=== PATIENT | male | born 1965 | race Caucasian/White ===

== ENCOUNTER → 2017-05-18 | Outpatient (CLI) | payer OTHER ==
--- NOTE | 2017-05-18 14:45 | US ---
EXAMINATION TYPE: US kidneys/renal and bladder DATE OF EXAM: 05/18/2017 COMPARISON: NONE CLINICAL HISTORY: N18.9 Renal failure. Diabetic, ARF EXAM MEASUREMENTS: Right Kidney: 12.2 x 6.0 x 6.8cm Left Kidney: 11.9 x 5.1 x 7.3cm Right Kidney: No hydronephrosis or masses seen Left Kidney: No hydronephrosis or masses seen Bladder: wnl Bilateral Jets seen: yes There is no evidence for hydronephrosis at this point in time. No nephrolithiasis is seen. No laquita s are identified. The urinary bladder is anechoic. Bilateral ureteral jets are seen. Cortical medul hans differentiation is maintained. No cortical renal thinning. IMPRESSION: No sonographic evidence of hydronephrosis, nephrolithiasis or medical renal disease.
== END | disposition home or self-care (01) ==
LOC: RADUSWWP 14:11
PROVIDERS: ATTEND Family Medicine
DX: N17.9 Acute kidney failure, unspecified (principal)
CPT/HCPCS: 76770

== ENCOUNTER → 2017-05-19 | Outpatient (CLI) | payer OTHER | END | disposition home or self-care (01) | LOC: LABWHC1 10:51 | PROVIDERS: ATTEND Physician Assistant | DX: R80.9 Proteinuria, unspecified (principal) | CPT/HCPCS: 36415; 82575 ==

== ENCOUNTER 2018-04-25 07:58 | Emergency (ER) | payer OTHER ==
[2018-04-25] MEDS ORDERED: FUROSEMIDE 10 MG/ML 4 ML VIAL IV STA (08:09)
[2018-04-25] MEDS ORDERED: IPRATROPIUM-ALBUTEROL 3 ML NEB INHALATION STA ×2 (08:09→09:34)
--- NOTE | 2018-04-25 08:28 | ED ---
General Adult HPI - General Chief complaint: Shortness of Breath Stated complaint: SOB Time Seen by Provider: 04/25/18 08:09 Source: patient, RN notes reviewed, old records reviewed Mode of arrival: wheelchair Limitations: no limitations - History of Present Illness Initial comments: This is a 52-year-old male to the ER for evaluation. Patient presents today for evaluation significant shortness of breath, history of heart disease. Patient has history of heart failure. Unable to sleep laying down unable to sleep laying backwards. Severe exertional dyspnea. No fevers. No chest pain currently. Patient has no modifying factors for symptoms at home to improve, they're significantly worse with any activity patient does admit to recently taking backup cigarette smoking. Little small cigar smoking. And states that that is been going on for some time secondary to increased stress. Patient admits not feeling good up unable to sleep tonight secondary to severe shortness of breath. Again denies any chest pain, mild edema and lower extremities - Related Data Home Medications Medication Instructions Recorded Confirmed Atorvastatin [Lipitor] 20 mg PO HS 12/02/15 12/03/15 Quinapril HCl 40 mg PO BID 12/02/15 12/03/15 amLODIPine [Norvasc] 5 mg PO DAILY 12/02/15 12/03/15 metFORMIN HCL 1,000 mg PO BID 12/02/15 12/03/15 Aspirin 325 mg PO DAILY 12/03/15 12/03/15 Previous Rx's Medication Instructions Recorded Levofloxacin [Levaquin] 500 mg PO DAILY #4 tab 12/10/15 Allergies Allergy/AdvReac Type Severity Reaction Status Date / Time No Known Allergies Allergy Verified 12/02/15 20:44 Review of Systems ROS Statement: Those systems with pertinent positive or pertinent negative responses have been documented in the HPI. ROS Other: All systems not noted in ROS Statement are negative. Past Medical History Past Medical History: Heart Failure, Diabetes Mellitus, Hyperlipidemia, Hypertension History of Any Multi-Drug Resistant Organisms: None Reported Past Surgical History: No Surgical Hx Reported Past Anesthesia/Blood Transfusion Reactions: No Reported Reaction Past Psychological History: No Psychological Hx Reported Smoking Status: Current every day smoker Past Alcohol Use History: None Reported Past Drug Use History: None Reported - Past Family History Father History Unknown: Yes Family Medical History: No Reported History Mother History Unknown: Yes Family Medical History: Coronary Artery Disease (CAD), Diabetes Mellitus Additional Family Medical History / Comment(s): cabg Brother(s) History Unknown: Yes Family Medical History: No Reported History Sister(s) History Unknown: Yes Family Medical History: No Reported History Son(s) History Unknown: Yes Family Medical History: No Reported History General Exam Limitations: no limitations General appearance: alert, anxious, in distress, obese Head exam: Present: atraumatic, normocephalic, normal inspection Eye exam: Present: normal appearance, PERRL, EOMI. Absent: scleral icterus, conjunctival injection, periorbital swelling ENT exam: Present: normal exam, mucous membranes moist Neck exam: Present: normal inspection. Absent: tenderness, meningismus, lymphadenopathy Respiratory exam: Present: respiratory distress, wheezes, rales, accessory muscle use, decreased breath sounds, prolonged expiratory. Absent: normal lung sounds bilaterally, rhonchi, stridor Cardiovascular Exam: Present: normal rhythm, tachycardia, normal heart sounds. Absent: systolic murmur, diastolic murmur, rubs, gallop, clicks GI/Abdominal exam: Present: soft, normal bowel sounds. Absent: distended, tenderness, guarding, rebound, rigid Extremities exam: Present: normal inspection, full ROM, normal capillary refill. Absent: tenderness, pedal edema, joint swelling, calf tenderness Back exam: Present: normal inspection Neurological exam: Present: alert, oriented X3, CN II-XII intact Psychiatric exam: Present: normal affect, normal mood Skin exam: Present: warm, dry, intact, normal color. Absent: rash Course Vital Signs 04/25/18 04/25/18 04/25/18 08:04 08:28 08:36 Temperature 98.4 F Pulse Rate 124 H 117 H 119 H Respiratory 26 H Rate Blood Pressure 192/111 O2 Sat by Pulse 91 L Oximetry 04/25/18 09:15 Temperature Pulse Rate 102 H Respiratory 20 Rate Blood Pressure 166/99 O2 Sat by Pulse 92 L Oximetry - Reevaluation(s) Reevaluation #1: 04/25/18 09:40 Patient has significant improvement after breathing treatment Reevaluation #2: 04/25/18 09:40 Medical record is reviewed include prior hospitalizations, prior troponin Reevaluation #3: 04/25/18 09:40 Patient's blood pressure much improved EKG Findings - EKG Comments: EKG Findings:: EKG shows sinus tachycardia rate 121, CA 150, QRS 112, QTc 457 Medical Decision Making - Medical Decision Making 52 male the ER for evaluation of respiratory failure secondary to COPD and CHF, hypoxia, patient is improved with treatment here in the emergency room, will admit for continued observation of cardiopulmonary resuscitation and status - Lab Data Result diagrams: 04/25/18 08:39 04/25/18 08:39 Lab Results 04/25/18 04/25/18 04/25/18 Range/Units 08:39 08:39 08:39 WBC 18.0 H (3.8-10.6) k/uL RBC 6.41 H (4.30-5.90) m/uL Hgb 18.2 H (13.0-17.5) gm/dL Hct 54.3 H (39.0-53.0) % MCV 84.8 (80.0-100.0) fL MCH 28.4 (25.0-35.0) pg MCHC 33.5 (31.0-37.0) g/dL RDW 13.6 (11.5-15.5) % Plt Count 279 (150-450) k/uL Neutrophils % 82 % Lymphocytes % 7 % Monocytes % 8 % Eosinophils % 1 % Basophils % 1 % Neutrophils # 14.8 H (1.3-7.7) k/uL Lymphocytes # 1.3 (1.0-4.8) k/uL Monocytes # 1.4 H (0-1.0) k/uL Eosinophils # 0.2 (0-0.7) k/uL Basophils # 0.1 (0-0.2) k/uL PT (9.0-12.0) sec INR (<1.2) APTT (22.0-30.0) sec Sodium 137 (137-145) mmol/L Potassium 5.3 H (3.5-5.1) mmol/L Chloride 105 (98-107) mmol/L Carbon Dioxide 19 L (22-30) mmol/L Anion Gap 13 mmol/L BUN 31 H (9-20) mg/dL Creatinine 1.20 (0.66-1.25) mg/dL Est GFR (CKD-EPI)AfAm 79 (>60 ml/min/1.73 sqM) Est GFR (CKD-EPI)NonAf 68 (>60 ml/min/1.73 sqM) Glucose 463 H* (74-99) mg/dL Calcium 9.9 (8.4-10.2) mg/dL Magnesium 1.8 (1.6-2.3) mg/dL Total Bilirubin 0.6 (0.2-1.3) mg/dL AST 33 (17-59) U/L ALT 34 (21-72) U/L Alkaline Phosphatase 61 (38-126) U/L Total Creatine Kinase 96 (55-170) U/L CK-MB (CK-2) 2.0 (0.0-2.4) ng/mL CK-MB (CK-2) Rel Index 2.1 Troponin I 0.031 (0.000-0.034) ng/mL NT-Pro-B Natriuret Pep pg/mL Total Protein 6.9 (6.3-8.2) g/dL Albumin 4.3 (3.5-5.0) g/dL 04/25/18 04/25/18 Range/Units 08:39 08:39 WBC (3.8-10.6) k/uL RBC (4.30-5.90) m/uL Hgb (13.0-17.5) gm/dL Hct (39.0-53.0) % MCV (80.0-100.0) fL MCH (25.0-35.0) pg MCHC (31.0-37.0) g/dL RDW (11.5-15.5) % Plt Count (150-450) k/uL Neutrophils % % Lymphocytes % % Monocytes % % Eosinophils % % Basophils % % Neutrophils # (1.3-7.7) k/uL Lymphocytes # (1.0-4.8) k/uL Monocytes # (0-1.0) k/uL Eosinophils # (0-0.7) k/uL Basophils # (0-0.2) k/uL PT 9.4 (9.0-12.0) sec INR 0.9 (<1.2) APTT 23.2 (22.0-30.0) sec Sodium (137-145) mmol/L Potassium (3.5-5.1) mmol/L Chloride (98-107) mmol/L Carbon Dioxide (22-30) mmol/L Anion Gap mmol/L BUN (9-20) mg/dL Creatinine (0.66-1.25) mg/dL Est GFR (CKD-EPI)AfAm (>60 ml/min/1.73 sqM) Est GFR (CKD-EPI)NonAf (>60 ml/min/1.73 sqM) Glucose (74-99) mg/dL Calcium (8.4-10.2) mg/dL Magnesium (1.6-2.3) mg/dL Total Bilirubin (0.2-1.3) mg/dL AST (17-59) U/L ALT (21-72) U/L Alkaline Phosphatase (38-126) U/L Total Creatine Kinase (55-170) U/L CK-MB (CK-2) (0.0-2.4) ng/mL CK-MB (CK-2) Rel Index Troponin I (0.000-0.034) ng/mL NT-Pro-B Natriuret Pep 3170 pg/mL Total Protein (6.3-8.2) g/dL Albumin (3.5-5.0) g/dL - Radiology Data Radiology results: report reviewed (Chest x-ray shows likely see OPD), image reviewed Disposition Clinical Impression: Elevated troponin I measurement, Congestive heart failure, Systolic CHF, acute on chronic, Acute exacerbation of chronic obstructive airways disease, HTN ( hypertension) Disposition: ADMITTED IP TO THIS HOSP Condition: Good Is patient prescribed a controlled substance at d/c from ED?: No Referrals: Judd Stanley MD [Primary Care Provider] - 1-2 days
[2018-04-25 08:57] LABS: Basophils # (A) 0.1 k/uL (0-0.2); Basophils % (A) 1 %; Eosinophils # (A) 0.2 k/uL (0-0.7); Eosinophils % (A) 1 %; HCT 54.3 % (39.0-53.0); HGB 18.2 gm/dL (13.0-17.5); Lymphocytes # (A) 1.3 k/uL (1.0-4.8); Lymphocytes % (A) 7 %; MCH 28.4 pg (25.0-35.0); MCHC 33.5 g/dL (31.0-37.0); MCV 84.8 fL (80.0-100.0); Mean Platelet Volume 7.8; Monocytes # (A) 1.4 k/uL (0-1.0); Monocytes % (A) 8 %; Neutrophils # (A) 14.8 k/uL (1.3-7.7); Neutrophils % (A) 82 %; Platelet Count 279 k/uL (150-450); RBC 6.41 m/uL (4.30-5.90); RDW 13.6 % (11.5-15.5)
--- NOTE | 2018-04-25 08:59 | XR ---
EXAMINATION TYPE: XR chest 2V DATE OF EXAM: 04/25/2018 HISTORY: difficulty breathing. REFERENCE: Previous study dated 12/10/2015. FINDINGS: Lines are prominent. Heart size upper limits of normal. The lungs are clear. Pleural spaces are clear. IMPRESSION: 1. CORRELATE FOR COPD. 2. BORDERLINE CARDIOMEGALY
[2018-04-25 09:03] LABS: INR 0.9 (<1.2); Partial Thromboplastin Time 23.2 sec (22.0-30.0); Prothrombin Time 9.4 sec (9.0-12.0)
[2018-04-25 09:08] LABS: Albumin 4.3 g/dL (3.5-5.0); Calcium 9.9 mg/dL (8.4-10.2); Magnesium 1.8 mg/dL (1.6-2.3); Total Bilirubin 0.6 mg/dL (0.2-1.3); Total Protein 6.9 g/dL (6.3-8.2)
[2018-04-25 09:15] LABS: Potassium 5.3 mmol/L (3.5-5.1)
[2018-04-25] MEDS ORDERED: LABETALOL 5 MG/ML VIAL MDV IVP STA (09:15)
[2018-04-25] MEDS ORDERED: ENALAPRILAT 1.25 MG/ML 1 ML VIAL IVP STA (09:15)
[2018-04-25] MEDS ORDERED: INSULIN REGULAR 100 UNIT/ML VIAL IV ONE (09:16)
[2018-04-25] MEDS ORDERED: SODIUM CHLORIDE 0.9% 1,000 ML IV STA ×2 (09:16)
[2018-04-25 09:26] LABS: Troponin I 0.031 ng/mL (0.000-0.034)
[2018-04-25] MEDS ORDERED: methylPREDNISolone SOD SUCCI 125 MG/2 ML VIAL IV STA (09:34)
[2018-04-25] MEDS ORDERED: SODIUM CHLORIDE 0.9% 1,000 ML IV SCH (09:45)
[2018-04-25 10:50] LABS: Glucose,Whole Blood 333 mg/dL (75-99)
[2018-04-25] MEDS ORDERED: NICOTINE 14MG/24HR PATCH TRANSDERM SCH (11:00)
[2018-04-25] MEDS ORDERED: ALBUTEROL NEBULIZED 2.5 MG/3 ML INHALATION STA (11:08)
[2018-04-25] MEDS ORDERED: IPRATROPIUM-ALBUTEROL 3 ML NEB INHALATION SCH (12:00)
[2018-04-25 12:30] VITALS: BP 120/57; RESP 16; TEMP 97.9
[2018-04-25 12:39] VITALS: PULSE 96
[2018-04-25] MEDS ORDERED: methylPREDNISolone SOD SUCCI 125 MG/2 ML VIAL IV SCH (18:00)
[2018-04-26] MEDS ORDERED: ENOXAPARIN 40 MG/0.4 ML SYRINGE SQ SCH (09:00)
== END 2018-04-25 13:15 | disposition other institution (70) ==
LOC: EC 07:58 → UNDOADMIN 09:38 → 6SEL 09:38 → EC 13:15
DX: J44.1 Chronic obstructive pulmonary disease with (acute) exacerbation (principal); I11.0 Hypertensive heart disease with heart failure; I50.9 Heart failure, unspecified; R79.89 Other specified abnormal findings of blood chemistry; E11.9 Type 2 diabetes mellitus without complications; E78.5 Hyperlipidemia, unspecified; F17.210 Nicotine dependence, cigarettes, uncomplicated; Z79.82 Long term (current) use of aspirin; Z79.84 Long term (current) use of oral hypoglycemic drugs; Z79.899 Other long term (current) drug therapy; Z53.8 Procedure and treatment not carried out for other reasons
CPT/HCPCS: 99285; 96374; 96375 ×2; 96361 ×3; 36415; 94640; 93005; 83880; 80053; 82550; 82553; 83735; 84484; 85025; 85610; 85730; 71046; S4990; J1940; J2930

== ENCOUNTER 2018-07-28 20:43 | Inpatient (IN) | payer OTHER ==
[2018-07-28] MEDS ORDERED: ETOMIDATE 2 MG/ML 10 ML VIAL IVP STA (20:47)
[2018-07-28] MEDS ORDERED: ROCURONIUM BROMIDE 10 MG/ML 10 ML VIAL IV STA (20:48)
[2018-07-28] MEDS ORDERED: PROPOFOL 1,000 MG in EMPTY BAG 1 BAG IV STA (20:50)
[2018-07-28] MEDS ORDERED: methylPREDNISolone SOD SUCCI 125 MG/2 ML VIAL IV STA (20:52)
[2018-07-28] MEDS ORDERED: ALBUTEROL NEBULIZED 2.5 MG/3 ML INHALATION STA (20:52)
[2018-07-28] MEDS ORDERED: IPRATROPIUM 0.5 MG/2.5 ML NEBU INHALATION STA (20:52)
[2018-07-28] MEDS ORDERED: FUROSEMIDE 10 MG/ML 4 ML VIAL IV STA (20:52)
[2018-07-28] MEDS ORDERED: NITROGLYCERIN-D5W PMX 50 MG in DEXTROSE/WATER 1 250ML.BAG IV STA (21:05)
[2018-07-28] MEDS: METOPROLOL TARTRATE 5 MG/5 ML VIAL IVP STA ×3 (21:05→21:20)
[2018-07-28 21:13] LABS: Basophils # (A) 0.1 k/uL (0-0.2); Basophils % (A) 1 %; Eosinophils # (A) 0.2 k/uL (0-0.7); Eosinophils % (A) 1 %; HCT 51.7 % (39.0-53.0); HGB 16.2 gm/dL (13.0-17.5); Hypochromasia Slight; Lymphocytes # (A) 4.4 k/uL (1.0-4.8); Lymphocytes % (A) 24 %; MCH 28.7 pg (25.0-35.0); MCHC 31.2 g/dL (31.0-37.0); MCV 91.8 fL (80.0-100.0); Mean Platelet Volume 7.4; Monocytes # (A) 1.5 k/uL (0-1.0); Monocytes % (A) 8 %; Neutrophils # (A) 11.6 k/uL (1.3-7.7); Neutrophils % (A) 63 %; Platelet Count 300 k/uL (150-450); RBC 5.63 m/uL (4.30-5.90); RDW 13.4 % (11.5-15.5); WBC 18.3 k/uL (3.8-10.6)
--- NOTE | 2018-07-28 21:16 | ED ---
General Adult HPI - General Chief complaint: Shortness of Breath Stated complaint: SOB Time Seen by Provider: 07/28/18 20:52 Source: patient, EMS, RN notes reviewed, old records reviewed Mode of arrival: EMS - History of Present Illness Initial comments: 52-year-old male presenting as priority 1 respiratory distress. History obtained from EMS. No history obtained from the patient. EMS reported 24 hours worsening dyspnea. History of COPD and heart failure. Upon EMS arrival patient was hypoxic in the 80s, severe respiratory distress. He was unable to tolerate CPAP. He was brought in on a nonrebreather. Patient had agonal respirations, cyanosis, tachycardia in the 150s and elevated blood pressure upon arrival. He is intubated at the time of presentation. - Related Data Home Medications Medication Instructions Recorded Confirmed Metoprolol Succinate (ER) [Toprol 50 mg PO DAILY 04/25/18 07/28/18 Xl] Albuterol Nebulized [Ventolin 1 vial INHALATION RT-TID 07/28/18 07/28/18 Nebulized] Insulin Glargine,Hum.rec.anlog 1 dose SQ DAILY 07/28/18 07/28/18 [Basaglar Kwikpen U-100] Quinapril HCl 40 mg PO DAILY 07/28/18 07/28/18 Previous Rx's Medication Instructions Recorded Albuterol Inhaler [Ventolin Hfa 1 - 2 puff INHALATION RT-Q6H #1 04/25/18 Inhaler] inhaler Furosemide [Lasix] 40 mg PO DAILY #5 tablet 04/25/18 Allergies Allergy/AdvReac Type Severity Reaction Status Date / Time No Known Allergies Allergy Verified 07/28/18 20:55 Review of Systems ROS Statement: Those systems with pertinent positive or pertinent negative responses have been documented in the HPI. ROS Other: All systems not noted in ROS Statement are negative. Limitations: ROS unobtainable due to patients medical condition Past Medical History Past Medical History: Heart Failure, Diabetes Mellitus, Hyperlipidemia, Hypertension History of Any Multi-Drug Resistant Organisms: None Reported Past Surgical History: No Surgical Hx Reported Past Anesthesia/Blood Transfusion Reactions: No Reported Reaction Past Psychological History: No Psychological Hx Reported Smoking Status: Current every day smoker Past Alcohol Use History: None Reported Past Drug Use History: None Reported - Past Family History Father History Unknown: Yes Family Medical History: No Reported History Mother History Unknown: Yes Family Medical History: Coronary Artery Disease (CAD), Diabetes Mellitus Additional Family Medical History / Comment(s): cabg Brother(s) History Unknown: Yes Family Medical History: No Reported History Sister(s) History Unknown: Yes Family Medical History: No Reported History Son(s) History Unknown: Yes Family Medical History: No Reported History General Exam Limitations: altered mental status General appearance: obtunded Head exam: Present: atraumatic, normocephalic Eye exam: Present: normal appearance, PERRL ENT exam: Present: normal exam Neck exam: Present: normal inspection Respiratory exam: Present: respiratory distress, wheezes, rales, accessory muscle use, decreased breath sounds Cardiovascular Exam: Present: normal rhythm, tachycardia GI/Abdominal exam: Present: soft, distended. Absent: tenderness Extremities exam: Present: pedal edema Skin exam: Present: cyanosis, diaphoretic Course Vital Signs 07/28/18 07/28/18 07/28/18 20:43 20:49 21:02 Temperature 97.5 F L Pulse Rate 144 H 150 H Respiratory 32 H 32 H 16 Rate Blood Pressure 227/163 O2 Sat by Pulse 80 L Oximetry 07/28/18 21:20 Temperature Pulse Rate 126 H Respiratory 14 Rate Blood Pressure 197/141 O2 Sat by Pulse 96 Oximetry - Reevaluation(s) Reevaluation #1: 07/28/18 21:05 Severity respiratory distress, hypertensive, tachycardic, hypoxic. 07/28/18 22:30 Further history obtained from the patient's , he has had episodes of heart failure requiring intubation in the past. Reevaluation #2: 07/28/18 22:04 Patient is evaluated by admitting physician Dr. Fleming in the emergency department. Case discussed with both cardiology and pulmonology prior to admission. EKG Findings - EKG Comments: EKG Findings:: EKG obtained at 2059, SVT, rate of 145 QRS duration 114, QTC 590. EKG obtained at 2135, interpreted as atrial flutter with 2-1 AV conduction , I feel this may be sinus tachycardia at rate of 125, rightward access, normal WA interval. QRS duration 114, QTC 453. EKG obtained 4, sinus tachycardia, left atrial enlargement, rightward axis, rate of 112, WA interval 158, QRS duration 112, QTC 437 elevation or T-wave inversion in the lateral precordial leads. Procedures - Intubation Time Out Performed: Yes Sedative: Etomidate Mg Given: 20 Paralytic: Rocuronium Mg Given: 80 Laryngoscope: Willis Size: 3 ET Tube Size: 8 ET Tube Uncuffed: No Tube Secured Depth (cm): 24 Tube Secured Location: lips Tube Placement Confirmation: visualized tube passing through cords, equal breath sounds bilaterally, no breath sounds over epigastrium, confirmation by capnometry Patient Tolerated Procedure: well Intubation Complications: other Additional Comments: Oropharynx failed with emesis Medical Decision Making - Medical Decision Making 52-year-old male presenting with severe respiratory distress, near cardiopulmonary arrest. Patient is tachypneic, cyanotic and lethargic on initial presentation. He was intubated immediately. Initial vital signs reveal tachycardia, tachypnea, hypoxia, and severely elevated blood pressure. Concern is that this is related to hypertensive emergency with flash pulmonary edema. Patient is started on nitroglycerin infusion, given metoprolol for rate control, and IV Lasix. Laboratory studies reveal significant abnormalities including white blood cell count elevated 18.3, hemoglobin is normal 16.4, lactic acid 10.3, this is likely related to hypoxia and is treated with mechanical ventilation and respiratory support. Troponin elevated 0.047, elevated BNP 2060, chest x-ray shows cardiomegaly with pulmonary edema. Initial ABG is abnormal with a pH is 7.05 and a CO2 of 77. Case is discussed with cardiology and pulmonology. Patient will be admitted to the ICU. Maintained on nitroglycerin, propofol infusion, heparin. - Lab Data Result diagrams: 07/28/18 20:54 07/28/18 20:54 Lab Results 07/28/18 07/28/18 07/28/18 Range/Units 20:54 20:54 20:54 WBC 18.3 H (3.8-10.6) k/uL RBC 5.63 (4.30-5.90) m/uL Hgb 16.2 (13.0-17.5) gm/dL Hct 51.7 (39.0-53.0) % MCV 91.8 (80.0-100.0) fL MCH 28.7 (25.0-35.0) pg MCHC 31.2 (31.0-37.0) g/dL RDW 13.4 (11.5-15.5) % Plt Count 300 (150-450) k/uL Neutrophils % 63 % Lymphocytes % 24 % Monocytes % 8 % Eosinophils % 1 % Basophils % 1 % Neutrophils # 11.6 H (1.3-7.7) k/uL Lymphocytes # 4.4 (1.0-4.8) k/uL Monocytes # 1.5 H (0-1.0) k/uL Eosinophils # 0.2 (0-0.7) k/uL Basophils # 0.1 (0-0.2) k/uL Hypochromasia Slight PT (9.0-12.0) sec INR (<1.2) APTT (22.0-30.0) sec Sample Site ABG pH (7.35-7.45) ABG pCO2 (35-45) mmHg ABG pO2 (83-108) mmHg ABG HCO3 (21-25) mmol/L ABG Total CO2 (19-24) mmol/L ABG O2 Saturation (94-97) % ABG Base Excess mmol/L Juwan Test FiO2 % Sodium 138 (137-145) mmol/L Potassium 5.6 H (3.5-5.1) mmol/L Chloride 103 (98-107) mmol/L Carbon Dioxide 18 L (22-30) mmol/L Anion Gap 17 mmol/L BUN 22 H (9-20) mg/dL Creatinine 1.57 H (0.66-1.25) mg/dL Est GFR (CKD-EPI)AfAm 57 (>60 ml/min/1.73 sqM) Est GFR (CKD-EPI)NonAf 49 (>60 ml/min/1.73 sqM) Glucose 381 H (74-99) mg/dL POC Glucose (mg/dL) (75-99) mg/dL POC Glu Steward/Stewardess Third ID Plasma Lactic Acid Nick (0.7-2.0) mmol/L Calcium 9.3 (8.4-10.2) mg/dL Magnesium 2.2 (1.6-2.3) mg/dL Total Bilirubin 1.6 H (0.2-1.3) mg/dL AST 112 H (17-59) U/L ALT 16 L (21-72) U/L Alkaline Phosphatase 49 (38-126) U/L Total Creatine Kinase 145 (55-170) U/L CK-MB (CK-2) 2.1 (0.0-2.4) ng/mL CK-MB (CK-2) Rel Index 1.4 Troponin I 0.047 H* (0.000-0.034) ng/mL NT-Pro-B Natriuret Pep pg/mL Total Protein 7.3 (6.3-8.2) g/dL Albumin 4.4 (3.5-5.0) g/dL 07/28/18 07/28/18 07/28/18 Range/Units 20:54 20:54 20:54 WBC (3.8-10.6) k/uL RBC (4.30-5.90) m/uL Hgb (13.0-17.5) gm/dL Hct (39.0-53.0) % MCV (80.0-100.0) fL MCH (25.0-35.0) pg MCHC (31.0-37.0) g/dL RDW (11.5-15.5) % Plt Count (150-450) k/uL Neutrophils % % Lymphocytes % % Monocytes % % Eosinophils % % Basophils % % Neutrophils # (1.3-7.7) k/uL Lymphocytes # (1.0-4.8) k/uL Monocytes # (0-1.0) k/uL Eosinophils # (0-0.7) k/uL Basophils # (0-0.2) k/uL Hypochromasia PT 9.8 (9.0-12.0) sec INR 1.0 (<1.2) APTT 19.5 L (22.0-30.0) sec Sample Site ABG pH (7.35-7.45) ABG pCO2 (35-45) mmHg ABG pO2 (83-108) mmHg ABG HCO3 (21-25) mmol/L ABG Total CO2 (19-24) mmol/L ABG O2 Saturation (94-97) % ABG Base Excess mmol/L Juwan Test FiO2 % Sodium (137-145) mmol/L Potassium (3.5-5.1) mmol/L Chloride (98-107) mmol/L Carbon Dioxide (22-30) mmol/L Anion Gap mmol/L BUN (9-20) mg/dL Creatinine (0.66-1.25) mg/dL Est GFR (CKD-EPI)AfAm (>60 ml/min/1.73 sqM) Est GFR (CKD-EPI)NonAf (>60 ml/min/1.73 sqM) Glucose (74-99) mg/dL POC Glucose (mg/dL) (75-99) mg/dL POC Glu Steward/Stewardess Third ID Plasma Lactic Acid Nick 10.3 H* (0.7-2.0) mmol/L Calcium (8.4-10.2) mg/dL Magnesium (1.6-2.3) mg/dL Total Bilirubin (0.2-1.3) mg/dL AST (17-59) U/L ALT (21-72) U/L Alkaline Phosphatase (38-126) U/L Total Creatine Kinase (55-170) U/L CK-MB (CK-2) (0.0-2.4) ng/mL CK-MB (CK-2) Rel Index Troponin I (0.000-0.034) ng/mL NT-Pro-B Natriuret Pep 2060 pg/mL Total Protein (6.3-8.2) g/dL Albumin (3.5-5.0) g/dL 07/28/18 07/28/18 Range/Units 21:12 21:35 WBC (3.8-10.6) k/uL RBC (4.30-5.90) m/uL Hgb (13.0-17.5) gm/dL Hct (39.0-53.0) % MCV (80.0-100.0) fL MCH (25.0-35.0) pg MCHC (31.0-37.0) g/dL RDW (11.5-15.5) % Plt Count (150-450) k/uL Neutrophils % % Lymphocytes % % Monocytes % % Eosinophils % % Basophils % % Neutrophils # (1.3-7.7) k/uL Lymphocytes # (1.0-4.8) k/uL Monocytes # (0-1.0) k/uL Eosinophils # (0-0.7) k/uL Basophils # (0-0.2) k/uL Hypochromasia PT (9.0-12.0) sec INR (<1.2) APTT (22.0-30.0) sec Sample Site r brach ABG pH 7.05 L* (7.35-7.45) ABG pCO2 77 H* (35-45) mmHg ABG pO2 256 H (83-108) mmHg ABG HCO3 21 (21-25) mmol/L ABG Total CO2 24 (19-24) mmol/L ABG O2 Saturation 98.1 H (94-97) % ABG Base Excess -9.2 mmol/L Juwan Test Yes FiO2 100 % Sodium (137-145) mmol/L Potassium (3.5-5.1) mmol/L Chloride (98-107) mmol/L Carbon Dioxide (22-30) mmol/L Anion Gap mmol/L BUN (9-20) mg/dL Creatinine (0.66-1.25) mg/dL Est GFR (CKD-EPI)AfAm (>60 ml/min/1.73 sqM) Est GFR (CKD-EPI)NonAf (>60 ml/min/1.73 sqM) Glucose (74-99) mg/dL POC Glucose (mg/dL) 391 H (75-99) mg/dL POC Glu Steward/Stewardess Third ID Jaime Hathaway Plasma Lactic Acid Nick (0.7-2.0) mmol/L Calcium (8.4-10.2) mg/dL Magnesium (1.6-2.3) mg/dL Total Bilirubin (0.2-1.3) mg/dL AST (17-59) U/L ALT (21-72) U/L Alkaline Phosphatase (38-126) U/L Total Creatine Kinase (55-170) U/L CK-MB (CK-2) (0.0-2.4) ng/mL CK-MB (CK-2) Rel Index Troponin I (0.000-0.034) ng/mL NT-Pro-B Natriuret Pep pg/mL Total Protein (6.3-8.2) g/dL Albumin (3.5-5.0) g/dL Critical Care Time Critical Care Time: Yes Total Critical Care Time: 35 Disposition Clinical Impression: Systolic congestive heart failure, Elevated troponin I measurement, Systolic CHF, acute on chronic, Hypertensive emergency, HTN (hypertension) Disposition: ADMITTED IP TO THIS HOSP Condition: Serious Is patient prescribed a controlled substance at d/c from ED?: No Referrals: Judd Stanley MD [Primary Care Provider] - 1-2 days Decision to Admit Reason: Admit from EC Decision Date: 07/28/18 Decision Time: 22:35
--- NOTE | 2018-07-28 21:17 | XR ---
EXAMINATION TYPE: XR chest 1V portable DATE OF EXAM: 07/28/2018 COMPARISON: 04/25/2018 HISTORY: Difficulty breathing TECHNIQUE: Single frontal view of the chest is obtained. FINDINGS: Endotracheal tube is 6.5 cm from the dilshad. There is pulmonary interstitial and to a less er extent alveolar edema. There are chest leads. There is nasogastric tube. This appears in good posi tion. IMPRESSION: There is pulmonary edema that is slightly worse than last exam. Cardiomegaly.
[2018-07-28 21:23] LABS: Albumin 4.4 g/dL (3.5-5.0); Calcium 9.3 mg/dL (8.4-10.2); Magnesium 2.2 mg/dL (1.6-2.3); Total Bilirubin 1.6 mg/dL (0.2-1.3); Total Protein 7.3 g/dL (6.3-8.2)
[2018-07-28 21:32] LABS: Glucose,Whole Blood 391 mg/dL (75-99)
[2018-07-28 21:39] LABS: Creatine Kinase MB 2.1 ng/mL (0.0-2.4)
[2018-07-28 21:40] LABS: ABG Base Excess -9.2 mmol/L; ABG HCO3 21 mmol/L (21-25); ABG Oxygen Saturation 98.1 % (94-97); ABG PO2 256 mmHg (83-108); ABG TCO2 24 mmol/L (19-24)
[2018-07-28 21:42] LABS: ABG PCO2 77 mmHg (35-45); ABG PH 7.05 (7.35-7.45)
[2018-07-28 21:42] LABS: Troponin I 0.047 ng/mL (0.000-0.034)
[2018-07-28] MEDS ORDERED: HEPARIN SODIUM,PORCINE 5,000 UNIT/ML 1 ML VIAL IV ONE (21:45)
[2018-07-28 21:53] LABS: Prothrombin Time 9.8 sec (9.0-12.0)
[2018-07-28] MEDS ORDERED: NALOXONE 0.4 MG/ML 1 ML VIAL IV PRN (22:02)
[2018-07-28 22:03] LABS: Partial Thromboplastin Time 19.5 sec (22.0-30.0)
[2018-07-28 22:25] LABS: Potassium 5.6 mmol/L (3.5-5.1)
[2018-07-28] MEDS: HEPARIN SOD,PORK IN 0.45% NACL 25,000 UNIT in 0.45% NACL 1 500ML.BAG IV SCH (22:37)
--- NOTE | 2018-07-28 22:56 | HP ---
HISTORY AND PHYSICAL CHIEF COMPLAINT: Shortness of breath. HISTORY OF PRESENT ILLNESS: This 52-year-old gentleman with a past medical history of CHF, diabetes mellitus , type 2, hypertension, hyperlipidemia, was noted to have shortness of breath by the family at home. EMS was called. Patient came to [facility]. The patient was basically unresponsive, in severe significant respiratory distress. The pulse ox was in the 80s, and because of severe respiratory distress the patient has been mechanically intubated and sedated at this time. The patient is on assist control 60 at 16 and 100% FiO2, PEEP of 5, saturating 100%. The patient is being closely monitored in ICU at this time. There is no history of any trauma. No history of any fever, rigor or chills. A detailed history could not be taken from the patient because he is mechanically ventilated and sedated. Most of the history is taken from my discussion with staff as well as review of the chart at this time. The patient was given metoprolol 50 mg and nitroglycerin drip was also initiated. PAST MEDICAL HISTORY: 1. CHF. 2. Diabetes mellitus. 3. Hypertension. 4. Hyperlipidemia. HOME MEDICATIONS: 1. Quinapril 40 mg p.o. daily. 2. Toprol-XL 50 mg p.o. daily. 3. Lantus daily. 4. Lasix 40 mg daily. 5. Ventolin 1-2 puffs p.r.n. ALLERGIES: NONE. Family history, social history, review of systems could not be taken because of the patient's mental status. Smoking per chart. PHYSICAL EXAMINATION: Patient is mechanically ventilated and sedated, as mentioned earlier. Pulse is 126, blood pressure 197/141, respiration 14, temperature normal, pulse ox HEENT: Conjunctivae normal. Oral mucosa moist. NECK: No jugular venous distention. No carotid bruit. No lymph node enlargement. CARDIOVASCULAR SYSTEM: S1, S2 muffled. No S3. No S4. RESPIRATORY SYSTEM: Breath sounds diminished at the bases. A few scattered rhonchi and crackles. ABDOMEN: Soft, obese, non-tender. LEGS: No edema. No swelling. NERVOUS SYSTEM: Patient is mechanically ventilated and sedated. SKIN: Decreased erythema present. LAB INVESTIGATIONS: Lab investigations at this time show WBC 18.3, hemoglobin 16.2, pH of 7.04 and lactic acid 10.3. Troponin 0.047. ASSESSMENT: 1. Possible acute pulmonary edema with congestive heart failure, acute exacerbation, with acute hypoxic respiratory failure, on mechanical ventilation. 2. Increased white count. 3. Rule out sepsis. 4. Severe metabolic acidosis. 5. Change in mental status, metabolic encephalopathy, multifactorial. 6. Increased plasma lactic acid. 7. Troponin 0.047, indeterminate. 8. History of congestive heart failure. 9. History of diabetes mellitus, type 2. 10.Hypertension. 11.Hyperlipidemia. 12.History of nicotine dependence. RECOMMENDATIONS AND DISCUSSION: In this 52-year-old gentleman who presented with multiple complex medical issues , we will monitor the patient closely, continue the current medications, continue symptomatic treatment. At this time I recommend to continue the mechanical ventilation. Continue the bronchodilators. I would recommend steroids. Monitor blood pressure closely. Nitroglycerin drip, p.r.n. hydralazine. Monitor in the ICU. Consult Cardiology and Pulmonology. I would also recommend a set of blood cultures. Empiric antibiotics, also. Prognosis is guarded because of multiple complex medical issues. Further recommendations to follow. Continue with Lasix. Two-D echo with Doppler. Further workup. See orders for details. Further recommendations to follow. MMODL / IJN: [id number] / DUANE
[2018-07-29] MEDS ORDERED: FUROSEMIDE 10 MG/ML 4 ML VIAL IV SCH
[2018-07-29 02:55] LABS: Glucose,Whole Blood 330 mg/dL (75-99)
[2018-07-29 03:26] LABS: ABG Base Excess -1.4 mmol/L; ABG HCO3 24 mmol/L (21-25); ABG Oxygen Saturation 96.3 % (94-97); ABG PCO2 45 mmHg (35-45); ABG PH 7.34 (7.35-7.45); ABG PO2 98 mmHg (83-108); ABG TCO2 26 mmol/L (19-24)
[2018-07-29] MEDS ORDERED: FUROSEMIDE 10 MG/ML 10 ML VIAL IV STA (03:43)
[2018-07-29] MEDS ORDERED: FUROSEMIDE 250 MG in SODIUM CHLORIDE 0.9% 225 ML IVP SCH (03:45)
[2018-07-29] MEDS: INSULIN ASPART 100 UNIT/ML 1 ML 10 ML VIAL SQ SCH ×2 (04:20→11:42)
[2018-07-29 04:28] LABS: Glucose,Whole Blood 327 mg/dL (75-99)
[2018-07-29] MEDS ORDERED: INSULIN REGULAR 100 UNIT in SODIUM CHLORIDE 0.9% 100 ML IV SCH (04:30)
[2018-07-29 04:33] LABS: Basophils % (A) 0 %; Eosinophils # (A) 0.1 k/uL (0-0.7); Eosinophils % (A) 1 %; HCT 46.6 % (39.0-53.0); HGB 15.5 gm/dL (13.0-17.5); Lymphocytes # (A) 0.5 k/uL (1.0-4.8); Lymphocytes % (A) 3 %; MCH 28.9 pg (25.0-35.0); MCHC 33.2 g/dL (31.0-37.0); MCV 87.1 fL (80.0-100.0); Mean Platelet Volume 7.3; Monocytes # (A) 0.9 k/uL (0-1.0); Monocytes % (A) 5 %; Neutrophils # (A) 16.1 k/uL (1.3-7.7); Neutrophils % (A) 91 %; Platelet Count 220 k/uL (150-450); RBC 5.35 m/uL (4.30-5.90); RDW 13.7 % (11.5-15.5); WBC 17.7 k/uL (3.8-10.6)
[2018-07-29 04:42] LABS: Magnesium 2.1 mg/dL (1.6-2.3); Phosphorus 6.4 mg/dL (2.5-4.5); Potassium 5.1 mmol/L (3.5-5.1)
[2018-07-29 05:02] LABS: Amphetamine Screen,Urine Not Detected (NotDetected); Barbiturate Screen,Urine Not Detected (NotDetected); Benzodiazepines Screen,Urine Not Detected (NotDetected); Cocaine Screen,Urine Not Detected (NotDetected); Methadone Screen, Urine Not Detected (NotDetected); Opiate Screen,Urine Not Detected (NotDetected); Oxycodone Screen, Urine Not Detected (NotDetected); Phencyclidine Screen,Urine Not Detected (NotDetected); Tricyclic Antidepressant,Urine Not Detected (NotDetected); Urn Cannabinoid Scrn Not Detected (NotDetected)
[2018-07-29] MEDS: HEPARIN SODIUM,PORCINE 5,000 UNIT/ML 1 ML VIAL IV PRN ×3 (05:26→19:15)
[2018-07-29] MEDS: PROPOFOL 1,000 MG in EMPTY BAG 1 BAG IV SCH ×8 (06:36→22:16)
--- NOTE | 2018-07-29 07:09 | XR ---
EXAMINATION TYPE: XR chest 1V DATE OF EXAM: 07/29/2018 COMPARISON: 07/28/2018 HISTORY: SOB, Follow Up FINDINGS: Indwelling tubes and catheters are unchanged. No change in bibasilar opacities. Improved pulmonary venous congestion. Stable appearance of the cardio-mediastinal structures at this time. Pleural effusion unchanged. IMPRESSION: 1. Improved pulmonary venous congestion otherwise stable examination.. Clinical correlation and foll ow up until resolution is recommended.
[2018-07-29 08:06] LABS: ABG HCO3 24 mmol/L (21-25); ABG Oxygen Saturation 94.4 % (94-97); ABG PCO2 42 mmHg (35-45); ABG PH 7.37 (7.35-7.45); ABG PO2 79 mmHg (83-108); ABG TCO2 26 mmol/L (19-24)
[2018-07-29] MEDS ORDERED: INSULIN REGULAR BOLUS (FROM DRIP BAG) IV PRN (08:11)
[2018-07-29] MEDS: INSULIN REGULAR 100 UNIT in SODIUM CHLORIDE 0.9% 100 ML IV SCH (08:15)
[2018-07-29 08:22] LABS: Glucose,Whole Blood 339 mg/dL (75-99)
[2018-07-29 09:23] LABS: Glucose,Whole Blood 196 mg/dL (75-99)
[2018-07-29] MEDS: CHLORHEXIDINE GLUCONATE 15 ML CUP MUCOUS MEM SCH ×2 (09:44→21:38)
[2018-07-29] MEDS: PANTOPRAZOLE 40 MG/10 ML VIAL IV SCH (09:44)
[2018-07-29] MEDS: METOPROLOL TARTRATE 25 MG TAB PO SCH ×2 (09:44→21:38)
--- NOTE | 2018-07-29 09:58 | P.CNPUL ---
History of Present Illness Consult date: 07/29/18 Requesting physician: Santi Fleming Reason for consult: other (Acute hypoxic respiratory failure requiring intubation and mechanical ventilation.) Chief complaint: Shortness of breath History of present illness: This is a 52-year-old white male with history of multiple medical problems including chronic LV dysfunction and ejection fraction of 20-25% based on an echocardiogram done in 2016. Patient used to see Dr. Freire for his nonischemic cardiomyopathy, however he has not been seen by cardiology for quite some time. Patient is also known to have history of congestive heart failure, type 2 diabetes, hypertension, he was brought by EMS with complaints of increased shortness of breath, and apparently upon arrival patient was noted to be in severe respiratory distress, unresponsive, pulse oximetry was in the 80s, patient had to be intubated immediately upon arrival. Chest x-ray was mostly consistent with pulmonary edema. Patient was placed on mechanical ventilation, presently on the following vent settings. Assist control rate of 18, tidal volume of 600 FiO2 of 80%, and PEEP of 5. Upon arrival to the ER patient was noted to have significantly elevated blood pressure over 200 systolic, and he was treated with nitroglycerin. Today he is off nitroglycerin , he is on Lasix drip which I have ordered last night, he is also on propofol at 50 mcg/kg/m, his peak airway pressure is 26 and his plateau pressures are in the range of high teens. Patient is hemodynamically stable today, not requiring any nitroglycerin. He is still on mechanical ventilation, and he is still on Lasix drip. Patient is sedated, and he seems to be responding well to Lasix drip. Labs on presentation showed leukocytosis with WBC count of 18.3. Hemoglobin 16.2. His initial ABG showed a pO2 of 256 pCO2 of 77 pH of 7.05. His BUN was 22 creatinine 1.57 blood sugar 391. Lactic acid was 10.3, follow- up lactic acid this morning is 3.0. Liver transaminases were slightly elevated. Troponin on presentation was 0.047 follow-up troponin this morning is 0.127 and proBNP level is just over 2000. Drug screen was negative. Influenza A and influenza B screening negative. Review of Systems ROS unobtainable: due to endotracheal tube Past Medical History Past Medical History: Heart Failure, Diabetes Mellitus, Hyperlipidemia, Hypertension History of Any Multi-Drug Resistant Organisms: None Reported Past Surgical History: No Surgical Hx Reported Past Anesthesia/Blood Transfusion Reactions: No Reported Reaction Past Psychological History: No Psychological Hx Reported Smoking Status: Current every day smoker Past Alcohol Use History: None Reported Past Drug Use History: None Reported - Past Family History Father History Unknown: Yes Family Medical History: No Reported History Mother History Unknown: Yes Family Medical History: Coronary Artery Disease (CAD), Diabetes Mellitus Additional Family Medical History / Comment(s): cabg Brother(s) History Unknown: Yes Family Medical History: No Reported History Sister(s) History Unknown: Yes Family Medical History: No Reported History Son(s) History Unknown: Yes Family Medical History: No Reported History Medications and Allergies Home Medications Medication Instructions Recorded Confirmed Type Albuterol Inhaler [Ventolin Hfa 1 - 2 puff INHALATION RT-Q6H #1 04/25/18 Rx Inhaler] inhaler Furosemide [Lasix] 40 mg PO DAILY #5 tablet 04/25/18 07/28/18 Rx Metoprolol Succinate (ER) [Toprol 50 mg PO DAILY 04/25/18 07/28/18 History Xl] Albuterol Nebulized [Ventolin 1 vial INHALATION RT-TID 07/28/18 07/28/18 History Nebulized] Insulin Glargine,Hum.rec.anlog 1 dose SQ DAILY 07/28/18 07/28/18 History [Basaglar Kwikpen U-100] Quinapril HCl 40 mg PO DAILY 07/28/18 07/28/18 History Allergies Allergy/AdvReac Type Severity Reaction Status Date / Time No Known Allergies Allergy Verified 07/28/18 20:55 Physical Exam Vitals: Vital Signs Temp Pulse Resp BP Pulse Ox 07/29/18 08:00 98.3 F 81 24 98/61 95 07/29/18 07:00 90 22 113/72 94 L 07/29/18 06:00 89 21 121/64 95 07/29/18 05:00 89 21 111/68 97 07/29/18 04:00 100 20 112/67 95 07/29/18 03:10 95 07/29/18 03:00 88 21 114/75 97 07/29/18 02:10 67 14 104/67 99 07/29/18 02:00 77 14 97/66 100 07/29/18 01:50 78 14 93/62 99 07/29/18 01:40 78 90/59 99 07/29/18 01:30 77 85/58 98 07/29/18 01:20 77 87/59 99 07/29/18 01:10 78 88/54 07/29/18 01:00 80 14 82/53 98 07/29/18 00:50 77 84/52 98 07/29/18 00:40 80 95/61 98 07/29/18 00:30 92 103/72 98 07/29/18 00:14 90 14 94/67 98 07/29/18 00:10 86 96/72 99 07/29/18 00:00 92 90/58 98 07/28/18 23:50 78 81/48 98 07/28/18 23:40 75 78/46 98 07/28/18 23:30 74 82/45 98 07/28/18 23:20 78 80/58 98 07/28/18 23:10 87 120/74 98 07/28/18 23:00 87 120/74 98 07/28/18 22:10 113 H 170/109 98 07/28/18 22:00 120 H 183/129 99 07/28/18 21:30 125 H 191/137 98 07/28/18 21:20 126 H 14 197/141 96 07/28/18 21:02 150 H 16 07/28/18 20:49 32 H 07/28/18 20:43 97.5 F L 144 H 32 H 227/163 80 L Intake and Output 07/28/18 07/29/18 07/29/18 22:59 06:59 14:59 Intake Total 17.743 252.220 87.253 Output Total 1270 175 Balance 17.743 -1017.780 -87.747 Intake: IV 20 10 Furosemide 250 mg In 20 10 Sodium Chloride 0.9% 225 ml @ 10 MG/HR 10 mls/hr IVP .Q24H [facility] Rx#: [id number] Intake, IV Titration 17.743 232.220 77.253 Amount Heparin Sod,Pork in 0.45% 140.563 NaCl 25,000 unit In 0.45 % NaCl 1 500ml.bag @ 7. 121 UNITS/KG/HR 20 mls/hr IV .Q24H [facility] Rx#: [id number] Insulin Regular 100 unit 14.073 In Sodium Chloride 0.9% 100 ml @ Per Protocol IV .Q0M [facility] Rx#:[id number] Nitroglycerin-D5w Pmx 50 1.60 7.8 mg In Dextrose/Water 1 250ml.bag @ 5 MCG/MIN 1.5 mls/hr IV .Q24H [facility] Rx#: [id number] Propofol 1,000 mg In 63.18 Empty Bag 1 bag @ Titrate IV .Q0M [facility] Rx#: [id number] Propofol 1,000 mg In 16.143 83.857 Empty Bag 1 bag @ Titrate IV .Q0M [facility] Rx#: [id number] Output: Urine 1270 175 Other: Voiding Method Indwelling Catheter Weight 140.432 kg 128.3 kg Physical Exam: Revealed a 52-year-old white male, sedated, on mechanical ventilation, in no distress. Head: Atraumatic, normocephalic. Endotracheal tube and orogastric tube are intact. HEENT:[Neck is supple.] [No neck masses.] [No thyromegaly.] [No JVD.] PERRLA, EOMI, no icterus. Moist mucous membranes noted. Chest: [Crackles and rhonchi noted bilaterally. No wheezes. Symmetrical chest expansion. No chest wall tenderness. Cardiac Exam: [Normal S1 and S2, no S3 gallop, no murmur.] Abdomen: [Obese, Soft, nontender, no megaly, no rebound, no guarding, normal bowel sounds.] Extremities: [Trace of bipedal edema No clubbing, no cyanosis.] Neurological Exam: Patient is sedated, presently on propofol drip, could not neurologically assessed the patient. However this will be done later today. Psychiatric: Could not be assessed. Skin: No rashes Results - Laboratory Findings CBC and BMP: 07/29/18 04:10 07/29/18 04:10 ABG ABG pH 7.37 (7.35-7.45) 07/29/18 07:58 ABG pCO2 42 mmHg (35-45) 07/29/18 07:58 ABG pO2 79 mmHg (83-108) L 07/29/18 07:58 ABG O2 Saturation 94.4 % (94-97) 07/29/18 07:58 PT/INR, D-dimer PT 9.8 sec (9.0-12.0) 07/28/18 20:54 INR 1.0 (<1.2) 07/28/18 20:54 Abnormal lab findings: Abnormal Labs 07/28/18 07/28/18 07/28/18 20:54 20:54 20:54 WBC 18.3 H Neutrophils # 11.6 H Lymphocytes # Monocytes # 1.5 H APTT ABG pH ABG pCO2 ABG pO2 ABG Total CO2 ABG O2 Saturation Potassium 5.6 H Carbon Dioxide 18 L BUN 22 H Creatinine 1.57 H Glucose 381 H POC Glucose (mg/dL) Plasma Lactic Acid Nick Phosphorus Total Bilirubin 1.6 H AST 112 H ALT 16 L Troponin I 0.047 H* 07/28/18 07/28/18 07/28/18 20:54 20:54 21:12 WBC Neutrophils # Lymphocytes # Monocytes # APTT 19.5 L ABG pH ABG pCO2 ABG pO2 ABG Total CO2 ABG O2 Saturation Potassium Carbon Dioxide BUN Creatinine Glucose POC Glucose (mg/dL) 391 H Plasma Lactic Acid Nick 10.3 H* Phosphorus Total Bilirubin AST ALT Troponin I 07/28/18 07/29/18 07/29/18 21:35 01:16 02:42 WBC Neutrophils # Lymphocytes # Monocytes # APTT ABG pH 7.05 L* ABG pCO2 77 H* ABG pO2 256 H ABG Total CO2 ABG O2 Saturation 98.1 H Potassium Carbon Dioxide BUN Creatinine Glucose POC Glucose (mg/dL) 330 H Plasma Lactic Acid Nick 3.0 H* Phosphorus Total Bilirubin AST ALT Troponin I 07/29/18 07/29/18 07/29/18 03:24 04:10 04:10 WBC 17.7 H Neutrophils # 16.1 H Lymphocytes # 0.5 L Monocytes # APTT ABG pH 7.34 L ABG pCO2 ABG pO2 ABG Total CO2 26 H ABG O2 Saturation Potassium Carbon Dioxide BUN 38 H Creatinine 1.98 H Glucose 332 H POC Glucose (mg/dL) Plasma Lactic Acid Nick Phosphorus 6.4 H Total Bilirubin AST ALT Troponin I 07/29/18 07/29/18 07/29/18 04:17 05:19 07:58 WBC Neutrophils # Lymphocytes # Monocytes # APTT ABG pH ABG pCO2 ABG pO2 79 L ABG Total CO2 26 H ABG O2 Saturation Potassium Carbon Dioxide BUN Creatinine Glucose POC Glucose (mg/dL) 327 H Plasma Lactic Acid Nick Phosphorus Total Bilirubin AST ALT Troponin I 0.127 H* 07/29/18 07/29/18 08:10 09:11 WBC Neutrophils # Lymphocytes # Monocytes # APTT ABG pH ABG pCO2 ABG pO2 ABG Total CO2 ABG O2 Saturation Potassium Carbon Dioxide BUN Creatinine Glucose POC Glucose (mg/dL) 339 H 196 H Plasma Lactic Acid Nick Phosphorus Total Bilirubin AST ALT Troponin I - Diagnostic Findings Chest x-ray: image reviewed (Chest x-ray is consistent with pulmonary edema, however underlying pneumonia is not entirely ruled out but felt to be less likely.) Assessment and Plan Assessment: Impression: 1 acute hypoxic and hypercapnic respiratory failure secondary to acute pulmonary edema, secondary to systolic dysfunction and possible component of COPD, possible acute non-ST elevation myocardial infarction possible component of underlying pneumonia/community-acquired. 2 acute hypertensive emergency upon presentation, resolved. Patient presented with significantly elevated systolic blood pressure, and pulmonary edema. 3 multiple comorbidities including type 2 diabetes, hypertension, chronic obstructive pulmonary disease, nonischemic cardiomyopathy and LV dysfunction, hyperlipidemia, acute on chronic kidney injury. Possibly cardiorenal in nature. Recommendation: Continue ventilatory support, nutritional support, diuretics, GI and DVT prophylaxis, bronchodilators, empiric antibiotics, patient will be seen by cardiology, as a matter of fact I have already discussed his condition with Dr. Freire, and he ordered an echocardiogram, will compared to the echocardiogram he had last in 2016. Prognosis is guarded, we'll continue to follow closely, I will titrate his FiO2 down as tolerated, his ventilator settings were adjusted, and I will keep the patient on Lasix drip for now. We' ll continue to follow. Time with Patient: Greater than 30
--- NOTE | 2018-07-29 10:36 | CONS ---
CONSULTATION Mr. Stephanie siegel is a 52-year-old male who presented to the emergency room with symptoms of progressive dyspnea. No history could be obtained from the patient. Patient is intubated and sedated. According to the notes available, patient has been complaining of progressive dyspnea, came in quite acidotic requiring mechanical ventilation. He was he had sinus tachycardia on presentation. He was started on IV Lasix drip. He has diuresed quite well. He continues to be in sinus mechanism, on no pressors. Reviewing the records from 2015 which is the last admission available to me, the patient has a known history of nonischemic cardiomyopathy, chronic kidney disease, diabetes, hyperlipidemia, and hypertension. His echocardiogram performed in November 2015 revealed ejection fraction of 20-25 percent with global hypokinesis and mild mitral regurgitation. At that time, according to the notes available, the plan was that the patient will follow up to undergo possible ICD implantation. I do not have any records following his discharge. No other history could be obtained at this time. MEDICATION: At the time of admission included quinapril, metoprolol succinate 50 mg daily, Lasix 40 mg daily, insulin. REVIEW OF SYSTEMS: Could not be obtained. PHYSICAL EXAMINATION: He is a 52-year-old male, intubated, sedated. Blood pressure running in the low 100s with a heart rate in the 80s and 90s. HEAD: Normocephalic. Eyes sclerae anicteric. Neck good upstroke. No bruit. No jugular venous distention. Lungs with mild decrease in breath sound anteriorly, but no wheezes. HEART: Regular rate and rhythm S1, S2. No S3. No gallop appreciated. ABDOMEN: Soft. Positive bowel sounds. No organomegaly. EXTREMITIES: Trace to 1+ edema bilaterally. LAB DATA: Revealed on presentation, white blood cell of 18.3, hemoglobin of 16.2, BUN and creatinine 22 and 1.57. His plasma lactic acid was 10.3. His troponin was 0.047 with an NT proBNP of 2060. His pH was 7.05. This morning his BUN creatinine 38 and 1.98. His troponin 0.127. His white blood cells 17.7. His pH 7.37 Chest x-ray shows finding of congestive heart failure, improved compared to yesterday. His EKG revealed sinus tachycardia with a right axis deviation, nonspecific ST-T wave changes. IMPRESSION: 1. Respiratory failure with element of congestive heart failure in a patient with known history of cardiomyopathy. The elevation of troponin appears to be a type 2 myocardial infarction. I do not believe that we are dealing with a primary myocardial infarction. 2. History of nonischemic cardiomyopathy in the past. Full details of his progress since 2016 are not available to me. 3. History of hypertension. 4. Hyperlipidemia. 5. History of diabetes mellitus. 6. Chronic kidney disease. RECOMMENDATIONS: From the cardiac standpoint, we will continue the intravenous diuretics. He may be able to be weaned and extubated depending on his progress. I will obtain echocardiogram with Doppler. Start him on an oral dose of beta jamaal to prevent any rebound. Depending on his progress, further recommendations will be made. Thank you for this consult. We will follow with you. MMGEOL / IJN: [id number] /
[2018-07-29 10:38] LABS: Glucose,Whole Blood 154 mg/dL (75-99)
[2018-07-29 11:13] LABS: Glucose,Whole Blood 149 mg/dL (75-99)
[2018-07-29 12:01] LABS: Glucose,Whole Blood 152 mg/dL (75-99)
[2018-07-29 12:15] LABS: Amorphous Sediment,Urine Rare /hpf; Appearance,Urine Cloudy (Clear); Bilirubin,Urine Negative (Negative); Blood,Urine Trace (Negative); Calcium Oxalate Crystals,Urine Rare /hpf; Color,Urine Yellow; Glucose,Urine (UA) 1+ (Negative); Hyaline Casts,Urine 5 /lpf (0-2); Ketones,Urine Negative (Negative); Leukocyte Esterase,Urine Negative (Negative); Mucus,Urine Rare /hpf; Nitrite,Urine Negative (Negative); PH, Urine 5.5 (5.0-8.0); Protein,Urine 2+ (Negative); RBC,Urine 8 /hpf (0-5); Specific Gravity,Urine 1.011 (1.001-1.035); Urobilinogen,Urine <2.0 mg/dL (<2.0)
[2018-07-29] MEDS ORDERED: NOREPINEPHRINE 4 MG in SODIUM CHLORIDE 0.9% 250 ML IV SCH (13:30)
[2018-07-29 13:32] LABS: Glucose,Whole Blood 150 mg/dL (75-99)
[2018-07-29 14:30] LABS: Glucose,Whole Blood 167 mg/dL (75-99)
[2018-07-29 15:07] LABS: Glucose,Whole Blood 182 mg/dL (75-99)
[2018-07-29 16:06] LABS: Glucose,Whole Blood 145 mg/dL (75-99)
[2018-07-29] MEDS: HEPARIN SOD,PORK IN 0.45% NACL 25,000 UNIT in 0.45% NACL 1 500ML.BAG IV SCH (16:36)
[2018-07-29 17:22] LABS: Glucose,Whole Blood 129 mg/dL (75-99)
[2018-07-29 18:09] LABS: Glucose,Whole Blood 134 mg/dL (75-99)
[2018-07-29] MEDS ORDERED: VANCOMYCIN IV PER PHARMACY 1 EACH MISC MISCELLANE PRN (18:35)
[2018-07-29] MEDS ORDERED: VANCOMYCIN 1,500 MG in SODIUM CHLORIDE 0.9% 250 ML IVPB SCH (18:45)
[2018-07-29 19:15] LABS: Glucose,Whole Blood 132 mg/dL (75-99)
[2018-07-29] MEDS ORDERED: VANCOMYCIN 2,000 MG in SODIUM CHLORIDE 0.9% 500 ML 500 ML IVPB ONE (20:00)
[2018-07-29 20:11] LABS: Glucose,Whole Blood 136 mg/dL (75-99)
[2018-07-29] MEDS ORDERED: TERBUTALINE 1 MG/ML VIAL SQ ONE (20:11)
[2018-07-29] MEDS ORDERED: TERBUTALINE FOR EXTRAVASATION 1 MG/ML VIAL SQ STA (20:55)
[2018-07-29 21:08] LABS: Glucose,Whole Blood 152 mg/dL (75-99)
[2018-07-29 22:27] LABS: Glucose,Whole Blood 143 mg/dL (75-99)
[2018-07-29] MEDS: LORazepam 2 MG/ML INJ IV PRN (22:58)
[2018-07-29 23:12] LABS: Glucose,Whole Blood 136 mg/dL (75-99)
--- NOTE | 2018-07-29 23:33 | PN ---
PROGRESS NOTE DATE OF SERVICE: 07/29/2018 This 52-year-old gentleman was admitted with acute pulmonary edema and CHF secondary to accelerated hypertension and hypertensive urgency, being closely monitored. Patient is on mechanical ventilation at this time and the most recent chest x-ray which was reviewed by me showed possible pneumonia in the right lower lobe. The patient closely monitored at this time. Cardiology is also following the patient closely. No chest pain. No palpitations. Patient mechanically sedated and intubated. The patient is also hypotensive and started on Levophed. PAST MEDICAL HISTORY: Reviewed. REVIEW OF SYSTEMS: Could not be taken. CURRENT MEDICATIONS: 1. Rocephin 1 g IV daily. 2. Lasix drip 10 mg/hour. 3. Heparin 5 subcu b.i.d. 4. Apresoline. 5. Ativan. 6. Lopressor. 7. Narcan. 8. Nitroglycerin. 9. Protonix. 10.Propofol. PHYSICAL EXAM: Patient is mechanically sedated, blood pressure pulse 77, blood pressure 79/52, respiration 18, temp is normal, pulse ox noted and vent settings also noted at 600, 70 and 8. HEENT: Conjunctivae normal. Oral mucosa. NECK: No jugular venous distention. No lymph node enlargement. CARDIOVASCULAR: S1, S2. RESPIRATORY: Diminished breath sounds at the bases. A few scattered rhonchi and crackles. ABDOMEN: Soft, nontender. LEGS: No swelling. NERVOUS SYSTEM: Patient mechanically sedated. LAB: Accu-Cheks are 160 and 180, WBC 17.7, hemoglobin 15.5, and pH of 7.37, creatinine is 1.98, is 3 and troponin 0.127. ASSESSMENT: 1. Acute hypoxic respiratory failure with CHF acute exacerbation as well as acute pulmonary edema on mechanical ventilation. 2. Increased WBC. 3. Possible right lower lobe pneumonia with possible sepsis. 4. Severe metabolic acidosis. 5. Change in mental status, metabolic encephalopathy, multifactorial. 6.lactic acid. 7. Troponin 0.047, indeterminate. 8. History of CHF. 9. Diabetes type 2. 10.Hypertension. 11.Hyperlipidemia. 12.History of nicotine dependence. RECOMMENDATIONS: Continue current management. Continue symptomatic treatment. Continue IV antibiotics. Continue with pressor support and mechanical ventilation. Continue the rest of medications. Follow closely with Dr. Mcclain and Cardiology. Guarded prognosis because of multiple complex medical issues. Further recommendations to follow. MMODL / IJN: [id number] / DUANE
[2018-07-30 00:16] LABS: Glucose,Whole Blood 140 mg/dL (75-99)
[2018-07-30] MEDS: PROPOFOL 1,000 MG in EMPTY BAG 1 BAG IV SCH ×3 (00:27→05:15)
[2018-07-30 01:18] LABS: Glucose,Whole Blood 151 mg/dL (75-99)
[2018-07-30] MEDS: HEPARIN SODIUM,PORCINE 5,000 UNIT/ML 1 ML VIAL IV PRN (01:52)
[2018-07-30 02:22] LABS: Glucose,Whole Blood 147 mg/dL (75-99)
[2018-07-30 03:20] LABS: Glucose,Whole Blood 159 mg/dL (75-99)
[2018-07-30] MEDS: LORazepam 2 MG/ML INJ IV PRN (03:30)
[2018-07-30 04:22] LABS: Glucose,Whole Blood 153 mg/dL (75-99)
[2018-07-30 04:44] LABS: Basophils # (A) 0.1 k/uL (0-0.2); Basophils % (A) 0 %; Eosinophils # (A) 0.1 k/uL (0-0.7); Eosinophils % (A) 1 %; HCT 44.4 % (39.0-53.0); HGB 13.8 gm/dL (13.0-17.5); Lymphocytes # (A) 1.8 k/uL (1.0-4.8); Lymphocytes % (A) 9 %; MCH 27.9 pg (25.0-35.0); MCHC 31.1 g/dL (31.0-37.0); MCV 89.8 fL (80.0-100.0); Mean Platelet Volume 6.6; Monocytes # (A) 2.4 k/uL (0-1.0); Monocytes % (A) 12 %; Neutrophils # (A) 15.7 k/uL (1.3-7.7); Neutrophils % (A) 77 %; Platelet Count 255 k/uL (150-450); RBC 4.94 m/uL (4.30-5.90); RDW 13.8 % (11.5-15.5); WBC 20.5 k/uL (3.8-10.6)
[2018-07-30 04:54] LABS: Calcium 8.5 mg/dL (8.4-10.2); Phosphorus 7.2 mg/dL (2.5-4.5); Potassium 3.8 mmol/L (3.5-5.1)
[2018-07-30 05:14] LABS: Glucose,Whole Blood 144 mg/dL (75-99)
[2018-07-30] MEDS: HEPARIN SOD,PORK IN 0.45% NACL 25,000 UNIT in 0.45% NACL 1 500ML.BAG IV SCH ×2 (05:14→23:50)
[2018-07-30 06:17] LABS: Glucose,Whole Blood 148 mg/dL (75-99)
[2018-07-30 07:16] LABS: Glucose,Whole Blood 159 mg/dL (75-99)
[2018-07-30 07:32] LABS: ABG Base Excess -1.9 mmol/L; ABG HCO3 24 mmol/L (21-25); ABG Oxygen Saturation 96.7 % (94-97); ABG PCO2 42 mmHg (35-45); ABG PH 7.36 (7.35-7.45); ABG PO2 115 mmHg (83-108); ABG TCO2 25 mmol/L (19-24)
[2018-07-30 08:06] LABS: Glucose,Whole Blood 162 mg/dL (75-99)
--- NOTE | 2018-07-30 08:08 | XR ---
EXAMINATION TYPE: XR chest 1V DATE OF EXAM: 07/30/2018 COMPARISON: 07/29/2018 HISTORY: Ventilatory dependent respiratory failure. TECHNIQUE: Single frontal view of the chest is obtained. FINDINGS: There is improved aeration of the right lung base. Persistent retrocardiac opacity and avelina nting of the bilateral costophrenic angles are seen. Minimal pulmonary vascular congestion remains. E nteric and endotracheal tubes are unchanged in the interim. Osseous structures appear intact. No siza ble pneumothorax. Cardiomegaly remains. IMPRESSION: Minimal improved pulmonary vascular congestion and improved aeration of right lung base with persistent trace pleural effusions and bibasilar opacities, likely atelectasis.
[2018-07-30] MEDS: CHLORHEXIDINE GLUCONATE 15 ML CUP MUCOUS MEM SCH ×2 (08:27→19:52)
[2018-07-30] MEDS: PANTOPRAZOLE 40 MG/10 ML VIAL IV SCH (08:27)
[2018-07-30] MEDS: METOPROLOL TARTRATE 25 MG TAB PO SCH ×2 (08:27→19:53)
[2018-07-30 09:07] LABS: Glucose,Whole Blood 161 mg/dL (75-99)
[2018-07-30 10:07] LABS: Hemoglobin A1C 10.2 % (4.0-6.0)
[2018-07-30 10:17] LABS: Glucose,Whole Blood 167 mg/dL (75-99)
[2018-07-30 11:04] LABS: ABG Base Excess 1.3 mmol/L; ABG HCO3 25 mmol/L (21-25); ABG PCO2 37 mmHg (35-45); ABG PH 7.45 (7.35-7.45); ABG PO2 168 mmHg (83-108); ABG TCO2 27 mmol/L (19-24)
--- NOTE | 2018-07-30 12:01 | PN ---
PROGRESS NOTE Mr. Brown is a 52-year-old male with known history of severe nonischemic cardiomyopathy who presented with respiratory failure requiring mechanical ventilation. He remains intubated and sedated. Hemodynamically in sinus mechanism. His ejection fraction in the past was in the 20% to 25%. He has no evidence of malignant tachyarrhythmia. He continues to be at this time on heparin, metoprolol tartrate 25 mg twice a day, and antibiotics. PHYSICAL EXAMINATION: Blood pressure running in the low 100s with the heart rate in the 90s. LUNGS: Clear anteriorly. HEART: Regular rate and rhythm. S1, S2. No S3. No rub appreciated. ABDOMEN: Soft. Positive bowel sounds. No organomegaly. EXTREMITIES: No edema. His urine output has been good. IMPRESSION: 1. Respiratory failure related to congestive heart failure in a setting of severe nonischemic cardiomyopathy. 2. Prior history of nonischemic cardiomyopathy. Patient in the past had recommendation for ICD, but it appears that he has not followed. 3. History of hypertension. 4. Hyperlipidemia. 5. Diabetes mellitus. 6. Chronic kidney disease. RECOMMENDATION: We will obtain echocardiogram today. Depending on those findings, further adjustment will be made. I am hopeful that we can wean him and extubate him today. We will follow his renal function closely. Depending on his progress, further recommendation will be made. MMODL / IJN: [id number] /
--- NOTE | 2018-07-30 12:16 | P.PN ---
Subjective Progress Note Date: 07/30/18 Principal diagnosis: Acute hypoxic respiratory failure secondary to pulmonary edema. This is a 52-year-old white male with history of multiple medical problems including chronic LV dysfunction and ejection fraction of 20-25% based on an echocardiogram done in 2016. Patient used to see Dr. Freire for his nonischemic cardiomyopathy, however he has not been seen by cardiology for quite some time. Patient is also known to have history of congestive heart failure, type 2 diabetes, hypertension, he was brought by EMS with complaints of increased shortness of breath, and apparently upon arrival patient was noted to be in severe respiratory distress, unresponsive, pulse oximetry was in the 80s, patient had to be intubated immediately upon arrival. Chest x-ray was mostly consistent with pulmonary edema. Patient was placed on mechanical ventilation, presently on the following vent settings. Assist control rate of 18, tidal volume of 600 FiO2 of 80%, and PEEP of 5. Upon arrival to the ER patient was noted to have significantly elevated blood pressure over 200 systolic, and he was treated with nitroglycerin. Today he is off nitroglycerin , he is on Lasix drip which I have ordered last night, he is also on propofol at 50 mcg/kg/m, his peak airway pressure is 26 and his plateau pressures are in the range of high teens. Patient is hemodynamically stable today, not requiring any nitroglycerin. He is still on mechanical ventilation, and he is still on Lasix drip. Patient is sedated, and he seems to be responding well to Lasix drip. Labs on presentation showed leukocytosis with WBC count of 18.3. Hemoglobin 16.2. His initial ABG showed a pO2 of 256 pCO2 of 77 pH of 7.05. His BUN was 22 creatinine 1.57 blood sugar 391. Lactic acid was 10.3, follow- up lactic acid this morning is 3.0. Liver transaminases were slightly elevated. Troponin on presentation was 0.047 follow-up troponin this morning is 0.127 and proBNP level is just over 2000. Drug screen was negative. Influenza A and influenza B screening negative. Patient was reevaluated today on 07/30/2018, remains on mechanical ventilation, however his chest x-ray has showed a significant improvement over the last 24 hours. His ventilator settings are tidal volume 600 assist control rate 18 FiO2 50% and PEEP is 5. Patient was on propofol which I have discontinued, reviewed his urine output, patient is thin and negative balance, he has been diuresing well on his own, he is not requiring any pressors, hence I discontinued propofol, and recommended a weaning trial using a pressure support of 8 and CPAP. Repeat ABG on that mode of mechanical ventilation showed a pO2 of 168 pCO2 of 37 pH of 7.45. And this was again on a 50% FiO2 and PEEP of 5. Then proceeded to extubating the patient. WBC count remains elevated at 20.5. Hemoglobin is 13.8. PTT is 46.9/therapeutic. Renal profile is a bit worse, BUN is up to 51 and creatinine is 2.95. Troponin was not done today, however serial troponins yesterday and the day before have shown an increase of troponin consistent with non-ST elevation myocardial infarction. 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 The results of his repeat echocardiogram on this admission are pending. However his previous echocardiogram in 2016, showed severe LV dysfunction ejection fraction of 20-25%. Objective - Vital Signs Vital signs: Vital Signs Temp 98.7 F 07/30/18 08:00 Pulse 114 H 07/30/18 12:00 Resp 17 07/30/18 12:00 BP 133/78 07/30/18 12:00 Pulse Ox 92 L 07/30/18 12:00 Intake & Output 07/29/18 07/30/18 07/30/18 18:59 06:59 18:59 Intake Total 958.338 3743.919 187.810 Output Total 1060 905 325 Balance -105.719 891.919 -137.190 Weight 128.3 kg 135.3 kg Intake: IV 120 120 80 0.9 KVO 110 120 80 Furosemide 250 mg In 10 Sodium Chloride 0.9% 225 ml @ 10 MG/HR 10 mls/hr IVP .Q24H [facility] Rx#: [id number] Intake, IV Titration 497.341 9768.919 107.810 Amount Heparin Sod,Pork in 0.45% 359.437 500.000 NaCl 25,000 unit In 0.45 % NaCl 1 500ml.bag @ 7. 121 UNITS/KG/HR 20 mls/hr IV .Q24H [facility] Rx#: [id number] Insulin Regular 100 unit 32.812 10.513 7.810 In Sodium Chloride 0.9% 100 ml @ Per Protocol IV .Q0M [facility] Rx#:[id number] Norepinephrine 4 mg In 25.50 94.75 Sodium Chloride 0.9% 250 ml @ Titrate IV .Q0M [facility] Rx#:[id number] Propofol 1,000 mg In 416.532 470.656 100 Empty Bag 1 bag @ Titrate IV .Q0M [facility] Rx#: [id number] Vancomycin 2,000 mg In 501 Sodium Chloride 0.9% 500 ml 500 ml @ 167 mls/hr IVPB Q24H [facility] Rx#: [id number] cefTRIAXone 1,000 mg In 100 Sodium Chloride 0.9% 50 ml @ 100 mls/hr IVPB Q24H [facility] Rx#:[id number] Output: Urine 1060 905 325 Other: Voiding Method Indwelling Catheter Indwelling Catheter Indwelling Catheter - Exam Physical Exam: Revealed a 52-year-old white male, on mechanical ventilation, off propofol, following simple instructions, in no distress. Head: Atraumatic, normocephalic. Endotracheal tube and orogastric tube are intact. HEENT:[Neck is supple.] [No neck masses.] [No thyromegaly.] [No JVD.] PERRLA, EOMI, no icterus. Moist mucous membranes noted. Chest: [Crackles and rhonchi noted bilaterally. No wheezes. Symmetrical chest expansion. No chest wall tenderness. Cardiac Exam: [Normal S1 and S2, no S3 gallop, no murmur.] Abdomen: [Obese, Soft, nontender, no megaly, no rebound, no guarding, normal bowel sounds.] Extremities: [Trace of bipedal edema No clubbing, no cyanosis.] Neurological Exam: Alert oriented 3, no gross focal neurologic deficits. Psychiatric: Normal mood, affect and mental status examination. Skin: No rashes - Labs CBC & Chem 7: 07/30/18 04:11 07/30/18 04:11 Labs: Abnormal Lab Results - Last 24 Hours (Table) 07/29/18 07/29/18 07/29/18 Range/Units 04:10 04:20 13:20 WBC (3.8-10.6) k/uL Neutrophils # (1.3-7.7) k/uL Monocytes # (0-1.0) k/uL APTT (22.0-30.0) sec ABG pO2 (83-108) mmHg ABG Total CO2 (19-24) mmol/L ABG O2 Saturation (94-97) % Chloride (98-107) mmol/L Carbon Dioxide (22-30) mmol/L BUN (9-20) mg/dL Creatinine (0.66-1.25) mg/dL Glucose (74-99) mg/dL POC Glucose (mg/dL) 150 H (75-99) mg/dL Hemoglobin A1c 10.2 H (4.0-6.0) % Phosphorus (2.5-4.5) mg/dL Urine Protein 2+ H (Negative) Urine Glucose (UA) 1+ H (Negative) Urine Blood Trace H (Negative) Urine RBC 8 H (0-5) /hpf Urine WBC 14 H (0-5) /hpf Calcium Oxalate Crystal Rare H (None) /hpf Amorphous Sediment Rare H (None) /hpf Hyaline Casts 5 H (0-2) /lpf Urine Mucus Rare H (None) /hpf 07/29/18 07/29/18 07/29/18 Range/Units 14:18 14:55 15:54 WBC (3.8-10.6) k/uL Neutrophils # (1.3-7.7) k/uL Monocytes # (0-1.0) k/uL APTT (22.0-30.0) sec ABG pO2 (83-108) mmHg ABG Total CO2 (19-24) mmol/L ABG O2 Saturation (94-97) % Chloride (98-107) mmol/L Carbon Dioxide (22-30) mmol/L BUN (9-20) mg/dL Creatinine (0.66-1.25) mg/dL Glucose (74-99) mg/dL POC Glucose (mg/dL) 167 H 182 H 145 H (75-99) mg/dL Hemoglobin A1c (4.0-6.0) % Phosphorus (2.5-4.5) mg/dL Urine Protein (Negative) Urine Glucose (UA) (Negative) Urine Blood (Negative) Urine RBC (0-5) /hpf Urine WBC (0-5) /hpf Calcium Oxalate Crystal (None) /hpf Amorphous Sediment (None) /hpf Hyaline Casts (0-2) /lpf Urine Mucus (None) /hpf 07/29/18 07/29/18 07/29/18 Range/Units 17:11 17:58 19:03 WBC (3.8-10.6) k/uL Neutrophils # (1.3-7.7) k/uL Monocytes # (0-1.0) k/uL APTT (22.0-30.0) sec ABG pO2 (83-108) mmHg ABG Total CO2 (19-24) mmol/L ABG O2 Saturation (94-97) % Chloride (98-107) mmol/L Carbon Dioxide (22-30) mmol/L BUN (9-20) mg/dL Creatinine (0.66-1.25) mg/dL Glucose (74-99) mg/dL POC Glucose (mg/dL) 129 H 134 H 132 H (75-99) mg/dL Hemoglobin A1c (4.0-6.0) % Phosphorus (2.5-4.5) mg/dL Urine Protein (Negative) Urine Glucose (UA) (Negative) Urine Blood (Negative) Urine RBC (0-5) /hpf Urine WBC (0-5) /hpf Calcium Oxalate Crystal (None) /hpf Amorphous Sediment (None) /hpf Hyaline Casts (0-2) /lpf Urine Mucus (None) /hpf 07/29/18 07/29/18 07/29/18 Range/Units 20:00 20:56 22:16 WBC (3.8-10.6) k/uL Neutrophils # (1.3-7.7) k/uL Monocytes # (0-1.0) k/uL APTT (22.0-30.0) sec ABG pO2 (83-108) mmHg ABG Total CO2 (19-24) mmol/L ABG O2 Saturation (94-97) % Chloride (98-107) mmol/L Carbon Dioxide (22-30) mmol/L BUN (9-20) mg/dL Creatinine (0.66-1.25) mg/dL Glucose (74-99) mg/dL POC Glucose (mg/dL) 136 H 152 H 143 H (75-99) mg/dL Hemoglobin A1c (4.0-6.0) % Phosphorus (2.5-4.5) mg/dL Urine Protein (Negative) Urine Glucose (UA) (Negative) Urine Blood (Negative) Urine RBC (0-5) /hpf Urine WBC (0-5) /hpf Calcium Oxalate Crystal (None) /hpf Amorphous Sediment (None) /hpf Hyaline Casts (0-2) /lpf Urine Mucus (None) /hpf 07/29/18 07/30/18 07/30/18 Range/Units 23:01 00:05 01:06 WBC (3.8-10.6) k/uL Neutrophils # (1.3-7.7) k/uL Monocytes # (0-1.0) k/uL APTT 41.5 H (22.0-30.0) sec ABG pO2 (83-108) mmHg ABG Total CO2 (19-24) mmol/L ABG O2 Saturation (94-97) % Chloride (98-107) mmol/L Carbon Dioxide (22-30) mmol/L BUN (9-20) mg/dL Creatinine (0.66-1.25) mg/dL Glucose (74-99) mg/dL POC Glucose (mg/dL) 136 H 140 H (75-99) mg/dL Hemoglobin A1c (4.0-6.0) % Phosphorus (2.5-4.5) mg/dL Urine Protein (Negative) Urine Glucose (UA) (Negative) Urine Blood (Negative) Urine RBC (0-5) /hpf Urine WBC (0-5) /hpf Calcium Oxalate Crystal (None) /hpf Amorphous Sediment (None) /hpf Hyaline Casts (0-2) /lpf Urine Mucus (None) /hpf 07/30/18 07/30/18 07/30/18 Range/Units 01:07 02:10 03:08 WBC (3.8-10.6) k/uL Neutrophils # (1.3-7.7) k/uL Monocytes # (0-1.0) k/uL APTT (22.0-30.0) sec ABG pO2 (83-108) mmHg ABG Total CO2 (19-24) mmol/L ABG O2 Saturation (94-97) % Chloride (98-107) mmol/L Carbon Dioxide (22-30) mmol/L BUN (9-20) mg/dL Creatinine (0.66-1.25) mg/dL Glucose (74-99) mg/dL POC Glucose (mg/dL) 151 H 147 H 159 H (75-99) mg/dL Hemoglobin A1c (4.0-6.0) % Phosphorus (2.5-4.5) mg/dL Urine Protein (Negative) Urine Glucose (UA) (Negative) Urine Blood (Negative) Urine RBC (0-5) /hpf Urine WBC (0-5) /hpf Calcium Oxalate Crystal (None) /hpf Amorphous Sediment (None) /hpf Hyaline Casts (0-2) /lpf Urine Mucus (None) /hpf 07/30/18 07/30/18 07/30/18 Range/Units 04:10 04:11 04:11 WBC 20.5 H (3.8-10.6) k/uL Neutrophils # 15.7 H (1.3-7.7) k/uL Monocytes # 2.4 H (0-1.0) k/uL APTT (22.0-30.0) sec ABG pO2 (83-108) mmHg ABG Total CO2 (19-24) mmol/L ABG O2 Saturation (94-97) % Chloride 108 H (98-107) mmol/L Carbon Dioxide 20 L (22-30) mmol/L BUN 51 H (9-20) mg/dL Creatinine 2.95 H (0.66-1.25) mg/dL Glucose 147 H (74-99) mg/dL POC Glucose (mg/dL) 153 H (75-99) mg/dL Hemoglobin A1c (4.0-6.0) % Phosphorus 7.2 H (2.5-4.5) mg/dL Urine Protein (Negative) Urine Glucose (UA) (Negative) Urine Blood (Negative) Urine RBC (0-5) /hpf Urine WBC (0-5) /hpf Calcium Oxalate Crystal (None) /hpf Amorphous Sediment (None) /hpf Hyaline Casts (0-2) /lpf Urine Mucus (None) /hpf 07/30/18 07/30/18 07/30/18 Range/Units 05:03 06:06 07:04 WBC (3.8-10.6) k/uL Neutrophils # (1.3-7.7) k/uL Monocytes # (0-1.0) k/uL APTT (22.0-30.0) sec ABG pO2 (83-108) mmHg ABG Total CO2 (19-24) mmol/L ABG O2 Saturation (94-97) % Chloride (98-107) mmol/L Carbon Dioxide (22-30) mmol/L BUN (9-20) mg/dL Creatinine (0.66-1.25) mg/dL Glucose (74-99) mg/dL POC Glucose (mg/dL) 144 H 148 H 159 H (75-99) mg/dL Hemoglobin A1c (4.0-6.0) % Phosphorus (2.5-4.5) mg/dL Urine Protein (Negative) Urine Glucose (UA) (Negative) Urine Blood (Negative) Urine RBC (0-5) /hpf Urine WBC (0-5) /hpf Calcium Oxalate Crystal (None) /hpf Amorphous Sediment (None) /hpf Hyaline Casts (0-2) /lpf Urine Mucus (None) /hpf 07/30/18 07/30/18 07/30/18 Range/Units 07:17 07:28 07:55 WBC (3.8-10.6) k/uL Neutrophils # (1.3-7.7) k/uL Monocytes # (0-1.0) k/uL APTT 46.9 H (22.0-30.0) sec ABG pO2 115 H (83-108) mmHg ABG Total CO2 25 H (19-24) mmol/L ABG O2 Saturation (94-97) % Chloride (98-107) mmol/L Carbon Dioxide (22-30) mmol/L BUN (9-20) mg/dL Creatinine (0.66-1.25) mg/dL Glucose (74-99) mg/dL POC Glucose (mg/dL) 162 H (75-99) mg/dL Hemoglobin A1c (4.0-6.0) % Phosphorus (2.5-4.5) mg/dL Urine Protein (Negative) Urine Glucose (UA) (Negative) Urine Blood (Negative) Urine RBC (0-5) /hpf Urine WBC (0-5) /hpf Calcium Oxalate Crystal (None) /hpf Amorphous Sediment (None) /hpf Hyaline Casts (0-2) /lpf Urine Mucus (None) /hpf 07/30/18 07/30/18 07/30/18 Range/Units 08:55 10:05 10:56 WBC (3.8-10.6) k/uL Neutrophils # (1.3-7.7) k/uL Monocytes # (0-1.0) k/uL APTT (22.0-30.0) sec ABG pO2 168 H (83-108) mmHg ABG Total CO2 27 H (19-24) mmol/L ABG O2 Saturation 98.0 H (94-97) % Chloride (98-107) mmol/L Carbon Dioxide (22-30) mmol/L BUN (9-20) mg/dL Creatinine (0.66-1.25) mg/dL Glucose (74-99) mg/dL POC Glucose (mg/dL) 161 H 167 H (75-99) mg/dL Hemoglobin A1c (4.0-6.0) % Phosphorus (2.5-4.5) mg/dL Urine Protein (Negative) Urine Glucose (UA) (Negative) Urine Blood (Negative) Urine RBC (0-5) /hpf Urine WBC (0-5) /hpf Calcium Oxalate Crystal (None) /hpf Amorphous Sediment (None) /hpf Hyaline Casts (0-2) /lpf Urine Mucus (None) /hpf Microbiology - Last 24 Hours (Table) 07/28/18 20:54 Blood Culture Gram Stain - Preliminary Blood Blood Culture - Preliminary Coagulase Negative Staph 07/28/18 20:54 Blood Culture - Final Blood 07/29/18 04:20 Urine Culture - Preliminary Urine,Catheterized 07/28/18 21:50 Gram Stain - Preliminary Sputum Sputum Culture - Preliminary Assessment and Plan Assessment: Impression: 1 acute hypoxic and hypercapnic respiratory failure secondary to acute pulmonary edema, secondary to systolic dysfunction and possible component of COPD, possible acute non-ST elevation myocardial infarction possible component of underlying pneumonia/community-acquired. However considering the improvement on the chest x-ray, pneumonia is felt to be less likely, and we are mostly dealing with acute respiratory failure secondary to pulmonary edema/ systolic congestive heart failure and acute non-ST elevation myocardial infarction. 2 acute hypertensive emergency upon presentation, resolved. Patient presented with significantly elevated systolic blood pressure, and pulmonary edema. 3 multiple comorbidities including type 2 diabetes, hypertension, chronic obstructive pulmonary disease, nonischemic cardiomyopathy and LV dysfunction, hyperlipidemia, acute on chronic kidney injury. Possibly cardiorenal in nature. Recommendation: While I was at bedside, and after reviewing the chest x-ray, and reviewing all the labs, reviewing his gases, patient was switched to pressure support and CPAP mode of mechanical ventilation, and shortly after proceeded to extubating the patient after reviewing his repeat ABG on pressure support of 8 and CPAP. We'll continue diuretics, continue cardiac meds, bronchodilators, and we will keep the patient in the ICU as he remains critically ill. Critical care time is 34 minutes. Time with Patient: Greater than 30
[2018-07-30 12:24] LABS: Glucose,Whole Blood 127 mg/dL (75-99)
[2018-07-30] MEDS: FUROSEMIDE 10 MG/ML 4 ML VIAL IV SCH ×2 (13:08→19:53)
[2018-07-30 13:14] LABS: Glucose,Whole Blood 130 mg/dL (75-99)
[2018-07-30 15:28] LABS: Glucose,Whole Blood 145 mg/dL (75-99)
--- NOTE | 2018-07-30 16:50 | ECHOF ---
Referral Reason:chf MEASUREMENTS -------- HEIGHT: 188.0 cm WEIGHT: 135.2 kg BP: 94/59 RVIDd: 3.3 cm (< 3.3) IVSd: 1.5 cm (0.6 - 1.1) LVIDd: 7.1 cm (3.9 - 5.3) LVPWd: 1.6 cm (0.6 - 1.1) IVSs: 2.1 cm LVIDs: 5.9 cm LVPWs: 1.9 cm LAESV Index (A-L): 43.62 ml/m Ao Diam: 3.3 cm (2.0 - 3.7) AV Cusp: 1.5 cm (1.5 - 2.6) LA Diam: 4.9 cm (2.7 - 3.8) EPSS: 1.1 cm MV E Rom: 1.54 m/s MV DecT: 105 ms MV A Rom: 0.01 m/s MV E/A Ratio: 254.73 AV maxP.44 mmHg AV meanP.05 mmHg RAP: 15.00 mmHg RVSP: 30.53 mmHg MV EF SLOPE: 74.44 mm/s (70 - 150) MV EXCURSION: 2.23 cm (> 18.000) FINDINGS -------- Sinus rhythm. This was a technically adequate study. The left ventricle is severely dilated. There is moderate concentric left ventricular hypertrophy. There is severe global hypokinesis of LV . Overall left ventricular systolic function is severely impaired with, an EF between 20 - 25 %. The right ventricle is normal in size and function. LA is severely dilated >40 ml/m2 RA appears enlarged. There is mild aortic valve sclerosis. There is no evidence of aortic regurgitation. Mild mitral annular calcification present. Severe mitral regurgitation is present. [id number] tricuspid regurgitation present. Right ventricular systolic pressure is normal at < 35 mmHg. There is no evidence of pulmonary hypertension. Trace/mild (physiologic) pulmonic regurgitation. The aortic root size is normal. The inferior vena cava is dilated with poor inspiratory collapse which is consistent with estimated r ight atrial pressure of 20 mmHg. There is a small, generalized pericardial effusion present. CONCLUSIONS -------- 1. Sinus rhythm. 2. This was a technically adequate study. 3. The left ventricle is severely dilated. 4. There is moderate concentric left ventricular hypertrophy. 5. There is severe global hypokinesis of LV . 6. Overall left ventricular systolic function is severely impaired with, an EF between 20 - 25 %. 7. LA is severely dilated >40 ml/m2 8. RA appears enlarged. 9. There is mild aortic valve sclerosis. 10. Mild mitral annular calcification present. 11. Severe mitral regurgitation is present. 12. Rllc-yf-jcbgayhl tricuspid regurgitation present. 13. Right ventricular systolic pressure is normal at < 35 mmHg. 14. Trace/mild (physiologic) pulmonic regurgitation. 15. The aortic root size is normal. 16. The inferior vena cava is dilated with poor inspiratory collapse which is consistent with estimat ed right atrial pressure of 20 mmHg. 17. There is a small, generalized pericardial effusion present. CHARGE POSTER: Catarino Husain RDCS
[2018-07-30 17:30] LABS: Glucose,Whole Blood 224 mg/dL (75-99)
[2018-07-30 18:21] LABS: Glucose,Whole Blood 326 mg/dL (75-99)
[2018-07-30 19:40] LABS: Glucose,Whole Blood 221 mg/dL (75-99)
[2018-07-30] MEDS ORDERED: VANCOMYCIN 2,000 MG in SODIUM CHLORIDE 0.9% 500 ML 500 ML IVPB SCH (20:00)
[2018-07-30] MEDS: INSULIN REGULAR 100 UNIT in SODIUM CHLORIDE 0.9% 100 ML IV SCH (20:02)
[2018-07-30 20:18] LABS: Glucose,Whole Blood 177 mg/dL (75-99)
--- NOTE | 2018-07-30 20:46 | PN ---
PROGRESS NOTE DATE OF SERVICE: 07/30/2018 This 52-year-old gentleman, admitted with acute hypoxic respiratory failure, CHF, acute exacerbation, pulmonary edema, hypertensive urgency, also had possible right lower lobe pneumonia. The patient was extubated today. Most recent chest x-ray, personally evaluated by me, showed significant improvement. A 2D echo with Doppler evaluated by Cardiology showed ejection fraction about 20% to 25%. LA was severely dilated. Mild to moderate tricuspid regurgitation was seen and severe mitral regurgitation was also noted. Cardiology and Pulmonology are following the patient closely. Past medical history reviewed. REVIEW OF SYSTEMS: CARDIOVASCULAR SYSTEM: No angina, palpitations. RESPIRATORY SYSTEM: As mentioned earlier. GI: As mentioned earlier. : No dysuria or retention. NERVOUS SYSTEM: No numbness, weakness.. CURRENT MEDICATIONS: Reviewed. They include: 1. Rocephin 1 gram daily. 2. Peridex. 3. Lasix 40 mg IV b.i.d. 4. Heparin. 5. Ativan. 6. Lopressor. 7. Narcan. 8. Protonix. PHYSICAL EXAMINATION: Patient is alert and oriented x3. Pulse is 116, blood pressure 130/70, respiration 19, temperature normal, pulse ox 92% on room air. HEENT: Conjunctivae normal. Oral mucosa moist. NECK: No jugular venous distention. No carotid bruit. No lymph node enlargement. CARDIOVASCULAR SYSTEM: S1, S2 muffled. RESPIRATORY SYSTEM: Breath sounds diminished at the bases. A few scattered rhonchi and crackles. ABDOMEN: Soft, non-tender. No mass palpable. LEGS: No edema. No swelling. NERVOUS SYSTEM: Higher functions as mentioned earlier. Moves all 4 limbs. No focal motor or sensory deficit. LYMPHATICS: No lymph node palpable in neck, axillae or groin. SKIN: No ulcer, rash, bleeding. LAB INVESTIGATIONS AT THIS TIME: WBC 20.5 and ABGs are noted. Glucose is 326 and creatinine is 2.95. ASSESSMENT: 1. Acute hypoxic respiratory failure with congestive heart failure, acute exacerbation, with acute on chronic systolic dysfunction. 2. Possible cardiorenal syndrome. 3. Acute on chronic renal failure, multifactorial, possibly prerenal acute tubular necrosis. 4. Ejection fraction 20% to 25% with nonischemic cardiomyopathy. 5. Increased white count. 6. Possible right lower lobe pneumonia with possible sepsis, present on admission. 7. Severe metabolic acidosis with change in mental status and metabolic encephalopathy, multifactorial. 8. Increased lactic acid. 9. Troponin 0.047, indeterminate. 10.History of congestive heart failure. 11.Diabetes mellitus, type 2. 12.Hypertension. 13.Hyperlipidemia. 14.History of nicotine dependence. RECOMMENDATIONS AND DISCUSSION: In this 52-year-old gentleman who presented with multiple complex medical issues, we will monitor the patient closely, continue the current medications, continue symptomatic treatment. Otherwise at this time he patient is also. I would also recommend continuing to follow with Cardiology, Pulmonology, Nephrology. Otherwise, continue to monitor. Cut down the diuretics. Continue with empiric antibiotics. Apparently the patient has been advised AICD previously per Dr. Freire's notes. We will continue to monitor. Prognosis guarded because of multiple complex medical issues. Further recommendations to follow. MMGEOL / ISISN: [id number] /
[2018-07-30 21:21] LABS: Glucose,Whole Blood 173 mg/dL (75-99)
[2018-07-30 22:13] LABS: Glucose,Whole Blood 120 mg/dL (75-99)
--- NOTE | 2018-07-30 22:46 | CONS ---
CONSULTATION REASON FOR CONSULT: Renal failure. HISTORY OF PRESENT ILLNESS: Patient is a 52-year-old male with a history of severe cardiomyopathy, who was admitted to the hospital with shortness of breath and acute on top of chronic systolic heart failure. His ejection fraction has been 20 to 25% with global hypokinesis. The patient was initially maintained on Lasix drip. She has been diuresed and serum creatinine was 2.95 mg/dL today. Previous creatinine was 1.57 on initial admission and has increased to 2.95 now. Prior to this admission creatinine was 1.1 and 1.2 mg/dL in April of 2018, as well as May of 2017. The patient was intubated and was on the ventilator. He was extubated this morning. Blood pressure has not been significantly low. The patient is not maintained on any nephrotoxic medications. PAST MEDICAL HISTORY: Severe cardiomyopathy, hypertension, hyperlipidemia, type 2 diabetes, CHF, systolic. SOCIAL HISTORY: Positive for smoking. No history of drug abuse or alcohol abuse. MEDICATIONS: Prior to admission included albuterol inhaler, Lasix, Toprol, insulin, quinapril. ALLERGIES: NKDA. REVIEW OF SYSTEMS: As per HPI. Other systems negative. PHYSICAL EXAMINATION: Patient is comfortable, awake. He is alert and oriented x3, not in any acute distress. Blood pressure was 131/78, heart rate 108 per minute. Patient is afebrile. Examination of the heart S1, S2. Examination of the lungs bilateral breath sounds are heard. Decreased breath sounds at bases. Abdomen is soft, nontender. Examination lower extremities shows no significant edema. RADIO MAINTAINER exam is grossly intact. LAB: Shows this morning, hemoglobin 13.8, sodium 138, potassium 3.8, BUN 51, serum creatinine 2.95, phosphorus 7.2, magnesium 2.0, calcium 8.5. ASSESSMENT: 1. Acute kidney injury mainly cardiorenal and associated with recent diuresis. Lasix drip has been discontinued. The patient is maintained on IV Lasix which we can switch to p.o. diuretics tomorrow. There are no nephrotoxic agents on board and patient has had good urine output. 2. Chronic kidney disease, most likely secondary to diabetic nephropathy. The patient does have 2+ protein on the UA and his previous creatinine was 1.2-1.1 mg/dL NKF stage III. 3. Vent dependent respiratory failure secondary to CHF exacerbation and pulmonary edema, currently resolved. The patient has been extubated. PLAN: Continue current dose of Lasix. Switch to p.o. diuretics in a.m. The patient will need followup as outpatient for chronic kidney disease. He should also have an ultrasound of the kidneys done. A previous ultrasound in 2017 was unremarkable. Therefore, we do not need to do it on this admission. Thank you for this consultation. We will continue to follow the patient with you during his hospitalization. NOE / GUILLERMINA: [id number] /
[2018-07-30 23:18] LABS: Glucose,Whole Blood 154 mg/dL (75-99)
[2018-07-31 00:11] LABS: Glucose,Whole Blood 182 mg/dL (75-99)
[2018-07-31] MEDS: hydrALAZINE HCL 20 MG/ML 1 ML VIAL IVP PRN ×2 (01:03→05:03)
[2018-07-31 01:18] LABS: Glucose,Whole Blood 162 mg/dL (75-99)
[2018-07-31 02:27] LABS: Glucose,Whole Blood 171 mg/dL (75-99)
[2018-07-31 03:15] LABS: Glucose,Whole Blood 143 mg/dL (75-99)
[2018-07-31 04:15] LABS: Glucose,Whole Blood 124 mg/dL (75-99)
[2018-07-31 05:15] LABS: Glucose,Whole Blood 154 mg/dL (75-99)
[2018-07-31 05:24] LABS: HCT 45.5 % (39.0-53.0); HGB 14.5 gm/dL (13.0-17.5); MCH 27.8 pg (25.0-35.0); Mean Platelet Volume 7.1; Platelet Count 230 k/uL (150-450); RBC 5.23 m/uL (4.30-5.90); RDW 13.7 % (11.5-15.5); WBC 13.6 k/uL (3.8-10.6)
[2018-07-31 05:27] LABS: Magnesium 2.1 mg/dL (1.6-2.3); Phosphorus 4.4 mg/dL (2.5-4.5); Potassium 3.6 mmol/L (3.5-5.1)
[2018-07-31 06:07] LABS: Lymphocytes # (M) 1.09 k/uL (1.0-4.8); Neutrophils # (M) 10.61 k/uL (1.3-7.7); Neutrophils % (M) 78 %; Nucleated Red Blood Cells 0 /100 WBC (0-0); Total Cells Counted 100
[2018-07-31 06:26] LABS: Glucose,Whole Blood 141 mg/dL (75-99)
[2018-07-31 07:12] LABS: Glucose,Whole Blood 149 mg/dL (75-99)
--- NOTE | 2018-07-31 07:45 | XR ---
EXAMINATION TYPE: XR chest 1V DATE OF EXAM: 07/31/2018 CLINICAL HISTORY: Difficulty breathing progress study. TECHNIQUE: Single AP portable upright view of the chest is obtained. COMPARISON: Chest x-ray from one day earlier and older studies. FINDINGS: There is interval removal of endotracheal and orogastric tubes. There is stable cardiomega ly. There is persistent left greater than right bibasilar opacities. No large pleural effusion or pne umothorax is seen bilaterally. Osseous structures are intact. IMPRESSION: Interval extubation. Other findings stable as there is cardiomegaly with left greater kameron n right bibasilar atelectasis and/or infiltrate redemonstrated.
[2018-07-31 08:15] LABS: Glucose,Whole Blood 336 mg/dL (75-99)
--- NOTE | 2018-07-31 08:38 | PN ---
PROGRESS NOTE Mr. Brown is a 52-year-old male with known history of severe nonischemic cardiomyopathy who came in with respiratory failure requiring mechanical ventilation. He has been extubated. He feels well this morning. Denying any chest pain. Hemodynamically, he is in sinus mechanism. He is on no pressors. He denies any chest pain. No dizziness. No palpitation. He denies any nausea. He continues to be at this time on Lasix 40 mg IV q.12 hours. He is on IV heparin, metoprolol tartrate 25 mg twice a day. PHYSICAL EXAMINATION: Blood pressure 147/80 with a heart rate in the 100s. Lungs no wheezes. Few crackles at the bases. HEART: Regular rate and rhythm, S1, S2. No S3. No rub or gallop. ABDOMEN: Soft, nontender. Extremities: No significant edema. LAB DATA: Revealed BUN and creatinine of 41, 2.2. Potassium 3.6. His chest x-ray revealed improvement of his congestive heart failure. IMPRESSION: 1. Severe nonischemic cardiomyopathy. Respiratory failure requiring mechanical ventilation. 2. Sinus tachycardia related to his heart failure, improving. 3. Renal failure, improving. RECOMMENDATIONS: From the cardiac standpoint, I will increase the dose of his beta jamaal. His dose of diuretic has been decreased. We will follow his renal function. Patient will require coronary angiography but I will wait until he is stabilized. His echocardiogram revealed significant mitral regurgitation. I have discussed those findings with the patient and he is in full understanding and agreement. MMGEOL / ISISN: [id number] /
[2018-07-31] MEDS: ASPIRIN 81 MG PO SCH (09:16)
[2018-07-31] MEDS: ATORVASTATIN 40 MG TAB PO SCH (09:17)
[2018-07-31] MEDS: PANTOPRAZOLE 40 MG/10 ML VIAL IV SCH (09:17)
[2018-07-31] MEDS: ISOSORBIDE MONONITRATE ER 30 MG TAB.ER.24H PO SCH (09:17)
[2018-07-31] MEDS: FUROSEMIDE 10 MG/ML 4 ML VIAL IV SCH (09:17)
[2018-07-31] MEDS: hydrALAZINE HCL 25 MG TAB PO SCH ×2 (09:17→19:53)
[2018-07-31] MEDS: METOPROLOL TARTRATE 25 MG TAB PO SCH ×2 (09:17→19:54)
[2018-07-31 09:23] LABS: Glucose,Whole Blood 344 mg/dL (75-99)
[2018-07-31 10:23] LABS: Glucose,Whole Blood 192 mg/dL (75-99)
--- NOTE | 2018-07-31 11:06 | P.PN ---
Subjective Progress Note Date: 07/31/18 Principal diagnosis: Acute hypoxic respiratory failure secondary to pulmonary edema. This is a 52-year-old white male with history of multiple medical problems including chronic LV dysfunction and ejection fraction of 20-25% based on an echocardiogram done in 2016. Patient used to see Dr. Freire for his nonischemic cardiomyopathy, however he has not been seen by cardiology for quite some time. Patient is also known to have history of congestive heart failure, type 2 diabetes, hypertension, he was brought by EMS with complaints of increased shortness of breath, and apparently upon arrival patient was noted to be in severe respiratory distress, unresponsive, pulse oximetry was in the 80s, patient had to be intubated immediately upon arrival. Chest x-ray was mostly consistent with pulmonary edema. Patient was placed on mechanical ventilation, presently on the following vent settings. Assist control rate of 18, tidal volume of 600 FiO2 of 80%, and PEEP of 5. Upon arrival to the ER patient was noted to have significantly elevated blood pressure over 200 systolic, and he was treated with nitroglycerin. Today he is off nitroglycerin , he is on Lasix drip which I have ordered last night, he is also on propofol at 50 mcg/kg/m, his peak airway pressure is 26 and his plateau pressures are in the range of high teens. Patient is hemodynamically stable today, not requiring any nitroglycerin. He is still on mechanical ventilation, and he is still on Lasix drip. Patient is sedated, and he seems to be responding well to Lasix drip. Labs on presentation showed leukocytosis with WBC count of 18.3. Hemoglobin 16.2. His initial ABG showed a pO2 of 256 pCO2 of 77 pH of 7.05. His BUN was 22 creatinine 1.57 blood sugar 391. Lactic acid was 10.3, follow- up lactic acid this morning is 3.0. Liver transaminases were slightly elevated. Troponin on presentation was 0.047 follow-up troponin this morning is 0.127 and proBNP level is just over 2000. Drug screen was negative. Influenza A and influenza B screening negative. Patient was reevaluated today on 07/30/2018, remains on mechanical ventilation, however his chest x-ray has showed a significant improvement over the last 24 hours. His ventilator settings are tidal volume 600 assist control rate 18 FiO2 50% and PEEP is 5. Patient was on propofol which I have discontinued, reviewed his urine output, patient is thin and negative balance, he has been diuresing well on his own, he is not requiring any pressors, hence I discontinued propofol, and recommended a weaning trial using a pressure support of 8 and CPAP. Repeat ABG on that mode of mechanical ventilation showed a pO2 of 168 pCO2 of 37 pH of 7.45. And this was again on a 50% FiO2 and PEEP of 5. Then proceeded to extubating the patient. WBC count remains elevated at 20.5. Hemoglobin is 13.8. PTT is 46.9/therapeutic. Renal profile is a bit worse, BUN is up to 51 and creatinine is 2.95. Troponin was not done today, however serial troponins yesterday and the day before have shown an increase of troponin consistent with non-ST elevation myocardial infarction. According to the was at bedside, patient has not been following up with any manager life , and the last time he was seen by cardiology was over 2 years ago. The results of his repeat echocardiogram on this admission are pending. However his previous echocardiogram in 2016, showed severe LV dysfunction ejection fraction of 20-25%. Patient was reevaluated today on 07/27/2018, he remains off mechanical ventilation, presently on 2 L nasal cannula, saturating in the mid 90s. Patient is hemodynamically stable, not requiring any norepinephrine. His urine output is excellent. And his labs were all reviewed his chest x-ray showed significant improvement with some left basilar atelectasis. There is no evidence of pulmonary edema at this point. WBC count is 13.6 hemoglobin is 14.5 PTT is 68.8, patient remains on heparin as per cardiology. Electrolytes are normal renal profile is improving BUN is down to 41 and creatinine is down to 2.22 from 2.95. Objective - Vital Signs Vital signs: Vital Signs Temp 98.5 F 07/31/18 08:00 Pulse 94 07/31/18 10:00 Resp 16 07/31/18 10:00 BP 154/97 07/31/18 10:00 Pulse Ox 95 07/31/18 10:00 Intake & Output 07/30/18 07/31/18 07/31/18 18:59 06:59 18:59 Intake Total 010.429 1356.808 318.798 Output Total 965 3975 1550 Balance -121.442 -2278.192 -1231.202 Weight 135.3 kg 132.5 kg Intake: IV 220 140 50 0.9 KVO 220 140 50 Intake, IV Titration 623.558 141.808 28.798 Amount Heparin Sod,Pork in 0.45% 500 NaCl 25,000 unit In 0.45 % NaCl 1 500ml.bag @ 7. 121 UNITS/KG/HR 20 mls/hr IV .Q24H [facility] Rx#: [id number] Insulin Regular 100 unit 23.558 41.808 28.798 In Sodium Chloride 0.9% 100 ml @ Per Protocol IV .Q0M [facility] Rx#:[id number] Propofol 1,000 mg In 100 Empty Bag 1 bag @ Titrate IV .Q0M [facility] Rx#: [id number] cefTRIAXone 1,000 mg In 100 Sodium Chloride 0.9% 50 ml @ 100 mls/hr IVPB Q24H [facility] Rx#:[id number] Oral 1350 240 Tube Feeding 35 Other 30 Output: Urine 965 3975 1550 Other: Voiding Method Indwelling Catheter Indwelling Catheter Indwelling Catheter - Exam Physical Exam: Revealed a 52-year-old white male, on 2 L nasal cannula, in no distress. Head: Atraumatic, normocephalic. . HEENT:[Neck is supple.] [No neck masses.] [No thyromegaly.] [No JVD.] PERRLA, EOMI, no icterus. Moist mucous membranes noted. Chest: [Minimal fine crackles at the left base, no rhonchi and no wheezes. Cardiac Exam: [Normal S1 and S2, no S3 gallop, no murmur.] Abdomen: [Obese, Soft, nontender, no megaly, no rebound, no guarding, normal bowel sounds.] Extremities: [Trace of bipedal edema No clubbing, no cyanosis.] Neurological Exam: Alert oriented 3, no gross focal neurologic deficits. Psychiatric: Normal mood, affect and mental status examination. Skin: No rashes - Labs CBC & Chem 7: 07/31/18 04:11 07/31/18 04:11 Labs: Abnormal Lab Results - Last 24 Hours (Table) 07/30/18 07/30/18 07/30/18 Range/Units 10:56 12:12 13:02 WBC (3.8-10.6) k/uL Neutrophils # (Manual) (1.3-7.7) k/uL Monocytes # (Manual) (0-1.0) k/uL APTT (22.0-30.0) sec ABG pO2 168 H (83-108) mmHg ABG Total CO2 27 H (19-24) mmol/L ABG O2 Saturation 98.0 H (94-97) % Chloride (98-107) mmol/L BUN (9-20) mg/dL Creatinine (0.66-1.25) mg/dL Glucose (74-99) mg/dL POC Glucose (mg/dL) 127 H 130 H (75-99) mg/dL 07/30/18 07/30/18 07/30/18 Range/Units 15:16 17:18 18:10 WBC (3.8-10.6) k/uL Neutrophils # (Manual) (1.3-7.7) k/uL Monocytes # (Manual) (0-1.0) k/uL APTT (22.0-30.0) sec ABG pO2 (83-108) mmHg ABG Total CO2 (19-24) mmol/L ABG O2 Saturation (94-97) % Chloride (98-107) mmol/L BUN (9-20) mg/dL Creatinine (0.66-1.25) mg/dL Glucose (74-99) mg/dL POC Glucose (mg/dL) 145 H 224 H 326 H (75-99) mg/dL 07/30/18 07/30/18 07/30/18 Range/Units 18:42 19:29 20:04 WBC (3.8-10.6) k/uL Neutrophils # (Manual) (1.3-7.7) k/uL Monocytes # (Manual) (0-1.0) k/uL APTT 55.7 H (22.0-30.0) sec ABG pO2 (83-108) mmHg ABG Total CO2 (19-24) mmol/L ABG O2 Saturation (94-97) % Chloride (98-107) mmol/L BUN (9-20) mg/dL Creatinine (0.66-1.25) mg/dL Glucose (74-99) mg/dL POC Glucose (mg/dL) 221 H 177 H (75-99) mg/dL 07/30/18 07/30/18 07/30/18 Range/Units 21:09 22:02 23:06 WBC (3.8-10.6) k/uL Neutrophils # (Manual) (1.3-7.7) k/uL Monocytes # (Manual) (0-1.0) k/uL APTT (22.0-30.0) sec ABG pO2 (83-108) mmHg ABG Total CO2 (19-24) mmol/L ABG O2 Saturation (94-97) % Chloride (98-107) mmol/L BUN (9-20) mg/dL Creatinine (0.66-1.25) mg/dL Glucose (74-99) mg/dL POC Glucose (mg/dL) 173 H 120 H 154 H (75-99) mg/dL 07/31/18 07/31/18 07/31/18 Range/Units 00:00 01:06 02:16 WBC (3.8-10.6) k/uL Neutrophils # (Manual) (1.3-7.7) k/uL Monocytes # (Manual) (0-1.0) k/uL APTT (22.0-30.0) sec ABG pO2 (83-108) mmHg ABG Total CO2 (19-24) mmol/L ABG O2 Saturation (94-97) % Chloride (98-107) mmol/L BUN (9-20) mg/dL Creatinine (0.66-1.25) mg/dL Glucose (74-99) mg/dL POC Glucose (mg/dL) 182 H 162 H 171 H (75-99) mg/dL 07/31/18 07/31/18 07/31/18 Range/Units 03:03 04:05 04:11 WBC 13.6 H (3.8-10.6) k/uL Neutrophils # (Manual) 10.61 H (1.3-7.7) k/uL Monocytes # (Manual) 1.90 H (0-1.0) k/uL APTT (22.0-30.0) sec ABG pO2 (83-108) mmHg ABG Total CO2 (19-24) mmol/L ABG O2 Saturation (94-97) % Chloride (98-107) mmol/L BUN (9-20) mg/dL Creatinine (0.66-1.25) mg/dL Glucose (74-99) mg/dL POC Glucose (mg/dL) 143 H 124 H (75-99) mg/dL 07/31/18 07/31/18 07/31/18 Range/Units 04:11 04:11 05:04 WBC (3.8-10.6) k/uL Neutrophils # (Manual) (1.3-7.7) k/uL Monocytes # (Manual) (0-1.0) k/uL APTT 68.8 H (22.0-30.0) sec ABG pO2 (83-108) mmHg ABG Total CO2 (19-24) mmol/L ABG O2 Saturation (94-97) % Chloride 108 H (98-107) mmol/L BUN 41 H (9-20) mg/dL Creatinine 2.22 H (0.66-1.25) mg/dL Glucose 126 H (74-99) mg/dL POC Glucose (mg/dL) 154 H (75-99) mg/dL 07/31/18 07/31/18 07/31/18 Range/Units 06:13 07:01 08:03 WBC (3.8-10.6) k/uL Neutrophils # (Manual) (1.3-7.7) k/uL Monocytes # (Manual) (0-1.0) k/uL APTT (22.0-30.0) sec ABG pO2 (83-108) mmHg ABG Total CO2 (19-24) mmol/L ABG O2 Saturation (94-97) % Chloride (98-107) mmol/L BUN (9-20) mg/dL Creatinine (0.66-1.25) mg/dL Glucose (74-99) mg/dL POC Glucose (mg/dL) 141 H 149 H 336 H (75-99) mg/dL 07/31/18 07/31/18 Range/Units 09:13 10:11 WBC (3.8-10.6) k/uL Neutrophils # (Manual) (1.3-7.7) k/uL Monocytes # (Manual) (0-1.0) k/uL APTT (22.0-30.0) sec ABG pO2 (83-108) mmHg ABG Total CO2 (19-24) mmol/L ABG O2 Saturation (94-97) % Chloride (98-107) mmol/L BUN (9-20) mg/dL Creatinine (0.66-1.25) mg/dL Glucose (74-99) mg/dL POC Glucose (mg/dL) 344 H 192 H (75-99) mg/dL Microbiology - Last 24 Hours (Table) 07/28/18 21:50 Gram Stain - Final Sputum Sputum Culture - Final 07/29/18 18:40 Blood Culture - Preliminary Blood No Growth after 24 hours 07/29/18 04:20 Urine Culture - Final Urine,Catheterized 07/28/18 20:54 Blood Culture Gram Stain - Preliminary Blood Blood Culture - Preliminary Coagulase Negative Staph Assessment and Plan Assessment: Impression: 1 acute hypoxic and hypercapnic respiratory failure secondary to acute pulmonary edema, secondary to systolic dysfunction and possible component of COPD, possible acute non-ST elevation myocardial infarction possible component of underlying pneumonia/community-acquired. However considering the improvement on the chest x-ray, pneumonia is felt to be less likely, and we are mostly dealing with acute respiratory failure secondary to pulmonary edema/ systolic congestive heart failure and acute non-ST elevation myocardial infarction. Patient was extubated on 07/30/2018, and he tolerated the extubation well over the last 24 hours. 2 acute hypertensive emergency upon presentation, resolved. Patient presented with significantly elevated systolic blood pressure, and pulmonary edema. 3 multiple comorbidities including type 2 diabetes, hypertension, chronic obstructive pulmonary disease, nonischemic cardiomyopathy and LV dysfunction, hyperlipidemia, acute on chronic kidney injury. Possibly cardiorenal in nature. Recommendation: Discussed with the patient his condition, explained to him that he should be more compliant with follow-up with the manager life, he does have significant cardiomyopathy and LV dysfunction, and I will plan to transfer the patient out of the ICU today to a monitor bed on selective. Discussed his condition with the manager life Dr. Freire. Time with Patient: Less than 30
[2018-07-31 11:12] LABS: Glucose,Whole Blood 138 mg/dL (75-99)
[2018-07-31] MEDS ORDERED: POTASSIUM CHLORIDE ER 20 MEQ TAB.ER PO STA (11:51)
--- NOTE | 2018-07-31 11:57 | P.PN ---
Subjective Progress Note Date: 07/31/18 Admitted to the hospital for shortness of breath. Cardiomyopathy with the EF of 20-25%. Currently on Lasix. Making good amount of urine improved shortness of breath. Objective - Vital Signs Vital signs: Vital Signs Temp 98.5 F 07/31/18 08:00 Pulse 85 07/31/18 11:00 Resp 17 07/31/18 11:00 BP 122/69 07/31/18 11:00 Pulse Ox 95 07/31/18 11:00 Intake & Output 07/30/18 07/31/18 07/31/18 18:59 06:59 18:59 Intake Total 136.576 8095.808 323.331 Output Total 965 3975 1550 Balance -121.442 -2278.192 -1226.669 Weight 135.3 kg 132.5 kg Intake: IV 220 140 50 0.9 KVO 220 140 50 Intake, IV Titration 623.558 141.808 33.331 Amount Heparin Sod,Pork in 0.45% 500 NaCl 25,000 unit In 0.45 % NaCl 1 500ml.bag @ 7. 121 UNITS/KG/HR 20 mls/hr IV .Q24H [facility] Rx#: [id number] Insulin Regular 100 unit 23.558 41.808 33.331 In Sodium Chloride 0.9% 100 ml @ Per Protocol IV .Q0M [facility] Rx#:[id number] Propofol 1,000 mg In 100 Empty Bag 1 bag @ Titrate IV .Q0M [facility] Rx#: [id number] cefTRIAXone 1,000 mg In 100 Sodium Chloride 0.9% 50 ml @ 100 mls/hr IVPB Q24H [facility] Rx#:[id number] Oral 1350 240 Tube Feeding 35 Other 30 Output: Urine 965 3975 1550 Other: Voiding Method Indwelling Catheter Indwelling Catheter Indwelling Catheter - Exam No acute distress S1-S2 heard Lungs clear Mckeon draining good urine Edema - Labs CBC & Chem 7: 07/31/18 04:11 07/31/18 04:11 Labs: Abnormal Lab Results - Last 24 Hours (Table) 07/30/18 07/30/18 07/30/18 Range/Units 12:12 13:02 15:16 WBC (3.8-10.6) k/uL Neutrophils # (Manual) (1.3-7.7) k/uL Monocytes # (Manual) (0-1.0) k/uL APTT (22.0-30.0) sec Chloride (98-107) mmol/L BUN (9-20) mg/dL Creatinine (0.66-1.25) mg/dL Glucose (74-99) mg/dL POC Glucose (mg/dL) 127 H 130 H 145 H (75-99) mg/dL 07/30/18 07/30/18 07/30/18 Range/Units 17:18 18:10 18:42 WBC (3.8-10.6) k/uL Neutrophils # (Manual) (1.3-7.7) k/uL Monocytes # (Manual) (0-1.0) k/uL APTT 55.7 H (22.0-30.0) sec Chloride (98-107) mmol/L BUN (9-20) mg/dL Creatinine (0.66-1.25) mg/dL Glucose (74-99) mg/dL POC Glucose (mg/dL) 224 H 326 H (75-99) mg/dL 07/30/18 07/30/18 07/30/18 Range/Units 19:29 20:04 21:09 WBC (3.8-10.6) k/uL Neutrophils # (Manual) (1.3-7.7) k/uL Monocytes # (Manual) (0-1.0) k/uL APTT (22.0-30.0) sec Chloride (98-107) mmol/L BUN (9-20) mg/dL Creatinine (0.66-1.25) mg/dL Glucose (74-99) mg/dL POC Glucose (mg/dL) 221 H 177 H 173 H (75-99) mg/dL 07/30/18 07/30/18 07/31/18 Range/Units 22:02 23:06 00:00 WBC (3.8-10.6) k/uL Neutrophils # (Manual) (1.3-7.7) k/uL Monocytes # (Manual) (0-1.0) k/uL APTT (22.0-30.0) sec Chloride (98-107) mmol/L BUN (9-20) mg/dL Creatinine (0.66-1.25) mg/dL Glucose (74-99) mg/dL POC Glucose (mg/dL) 120 H 154 H 182 H (75-99) mg/dL 07/31/18 07/31/18 07/31/18 Range/Units 01:06 02:16 03:03 WBC (3.8-10.6) k/uL Neutrophils # (Manual) (1.3-7.7) k/uL Monocytes # (Manual) (0-1.0) k/uL APTT (22.0-30.0) sec Chloride (98-107) mmol/L BUN (9-20) mg/dL Creatinine (0.66-1.25) mg/dL Glucose (74-99) mg/dL POC Glucose (mg/dL) 162 H 171 H 143 H (75-99) mg/dL 07/31/18 07/31/18 07/31/18 Range/Units 04:05 04:11 04:11 WBC 13.6 H (3.8-10.6) k/uL Neutrophils # (Manual) 10.61 H (1.3-7.7) k/uL Monocytes # (Manual) 1.90 H (0-1.0) k/uL APTT (22.0-30.0) sec Chloride 108 H (98-107) mmol/L BUN 41 H (9-20) mg/dL Creatinine 2.22 H (0.66-1.25) mg/dL Glucose 126 H (74-99) mg/dL POC Glucose (mg/dL) 124 H (75-99) mg/dL 07/31/18 07/31/18 07/31/18 Range/Units 04:11 05:04 06:13 WBC (3.8-10.6) k/uL Neutrophils # (Manual) (1.3-7.7) k/uL Monocytes # (Manual) (0-1.0) k/uL APTT 68.8 H (22.0-30.0) sec Chloride (98-107) mmol/L BUN (9-20) mg/dL Creatinine (0.66-1.25) mg/dL Glucose (74-99) mg/dL POC Glucose (mg/dL) 154 H 141 H (75-99) mg/dL 07/31/18 07/31/18 07/31/18 Range/Units 07:01 08:03 09:13 WBC (3.8-10.6) k/uL Neutrophils # (Manual) (1.3-7.7) k/uL Monocytes # (Manual) (0-1.0) k/uL APTT (22.0-30.0) sec Chloride (98-107) mmol/L BUN (9-20) mg/dL Creatinine (0.66-1.25) mg/dL Glucose (74-99) mg/dL POC Glucose (mg/dL) 149 H 336 H 344 H (75-99) mg/dL 07/31/18 07/31/18 Range/Units 10:11 11:01 WBC (3.8-10.6) k/uL Neutrophils # (Manual) (1.3-7.7) k/uL Monocytes # (Manual) (0-1.0) k/uL APTT (22.0-30.0) sec Chloride (98-107) mmol/L BUN (9-20) mg/dL Creatinine (0.66-1.25) mg/dL Glucose (74-99) mg/dL POC Glucose (mg/dL) 192 H 138 H (75-99) mg/dL Microbiology - Last 24 Hours (Table) 07/28/18 21:50 Gram Stain - Final Sputum Sputum Culture - Final 07/29/18 18:40 Blood Culture - Preliminary Blood No Growth after 24 hours 07/29/18 04:20 Urine Culture - Final Urine,Catheterized Assessment and Plan Assessment: #1 acute kidney injury secondary to type I cardiorenal syndrome. Creatinine improving. #2 CK D stage III secondary to diabetic nephropathy baseline creatinine 1.1-1.2 MG per DL. #3 cardiomyopathy with the EF of 20-25% #4 vent dependent respiratory failure status post extubation #5 hypokalemia Plan: #1 potassium replacement to maintain more than 4.0 #2 check magnesium in the morning #3 renal functions improving change Lasix to torsemide by mouth 40 mg daily #4 labs in the morning
[2018-07-31 12:17] LABS: Glucose,Whole Blood 154 mg/dL (75-99)
[2018-07-31 13:23] LABS: Glucose,Whole Blood 237 mg/dL (75-99)
[2018-07-31 14:01] LABS: Glucose,Whole Blood 268 mg/dL (75-99)
[2018-07-31 15:40] LABS: Glucose,Whole Blood 268 mg/dL (75-99)
[2018-07-31 16:18] LABS: Glucose,Whole Blood 222 mg/dL (75-99)
[2018-07-31 17:12] LABS: Glucose,Whole Blood 118 mg/dL (75-99)
[2018-07-31] MEDS: INSULIN DETEMIR 100 UNIT/ML 10 ML VIAL SQ SCH (18:33)
[2018-07-31] MEDS: INSULIN ASPART 100 UNIT/ML 1 ML 10 ML VIAL SQ SCH (20:24)
[2018-07-31 20:27] LABS: Glucose,Whole Blood 212 mg/dL (75-99)
--- NOTE | 2018-07-31 21:08 | PN ---
PROGRESS NOTE DATE OF SERVICE: 07/31/2018. This 52-year-old gentleman who was admitted with acute hypoxic respiratory failure also had a possible cardiorenal syndrome. The patient is feeling much better. Multiple consultants are following the patient closely. The patient is on IV diuretics also. The ejection fraction about 20 to 25%. No chest pain. No palpitations. No fever. EXAM: Alert and oriented times three. Pulse is 109. Blood pressure 99/70, respiration 26, temperature normal, pulse ox 93% on room air. HEENT: Conjunctivae normal. Oral mucosa moist. Neck is no jugular venous distention. No lymph node enlargement. Cardiovascular System: S1, S2. Respirations: Breath sounds diminished in the bases. A few scattered rhonchi and crackles. Abdomen is soft, nontender. Central nervous system: No focal deficits. LABS: WBC 13.2, hemoglobin is 14.5, creatinine is 2.2. ASSESSMENT: 1. Acute hypoxic respiratory failure with congestive heart failure acute exacerbation with acute on chronic systolic dysfunction, ejection fraction 20-25%. 2. Possible cardiorenal syndrome type 1. 3. Acute on chronic renal failure, multifactorial, possibly prerenal acute tubular necrosis. 4. Ejection fraction 20-25%, nonischemic cardiomyopathy. 5. Increased WBC. 6. Possible right lower lobe pneumonia with possible sepsis present on admission. 7. Severe metabolic acidosis change in mental status, metabolic encephalopathy, multifactorial. 8. Increased lactic acid. 9. Troponin 0.04 indeterminate. 10.History of congestive heart failure. 11.Diabetes mellitus type 2. 12.Hypertension. 13.Hyperlipidemia. 14.History of nicotine dependence. RECOMMENDATIONS AND DISCUSSION: Continue current medications, management and symptomatic treatment. Continue with diuretics. Continue with the rest of the medications. The patient is on Demadex 40 daily at this time. Otherwise, we will monitor the fluid and electrolytes balance closely. Continue the antibiotics. The prognosis is guarded because of multiple complex medical issues. Further recommendations to follow. We will follow closely with multiple consultants. MMGEOL / ISISN: [id number] /
[2018-08-01 04:51] LABS: Basophils # (A) 0.1 k/uL (0-0.2); Basophils % (A) 1 %; Eosinophils # (A) 0.3 k/uL (0-0.7); Eosinophils % (A) 2 %; HCT 43.6 % (39.0-53.0); HGB 14.2 gm/dL (13.0-17.5); Lymphocytes # (A) 1.3 k/uL (1.0-4.8); Lymphocytes % (A) 9 %; MCH 28.5 pg (25.0-35.0); MCHC 32.6 g/dL (31.0-37.0); MCV 87.4 fL (80.0-100.0); Mean Platelet Volume 6.9; Monocytes # (A) 2.1 k/uL (0-1.0); Monocytes % (A) 15 %; Neutrophils # (A) 10.1 k/uL (1.3-7.7); Neutrophils % (A) 71 %; Platelet Count 258 k/uL (150-450); RBC 4.99 m/uL (4.30-5.90); RDW 13.5 % (11.5-15.5); WBC 14.2 k/uL (3.8-10.6)
[2018-08-01 05:03] LABS: Calcium 9.3 mg/dL (8.4-10.2); Magnesium 2.1 mg/dL (1.6-2.3); Phosphorus 3.8 mg/dL (2.5-4.5); Potassium 3.8 mmol/L (3.5-5.1)
[2018-08-01] MEDS: INSULIN ASPART 100 UNIT/ML 1 ML 10 ML VIAL SQ SCH ×4 (07:07→20:33)
[2018-08-01 07:09] LABS: Glucose,Whole Blood 184 mg/dL (75-99)
[2018-08-01] MEDS: METOPROLOL TARTRATE 25 MG TAB PO SCH ×3 (09:26→22:06)
[2018-08-01] MEDS: ISOSORBIDE MONONITRATE ER 30 MG TAB.ER.24H PO SCH (09:26)
[2018-08-01] MEDS: hydrALAZINE HCL 25 MG TAB PO SCH ×2 (09:26→20:32)
[2018-08-01] MEDS: ATORVASTATIN 40 MG TAB PO SCH (09:26)
[2018-08-01] MEDS: ASPIRIN 81 MG PO SCH (09:26)
[2018-08-01] MEDS: TORSEMIDE 20 MG TAB PO SCH (09:26)
[2018-08-01] MEDS: PANTOPRAZOLE 40 MG/10 ML VIAL IV SCH (09:26)
--- NOTE | 2018-08-01 09:45 | PN ---
PROGRESS NOTE Mr. Brown is a 52-year-old male known history of severe cardiomyopathy, who presented with respiratory failure requiring mechanical ventilation. He is extubated feeling well, denying any chest pain, continues to be in sinus mechanism with episode of sinus tachycardia. He denies any dizziness or palpitation. He denies any nausea or vomiting. His urine output has been stable. He continues to be on metoprolol tartrate 25 mg twice a day, furosemide 40 mg daily, aspirin 81 mg daily Lipitor 40 mg daily, hydralazine 25 mg twice a day and isosorbide mononitrate 30 mg daily. PHYSICAL EXAMINATION: Blood pressure running in the 140s to 150s with a heart rate in the 90s. LUNGS: Clear with few crackles at the bases. HEART: Regular rate and rhythm S1, S2. No S3. No rub with a systolic murmur. ABDOMEN: Soft, nontender. EXTREMITIES: No edema. LAB DATA: BUN and creatinine are 34 and 1.75, which continues to improve. His potassium 3.8, hemoglobin 14.2. IMPRESSION: 1. Respiratory failure with congestive heart failure, severely impaired left ventricular systolic function. 2. Hypertension. 3. Renal failure improving with acute injury. 4. Prior history of nonischemic cardiomyopathy. RECOMMENDATION: From the cardiac standpoint, I will increase the dose of his beta jamaal and hydralazine. We will continue to follow his renal function. The patient has evidence of significant mitral regurgitation on echocardiography. Once he stabilizes he requires to undergo coronary angiography for the assessment of his valve to see if he is a candidate for an ICD implantation or other intervention. At this time, I will favor to optimize his status and depending on his progress, further recommendations will be made. MMODL / IJN: [id number] /
[2018-08-01 12:16] LABS: Glucose,Whole Blood 314 mg/dL (75-99)
--- NOTE | 2018-08-01 12:23 | P.PN ---
Subjective Progress Note Date: 08/01/18 Principal diagnosis: Acute hypoxic respiratory failure secondary to pulmonary edema. This is a 52-year-old white male with history of multiple medical problems including chronic LV dysfunction and ejection fraction of 20-25% based on an echocardiogram done in 2016. Patient used to see Dr. Freire for his nonischemic cardiomyopathy, however he has not been seen by cardiology for quite some time. Patient is also known to have history of congestive heart failure, type 2 diabetes, hypertension, he was brought by EMS with complaints of increased shortness of breath, and apparently upon arrival patient was noted to be in severe respiratory distress, unresponsive, pulse oximetry was in the 80s, patient had to be intubated immediately upon arrival. Chest x-ray was mostly consistent with pulmonary edema. Patient was placed on mechanical ventilation, presently on the following vent settings. Assist control rate of 18, tidal volume of 600 FiO2 of 80%, and PEEP of 5. Upon arrival to the ER patient was noted to have significantly elevated blood pressure over 200 systolic, and he was treated with nitroglycerin. Today he is off nitroglycerin , he is on Lasix drip which I have ordered last night, he is also on propofol at 50 mcg/kg/m, his peak airway pressure is 26 and his plateau pressures are in the range of high teens. Patient is hemodynamically stable today, not requiring any nitroglycerin. He is still on mechanical ventilation, and he is still on Lasix drip. Patient is sedated, and he seems to be responding well to Lasix drip. Labs on presentation showed leukocytosis with WBC count of 18.3. Hemoglobin 16.2. His initial ABG showed a pO2 of 256 pCO2 of 77 pH of 7.05. His BUN was 22 creatinine 1.57 blood sugar 391. Lactic acid was 10.3, follow- up lactic acid this morning is 3.0. Liver transaminases were slightly elevated. Troponin on presentation was 0.047 follow-up troponin this morning is 0.127 and proBNP level is just over 2000. Drug screen was negative. Influenza A and influenza B screening negative. Patient was reevaluated today on 07/30/2018, remains on mechanical ventilation, however his chest x-ray has showed a significant improvement over the last 24 hours. His ventilator settings are tidal volume 600 assist control rate 18 FiO2 50% and PEEP is 5. Patient was on propofol which I have discontinued, reviewed his urine output, patient is thin and negative balance, he has been diuresing well on his own, he is not requiring any pressors, hence I discontinued propofol, and recommended a weaning trial using a pressure support of 8 and CPAP. Repeat ABG on that mode of mechanical ventilation showed a pO2 of 168 pCO2 of 37 pH of 7.45. And this was again on a 50% FiO2 and PEEP of 5. Then proceeded to extubating the patient. WBC count remains elevated at 20.5. Hemoglobin is 13.8. PTT is 46.9/therapeutic. Renal profile is a bit worse, BUN is up to 51 and creatinine is 2.95. Troponin was not done today, however serial troponins yesterday and the day before have shown an increase of troponin consistent with non-ST elevation myocardial infarction. 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 The results of his repeat echocardiogram on this admission are pending. However his previous echocardiogram in 2016, showed severe LV dysfunction ejection fraction of 20-25%. Patient was reevaluated today on 07/31/2018, he remains off mechanical ventilation, presently on 2 L nasal cannula, saturating in the mid 90s. Patient is hemodynamically stable, not requiring any norepinephrine. His urine output is excellent. And his labs were all reviewed his chest x-ray showed significant improvement with some left basilar atelectasis. There is no evidence of pulmonary edema at this point. WBC count is 13.6 hemoglobin is 14.5 PTT is 68.8, patient remains on heparin as per cardiology. Electrolytes are normal renal profile is improving BUN is down to 41 and creatinine is down to 2.22 from 2.95. Patient was reevaluated today on 08/01/2018, remains off mechanical ventilation , he is presently a selective overflow. But remains in the ICU. He is on room air, he is saturating in the mid 90s, asymptomatic, no cough no wheezing no shortness of breath no chest pain. Not requiring any pressors, remains on diuretics, his baseline ejection fraction is 20-25%. Renal functioning is improving compared to the last 2 days, creatinine is down to 1.75, initial creatinine on presentation was 1.57. His creatinine yesterday was 2.22, and the day before was 2.95. CBC is relatively normal except for leukocytosis with WBC count of 14.2. Hemoglobin is 14.2. No chest x-ray was done today. Clinically the patient does not need a chest x-ray since he is doing well, and clearly there is no evidence of pulmonary edema on examination today. Objective - Vital Signs Vital signs: Vital Signs Temp 98.3 F 08/01/18 08:00 Pulse 101 H 08/01/18 08:00 Resp 22 08/01/18 08:00 BP 158/89 08/01/18 08:00 Pulse Ox 95 08/01/18 08:00 Intake & Output 07/31/18 08/01/18 08/01/18 18:59 06:59 18:59 Intake Total 443.345 630 Output Total 2310 700 500 Balance -1866.655 -70 -500 Weight 132.5 kg Intake: IV 130 30 0.9 KVO 130 30 Intake, IV Titration 73.345 100 Amount Insulin Regular 100 unit 73.345 In Sodium Chloride 0.9% 100 ml @ Per Protocol IV .Q0M [facility] Rx#:[id number] cefTRIAXone 1,000 mg In 100 Sodium Chloride 0.9% 50 ml @ 100 mls/hr IVPB Q24H [facility] Rx#:[id number] Oral 240 500 Output: Urine 2310 700 500 Other: Voiding Method Indwelling Catheter Urinal Urinal - Exam Physical Exam: Revealed a 52-year-old white male, on 2 L nasal cannula, in no distress. Head: Atraumatic, normocephalic. . HEENT:[Neck is supple.] [No neck masses.] [No thyromegaly.] [No JVD.] PERRLA, EOMI, no icterus. Moist mucous membranes noted. Chest: [Clear bilaterally, no crackles or rhonchi or wheezes. Cardiac Exam: [Slightly tachycardic rate ranging between 105 and 110. Normal S1 and S2, no S3 gallop, no murmur.] Abdomen: [Obese, Soft, nontender, no megaly, no rebound, no guarding, normal bowel sounds.] Extremities: [Trace of bipedal edema No clubbing, no cyanosis.] Neurological Exam: Alert oriented 3, no gross focal neurologic deficits. Psychiatric: Normal mood, affect and mental status examination. Skin: No rashes - Labs CBC & Chem 7: 08/01/18 04:23 08/01/18 04:23 Labs: Abnormal Lab Results - Last 24 Hours (Table) 07/31/18 07/31/18 07/31/18 Range/Units 13:11 13:49 15:28 WBC (3.8-10.6) k/uL Neutrophils # (1.3-7.7) k/uL Monocytes # (0-1.0) k/uL Chloride (98-107) mmol/L BUN (9-20) mg/dL Creatinine (0.66-1.25) mg/dL Glucose (74-99) mg/dL POC Glucose (mg/dL) 237 H 268 H 268 H (75-99) mg/dL 07/31/18 07/31/18 07/31/18 Range/Units 16:07 17:00 20:15 WBC (3.8-10.6) k/uL Neutrophils # (1.3-7.7) k/uL Monocytes # (0-1.0) k/uL Chloride (98-107) mmol/L BUN (9-20) mg/dL Creatinine (0.66-1.25) mg/dL Glucose (74-99) mg/dL POC Glucose (mg/dL) 222 H 118 H 212 H (75-99) mg/dL 08/01/18 08/01/18 08/01/18 Range/Units 04:23 04:23 06:58 WBC 14.2 H (3.8-10.6) k/uL Neutrophils # 10.1 H (1.3-7.7) k/uL Monocytes # 2.1 H (0-1.0) k/uL Chloride 109 H (98-107) mmol/L BUN 34 H (9-20) mg/dL Creatinine 1.75 H (0.66-1.25) mg/dL Glucose 135 H (74-99) mg/dL POC Glucose (mg/dL) 184 H (75-99) mg/dL 08/01/18 Range/Units 12:04 WBC (3.8-10.6) k/uL Neutrophils # (1.3-7.7) k/uL Monocytes # (0-1.0) k/uL Chloride (98-107) mmol/L BUN (9-20) mg/dL Creatinine (0.66-1.25) mg/dL Glucose (74-99) mg/dL POC Glucose (mg/dL) 314 H (75-99) mg/dL Microbiology - Last 24 Hours (Table) 07/28/18 20:54 Blood Culture Gram Stain - Final Blood Blood Culture - Final Staph hominis sub sp. hominis 07/29/18 18:40 Blood Culture - Preliminary Blood No Growth after 48 hours 07/28/18 21:50 Gram Stain - Final Sputum Sputum Culture - Final Assessment and Plan Assessment: Impression: 1 acute hypoxic and hypercapnic respiratory failure secondary to acute pulmonary edema, secondary to systolic dysfunction and possible component of COPD, possible acute non-ST elevation myocardial infarction . No clear-cut evidence of pneumonia 2 acute hypertensive emergency upon presentation, resolved. Patient presented with significantly elevated systolic blood pressure, and pulmonary edema. 3 multiple comorbidities including type 2 diabetes, hypertension, chronic obstructive pulmonary disease, nonischemic cardiomyopathy and LV dysfunction, hyperlipidemia, acute on chronic kidney injury. Possibly cardiorenal in nature. Recommendation: Continue present treatment plan, patient will need further cardiac workup down the line and I believe he is already aware that he will likely need to have a cardiac catheterization and AICD placement. From the pulmonary perspective, patient could be transferred out of the ICU, and we'll continue to follow on a daily basis until discharge. Time with Patient: Less than 30
--- NOTE | 2018-08-01 12:25 | P.PN ---
Subjective Progress Note Date: 08/01/18 Admitted to the hospital for shortness of breath. Cardiomyopathy with the EF of 20-25%. Making good amount of urine improved shortness of breath. IV Lasix was changed to by mouth torsemide. Objective - Vital Signs Vital signs: Vital Signs Temp 98.3 F 08/01/18 08:00 Pulse 101 H 08/01/18 08:00 Resp 22 08/01/18 08:00 BP 158/89 08/01/18 08:00 Pulse Ox 95 08/01/18 08:00 Intake & Output 07/31/18 08/01/18 08/01/18 18:59 06:59 18:59 Intake Total 443.345 630 Output Total 2310 700 500 Balance -1866.655 -70 -500 Weight 132.5 kg Intake: IV 130 30 0.9 KVO 130 30 Intake, IV Titration 73.345 100 Amount Insulin Regular 100 unit 73.345 In Sodium Chloride 0.9% 100 ml @ Per Protocol IV .Q0M [facility] Rx#:[id number] cefTRIAXone 1,000 mg In 100 Sodium Chloride 0.9% 50 ml @ 100 mls/hr IVPB Q24H [facility] Rx#:[id number] Oral 240 500 Output: Urine 2310 700 500 Other: Voiding Method Indwelling Catheter Urinal Urinal - Exam No acute distress S1-S2 heard Lungs clear Mckeon draining good urine Edema - Labs CBC & Chem 7: 08/01/18 04:23 08/01/18 04:23 Labs: Abnormal Lab Results - Last 24 Hours (Table) 07/31/18 07/31/18 07/31/18 Range/Units 13:11 13:49 15:28 WBC (3.8-10.6) k/uL Neutrophils # (1.3-7.7) k/uL Monocytes # (0-1.0) k/uL Chloride (98-107) mmol/L BUN (9-20) mg/dL Creatinine (0.66-1.25) mg/dL Glucose (74-99) mg/dL POC Glucose (mg/dL) 237 H 268 H 268 H (75-99) mg/dL 07/31/18 07/31/18 07/31/18 Range/Units 16:07 17:00 20:15 WBC (3.8-10.6) k/uL Neutrophils # (1.3-7.7) k/uL Monocytes # (0-1.0) k/uL Chloride (98-107) mmol/L BUN (9-20) mg/dL Creatinine (0.66-1.25) mg/dL Glucose (74-99) mg/dL POC Glucose (mg/dL) 222 H 118 H 212 H (75-99) mg/dL 08/01/18 08/01/18 08/01/18 Range/Units 04:23 04:23 06:58 WBC 14.2 H (3.8-10.6) k/uL Neutrophils # 10.1 H (1.3-7.7) k/uL Monocytes # 2.1 H (0-1.0) k/uL Chloride 109 H (98-107) mmol/L BUN 34 H (9-20) mg/dL Creatinine 1.75 H (0.66-1.25) mg/dL Glucose 135 H (74-99) mg/dL POC Glucose (mg/dL) 184 H (75-99) mg/dL 08/01/18 Range/Units 12:04 WBC (3.8-10.6) k/uL Neutrophils # (1.3-7.7) k/uL Monocytes # (0-1.0) k/uL Chloride (98-107) mmol/L BUN (9-20) mg/dL Creatinine (0.66-1.25) mg/dL Glucose (74-99) mg/dL POC Glucose (mg/dL) 314 H (75-99) mg/dL Microbiology - Last 24 Hours (Table) 07/28/18 20:54 Blood Culture Gram Stain - Final Blood Blood Culture - Final Staph hominis sub sp. hominis 07/29/18 18:40 Blood Culture - Preliminary Blood No Growth after 48 hours 07/28/18 21:50 Gram Stain - Final Sputum Sputum Culture - Final Assessment and Plan Assessment: #1 acute kidney injury secondary to type I cardiorenal syndrome. Creatinine improving. #2 CK D stage III secondary to diabetic nephropathy baseline creatinine 1.1-1.2 MG per DL. #3 cardiomyopathy with the EF of 20-25% #4 vent dependent respiratory failure status post extubation #5 hypokalemia Plan: #1 potassium replacement to maintain more than 4.0 and magnesium more than 2.0 #2 Renal functions improving.continue with torsemide. # 3 stable from nephrology point of view for discharge to be followed up in the office in 1-2 weeks.
[2018-08-01 17:31] LABS: Glucose,Whole Blood 168 mg/dL (75-99)
[2018-08-01 20:24] LABS: Glucose,Whole Blood 262 mg/dL (75-99)
[2018-08-01] MEDS: INSULIN DETEMIR 100 UNIT/ML 10 ML VIAL SQ SCH (20:33)
--- NOTE | 2018-08-01 23:18 | PN ---
PROGRESS NOTE DATE OF SERVICE: 08/01/2018 This is a 52-year-old gentleman admitted with acute hypoxic respiratory failure; also, CHF acute exacerbation. Ejection fraction was found to be only 24%. The patient has history of noncompliance also. The patient also had a possible cardiorenal syndrome. Multiple consultants are following the patient closely. PAST MEDICAL HISTORY: Reviewed. REVIEW OF SYSTEMS: Cardiovascular: No angina. Respiration: As mentioned earlier. GI: As mentioned earlier. : No dysuria. CURRENT MEDICATIONS: 1. Aspirin 81 mg. 2. Lipitor 40 mg a day. 3. Rocephin 1 g daily. 4. Keppra 750 mg b.i.d. 5. NovoLog insulin. 6. Levemir 40 units subcu q.h.s. 7. Imdur 30 mg. 8. Ativan 1 mg q.4 p.r.n. 9. Lopressor 25 mg p.o. t.i.d. 10.Narcan 0.2 q.2h p.r.n. 11.Protonix 40 mg. 12.Demadex 40 mg p.o. daily. PHYSICAL EXAM: Patient is alert and oriented x3. Pulse 83, blood pressure 147/85, respiration ( ), temperature 98 degrees, pulse ox 98% on room air. Patient is alert, oriented x3. Pulse 115, blood pressure 139/70, respiration 18, temperature 98.8, pulse ox 98% on room air. HEENT: Conjunctivae normal. Oral mucosa. NECK: No jugular venous distention. No lymph node enlargement. CARDIOVASCULAR: S1, S2. RESPIRATORY: Diminished breath sounds at the bases. Bilateral scattered rhonchi and crackles. ABDOMEN: Soft, nontender. LEGS: No swelling. NERVOUS SYSTEM: No focal deficits. LAB STUDIES: WBC 14.2, sodium 140, potassium 3.8, creatinine 0.75. ASSESSMENT: 1. Acute hypoxic respiratory failure with CHF acute exacerbation with acute on chronic systolic dysfunction, ejection fraction 20%-25%. 2. Possible cardiorenal syndrome type 1. 3. Acute on chronic renal failure, multifactorial, possibly prerenal acute tubular necrosis with ejection fraction 24% with nonischemic cardiomyopathy. 4. Increased WBC, possible right lower lobe pneumonia with possible sepsis present on admission. 5. Severe metabolic acidosis and change in mental status, metabolic encephalopathy, multifactorial, present on admission. 6. Increased lactic acid. 7. Troponin 0.044, indeterminate. 8. History of congestive heart failure. 9. Diabetes mellitus type 2. 10.Hypertension. 11.Hyperlipidemia. 12.History of nicotine dependence. RECOMMENDATIONS: Recommend to continue current management, continue to monitor, continue symptomatic treatment. Otherwise, continue with diuretics. Closely follow with multiple consultants. Prognosis guarded. Importance of compliance was stressed. Dr. Stanley will follow. Further recommendation to follow. MMODL / IJN: [id number] /
[2018-08-02 05:41] LABS: Basophils # (A) 0.1 k/uL (0-0.2); Basophils % (A) 1 %; Eosinophils # (A) 0.2 k/uL (0-0.7); Eosinophils % (A) 1 %; HCT 46.8 % (39.0-53.0); HGB 15.2 gm/dL (13.0-17.5); Lymphocytes # (A) 1.4 k/uL (1.0-4.8); Lymphocytes % (A) 10 %; MCH 27.8 pg (25.0-35.0); MCHC 32.5 g/dL (31.0-37.0); MCV 85.4 fL (80.0-100.0); Monocytes # (A) 1.8 k/uL (0-1.0); Monocytes % (A) 12 %; Neutrophils # (A) 10.9 k/uL (1.3-7.7); Neutrophils % (A) 74 %; Platelet Count 261 k/uL (150-450); RBC 5.48 m/uL (4.30-5.90); RDW 13.3 % (11.5-15.5); WBC 14.7 k/uL (3.8-10.6)
[2018-08-02 05:55] LABS: Calcium 9.8 mg/dL (8.4-10.2); Potassium 3.9 mmol/L (3.5-5.1)
[2018-08-02 06:52] LABS: Glucose,Whole Blood 158 mg/dL (75-99)
[2018-08-02] MEDS: INSULIN ASPART 100 UNIT/ML 1 ML 10 ML VIAL SQ SCH (07:06)
[2018-08-02 07:10] VITALS: BP 150/100
[2018-08-02] MEDS ORDERED: PANTOPRAZOLE 40 MG TABLET PO SCH (07:30)
--- NOTE | 2018-08-02 08:17 | XR ---
EXAMINATION TYPE: XR chest 1V portable DATE OF EXAM: 08/02/2018 Comparison: 07/31/2018 Clinical History: 52-year-old male ICU follow-up, cardiopulmonary disease Findings: Heart remains mildly enlarged. Interstitial prominence with peribronchial cuffing stable to slightly increased. Patchy bibasilar opacities remain, left greater than right. Possible small left effusion. Impression: Cardiomegaly now with suspected pulmonary vascular congestion. Clinically correlate. Patchy bibasilar areas of atelectasis/infiltrates and likely small left effusion are similar.
--- NOTE | 2018-08-02 08:22 | P.PN ---
Subjective Progress Note Date: 08/02/18 This is a 52-year-old gentleman with history of hypertension was admitted with respiratory difficulties and congestive heart failure. Patient has severe cardiomyopathy and evidence of severe mitral regurgitation. He also had renal failure and kidney functions are slowly improving. His creatinine is 1.73, at this time. Patient denies any chest pain or shortness of breath. Patient doesn 't appear to be in acute distress. His blood pressure is still running high is also tachycardic. The lungs are clear. No JVD or peripheral edema. I'm going to increase the dose of the metoprolol to 50 mg [address] Freire is planning to do a cardiac catheterization and possible ACD implantation. I will talk to him about his timing. We'll increase his activity as tolerated. It's possible that patient could be discharged home and be followed by him as an outpatient. If the blood pressure doesn't control well with current medical therapy, may add Norvasc. Objective - Vital Signs Vital signs: Vital Signs Temp 97.6 F 08/02/18 04:00 Pulse 83 08/02/18 06:00 Resp 19 08/02/18 06:00 BP 150/100 08/02/18 07:01 Pulse Ox 93 L 08/02/18 06:00 Intake & Output 08/01/18 08/02/18 08/02/18 18:59 06:59 18:59 Intake Total 50 Output Total 1700 1300 Balance -1700 -1250 Weight 131.4 kg Intake: IV 50 cefTRIAXone 1,000 mg In 50 Sodium Chloride 0.9% 50 ml @ 100 mls/hr IVPB Q24H [facility] Rx#:[id number] Output: Urine 1700 1300 Other: Voiding Method Urinal Urinal # Voids 1 - Exam GENERAL EXAM: Patient is alert and oriented and doesn't appear to be in any acute distress HEENT: Normocephalic. Normal reaction of pupils, equal size, normal range of extraocular motion. No erythema or exudates in the throat. NECK: No masses, no nuchal rigidity. CHEST: No chest wall deformity. LUNGS: Equal air entry with no crackles or wheeze. HEART: S1 and S2 normal with no audible mumurs or gallops. Regular rhythm, femorals equal on both sides.. ABDOMEN: No hepatosplenomegaly, normal bowel sounds, no guarding or rigidity. SKIN: No rashes CENTRAL NERVOUS SYSTEM: No focal deficits. EXTREMITIES: No cyanosis, clubbing or edema. - Labs CBC & Chem 7: 08/02/18 04:15 08/02/18 04:15 Labs: Abnormal Lab Results - Last 24 Hours (Table) 08/01/18 08/01/18 08/01/18 Range/Units 12:04 17:20 20:12 WBC (3.8-10.6) k/uL Neutrophils # (1.3-7.7) k/uL Monocytes # (0-1.0) k/uL BUN (9-20) mg/dL Creatinine (0.66-1.25) mg/dL Glucose (74-99) mg/dL POC Glucose (mg/dL) 314 H 168 H 262 H (75-99) mg/dL Phosphorus (2.5-4.5) mg/dL 08/02/18 08/02/18 08/02/18 Range/Units 04:15 04:15 06:41 WBC 14.7 H (3.8-10.6) k/uL Neutrophils # 10.9 H (1.3-7.7) k/uL Monocytes # 1.8 H (0-1.0) k/uL BUN 39 H (9-20) mg/dL Creatinine 1.73 H (0.66-1.25) mg/dL Glucose 142 H (74-99) mg/dL POC Glucose (mg/dL) 158 H (75-99) mg/dL Phosphorus 5.0 H (2.5-4.5) mg/dL Microbiology - Last 24 Hours (Table) 07/29/18 18:40 Blood Culture - Preliminary Blood No Growth after 72 hours Assessment and Plan (1) HTN (hypertension) Current Visit: Yes Status: Acute Code(s): I10 - ESSENTIAL (PRIMARY) HYPERTENSION SNOMED Code(s): 26504815 (2) Systolic CHF, acute on chronic Current Visit: Yes Status: Acute Code(s): I50.23 - ACUTE ON CHRONIC SYSTOLIC (CONGESTIVE) HEART FAILURE SNOMED Code(s): 185640455 (3) Diabetes Current Visit: No Status: Acute Code(s): E11.9 - TYPE 2 DIABETES MELLITUS WITHOUT COMPLICATIONS SNOMED Code(s): 13108236 (4) Hyperlipemia Current Visit: No Status: Acute Code(s): E78.5 - HYPERLIPIDEMIA, UNSPECIFIED SNOMED Code(s): 52240936 (5) Nonischemic cardiomyopathy Current Visit: No Status: Acute Code(s): I42.9 - CARDIOMYOPATHY, UNSPECIFIED SNOMED Code(s): 28291315 (6) Renal failure Current Visit: No Status: Acute Code(s): N19 - UNSPECIFIED KIDNEY FAILURE SNOMED Code(s): 12422255 Plan: we'll increase the dose of the beta jamaal to 50 mg 3 times a day of metoprolol. I'll discuss with Dr. Freire about the timing of his cardiac catheterization and AICD implantation. Most probably patient will be discharged home ,once his blood pressure is controlled.
[2018-08-02 08:45] VITALS: PULSE 98; RESP 12; TEMP 98.2
[2018-08-02] MEDS: ATORVASTATIN 40 MG TAB PO SCH (08:53)
[2018-08-02] MEDS: ASPIRIN 81 MG PO SCH (08:53)
[2018-08-02] MEDS: hydrALAZINE HCL 25 MG TAB PO SCH (08:53)
[2018-08-02] MEDS: ISOSORBIDE MONONITRATE ER 30 MG TAB.ER.24H PO SCH (08:53)
[2018-08-02] MEDS: TORSEMIDE 20 MG TAB PO SCH (08:53)
[2018-08-02] MEDS ORDERED: METOPROLOL TARTRATE 50 MG TAB PO SCH (09:00)
--- NOTE | 2018-08-02 09:10 | P.PN ---
Subjective Patient is seen in follow-up for acute kidney injury on chronic kidney disease. Patient has chronic kidney disease stage III secondary to diabetic kidney disease with baseline creatinine in the range of 1.1-1.2. Creatinine is stable at 1.73 today. Patient has systolic CHF with ejection fraction of 20-25% with severe mitral regurgitation. He is currently on torsemide 40 mg daily. Admits to good urine output. Denies chest pain or shortness of breath. Vital signs are stable. General: The patient appeared well nourished and normally developed. HEENT: Head exam is unremarkable. Neck is without jugular venous distension. LUNGS: Lungs are clear to auscultation and percussion. Breath sounds decreased. HEART: Rate and Rhythm are regular. First and second heart sounds normal. No murmurs, rubs or gallops. ABDOMEN: Abdominal exam reveals normal bowel sounds. Non-tender and non- distended. No evidence of peritonitis. EXTREMITITES: No clubbing, cyanosis, or edema. Objective - Vital Signs Vital signs: Vital Signs Temp 98.2 F 08/02/18 08:00 Pulse 98 08/02/18 08:00 Resp 12 08/02/18 08:00 BP 150/100 08/02/18 08:00 Pulse Ox 91 L 08/02/18 08:00 Intake & Output 08/01/18 08/02/18 08/02/18 18:59 06:59 18:59 Intake Total 50 Output Total 1700 1300 Balance -1700 -1250 Weight 131.4 kg Intake: IV 50 cefTRIAXone 1,000 mg In 50 Sodium Chloride 0.9% 50 ml @ 100 mls/hr IVPB Q24H [facility] Rx#:[id number] Output: Urine 1700 1300 Other: Voiding Method Urinal Urinal # Voids 1 - Labs CBC & Chem 7: 08/02/18 04:15 08/02/18 04:15 Labs: Abnormal Lab Results - Last 24 Hours (Table) 08/01/18 08/01/18 08/01/18 Range/Units 12:04 17:20 20:12 WBC (3.8-10.6) k/uL Neutrophils # (1.3-7.7) k/uL Monocytes # (0-1.0) k/uL BUN (9-20) mg/dL Creatinine (0.66-1.25) mg/dL Glucose (74-99) mg/dL POC Glucose (mg/dL) 314 H 168 H 262 H (75-99) mg/dL Phosphorus (2.5-4.5) mg/dL 08/02/18 08/02/18 08/02/18 Range/Units 04:15 04:15 06:41 WBC 14.7 H (3.8-10.6) k/uL Neutrophils # 10.9 H (1.3-7.7) k/uL Monocytes # 1.8 H (0-1.0) k/uL BUN 39 H (9-20) mg/dL Creatinine 1.73 H (0.66-1.25) mg/dL Glucose 142 H (74-99) mg/dL POC Glucose (mg/dL) 158 H (75-99) mg/dL Phosphorus 5.0 H (2.5-4.5) mg/dL Microbiology - Last 24 Hours (Table) 07/29/18 18:40 Blood Culture - Preliminary Blood No Growth after 72 hours Assessment and Plan Plan: Assessment: 1. Nonoliguric acute kidney injury secondary to ATN secondary to cardiorenal syndrome. Renal function stable. 2. Chronic kidney disease stage III secondary to diabetic kidney disease with baseline creatinine in the range of 1.1-1.2. 3. Systolic CHF with ejection fraction of 20-25% with severe mitral regurgitation. 4. Volume overload. Improved. 5. Diabetes mellitus. 6. Hypertension with chronic kidney disease. Plan: Maintain torsemide 40 mg once daily. Maintain current antihypertensives. Metoprolol increased today. Encouraged oral intake. Avoid nephrotoxins. Patient will need to follow-up outpatient in the next 1-2 weeks.
--- NOTE | 2018-08-02 09:14 | P.PN ---
Subjective Progress Note Date: 08/02/18 Principal diagnosis: Respiratory failure, hypertensive urgency, flash pulmonary edema Progress note dated 08/02/2018 A 52-year-old male who was admitted back on July 28 for respiratory failure , hypertensive urgency and flash pulmonary edema. The patient was intubated on July 28 and extubated on July 30. Currently, the patient is receiving only as room air in not receiving any IVs. He is a selective overflow patient. Based on his medication summary, he has history of diabetes hypertension and COPD CHF and obesity. He does smoke cigarettes. The patient is threatening to leave AGAINST MEDICAL ADVICE. He wants to be discharged home today. He apparently is going for a job interview later today. Apparently his son is taking him there. He states that the job is very important to him and if he is not discharged is morning, he will leave AGAINST MEDICAL ADVICE. I told the nurse, Wendy, to call Dr. Stanley and let him know so that he can be properly discharge. Currently, the patient looks relatively stable. Again not receiving any supplemental oxygen. Objective - Vital Signs Vital signs: Vital Signs Temp 98.2 F 08/02/18 08:00 Pulse 98 08/02/18 08:00 Resp 12 08/02/18 08:00 BP 150/100 08/02/18 08:00 Pulse Ox 91 L 08/02/18 08:00 Intake & Output 08/01/18 08/02/18 08/02/18 18:59 06:59 18:59 Intake Total 50 Output Total 1700 1300 Balance -1700 -1250 Weight 131.4 kg Intake: IV 50 cefTRIAXone 1,000 mg In 50 Sodium Chloride 0.9% 50 ml @ 100 mls/hr IVPB Q24H BLAIR Rx#:[id number] Output: Urine 1700 1300 Other: Voiding Method Urinal Urinal # Voids 1 - Exam No acute distress, oriented 3. Adamant about being discharged today. HEENT examination is grossly unremarkable. Mucous membranes are moist. No oral lesions. Neck supple. Full range of motion. No adenopathy thyromegaly or neck vein distention. Cardiovascular examination reveals regular rhythm rate. S1-S2 normal. No S3 or S4. No discernible murmur noted. Lungs reveal clear breath sounds. Breath sounds are equal bilaterally. No adventitious lung sounds including wheezes rhonchi or crackles. Abdomen soft and bowel sounds are heard. No masses or tenderness. Abdomen is obese. Extremities are intact. No cyanosis clubbing or edema. Skin is without rash or lesion. Neurologic examination is brief but nonfocal. - Labs CBC & Chem 7: 08/02/18 04:15 08/02/18 04:15 Labs: Abnormal Lab Results - Last 24 Hours (Table) 08/01/18 08/01/18 08/01/18 Range/Units 12:04 17:20 20:12 WBC (3.8-10.6) k/uL Neutrophils # (1.3-7.7) k/uL Monocytes # (0-1.0) k/uL BUN (9-20) mg/dL Creatinine (0.66-1.25) mg/dL Glucose (74-99) mg/dL POC Glucose (mg/dL) 314 H 168 H 262 H (75-99) mg/dL Phosphorus (2.5-4.5) mg/dL 08/02/18 08/02/18 08/02/18 Range/Units 04:15 04:15 06:41 WBC 14.7 H (3.8-10.6) k/uL Neutrophils # 10.9 H (1.3-7.7) k/uL Monocytes # 1.8 H (0-1.0) k/uL BUN 39 H (9-20) mg/dL Creatinine 1.73 H (0.66-1.25) mg/dL Glucose 142 H (74-99) mg/dL POC Glucose (mg/dL) 158 H (75-99) mg/dL Phosphorus 5.0 H (2.5-4.5) mg/dL Microbiology - Last 24 Hours (Table) 07/29/18 18:40 Blood Culture - Preliminary Blood No Growth after 72 hours Assessment and Plan Assessment: Assessment Acute hypoxemic and hypercapnic respiratory failure, secondary to acute pulmonary edema, requiring intubation on July 28 and extubation on the . Acute systolic dysfunction Possible acute non-ST segment elevation myocardial infarction COPD secondary to chronic tobacco use Hypertensive emergency/urgency, improved Diabetes mellitus Abdominal obesity. Hypertension Hyperlipidemia Acute on chronic kidney injury. Plan: Plan dated 08/02/2018 Currently, the patient is not requiring any supplemental oxygen or IV fluids. He probably should stay in the hospital for a day or 2 more but he is adamant about leaving for this job interview. He states his son will drive him to the interview. I told the nurse to call his primary care physician, Dr. Stanley, and discussed that with him. In addition, the patient might be signing out AGAINST MEDICAL ADVICE. Finally, the patient does need follow-up with cardiology as soon as possible. In addition, the patient should follow-up with my partner with complete pulmonary function test to evaluate whether or not he has COPD. He does continue to smoke. His prognosis is very guarded. He could leave the hospital and have another significant event which may lead to readmission and/ or Critical care time is 32 minutes Time with Patient: Greater than 30
[2018-08-02 10:32] VITALS: BMI 37.2
--- NOTE | 2018-08-02 11:39 | P.DS ---
Providers Date of admission: 07/28/18 22:03 Expected date of discharge: 08/02/18 Attending physician: Judd Stanley Consults: 07/28/18 21:47 Consult Physician Routine Consulting Provider: Serg Aguirre Consult Reason/Comments: chf Do you want consulting provider notified?: Already Contacted 07/28/18 21:49 Consult Physician Routine Consulting Provider: Willie Mcclain Consult Reason/Comments: resp failure Do you want consulting provider notified?: Already Contacted 07/30/18 18:54 Consult Physician Routine Consulting Provider: Edwige Beltran Consult Reason/Comments: arf Do you want consulting provider notified?: Yes Primary care physician: Judd Stanley Hospital Course: 52-year-old male was brought to the emergency room by EMS with shortness of breath patient was unresponsive and subsequently intubated. Patient is been evaluated by cardiology pulmonology and Dr. Beltran. Patient is requesting on discharge home pulmonology has some concerns about discharge. Patient is to follow-up with cardiology for cardiac catheterization. Patient's been stabilized by him nephrology. Patient states that he feels well does not have any shortness of breath and wanting to be discharged home has a job interview scheduled Assessment Acute hypoxic respiratory failure with the congestive heart failure acute exacerbation systolic dysfunction with ejection fraction 20-25% Cardiorenal syndrome Acute chronic renal failure Right lower lobe pneumonia Severe metabolic acidosis with mental status changes metabolic encephalopathy Troponin elevated indeterminant History of congestive heart failure Diabetes type 2 hypertension Hyperlipidemia Plan Follow-up closely with cardiology pulmonology and family physician Dr. Judd Stanley Patient requesting discharge against her wishes of a education associate Patient Condition at Discharge: Serious Plan - Discharge Summary Discharge Rx Participant: No New Discharge Prescriptions: New Amoxicillin/Potassium Clav [Augmentin 875-125 Tablet] 1 tab PO Q12HR 7 Days # 14 tab Aspirin 81 mg PO DAILY chew Atorvastatin [Lipitor] 40 mg PO DAILY 30 Days #30 tab hydrALAZINE HCL [Apresoline] 50 mg PO BID 60 Days #60 tab Insulin Aspart [NovoLOG (formulary)] 0 unit SQ ACHS vial Isosorbide Mononitrate ER [Imdur] 30 mg PO DAILY 30 Days #30 tab.er.24h Metoprolol Tartrate [Lopressor] 50 mg PO TID 90 Days #90 tab Pantoprazole [Protonix] 40 mg PO -BRKFST 30 Days #30 tablet. Torsemide [Demadex] 40 mg PO DAILY 30 Days #30 tab Continue Albuterol Inhaler [Ventolin Hfa Inhaler] 1 - 2 puff INHALATION RT-Q6H #1 inhaler Albuterol Nebulized [Ventolin Nebulized] 1 vial INHALATION RT-TID Insulin Glargine,Hum.rec.anlog [Basaglar Kwikpen U-100] 40 unit SQ DAILY Discontinued Metoprolol Succinate (ER) [Toprol Xl] 50 mg PO DAILY Furosemide [Lasix] 40 mg PO DAILY #5 tablet Quinapril HCl 40 mg PO DAILY Discharge Medication List Albuterol Inhaler [Ventolin Hfa Inhaler] 1 - 2 puff INHALATION RT-Q6H #1 inhaler 04/25/18 [Rx] Albuterol Nebulized [Ventolin Nebulized] 1 vial INHALATION RT-TID 07/28/18 [ History] Insulin Glargine,Hum.rec.anlog [Basaglar Kwikpen U-100] 40 unit SQ DAILY [History] Amoxicillin/Potassium Clav [Augmentin 875-125 Tablet] 1 tab PO Q12HR 7 Days #14 tab 08/02/18 [Rx] Aspirin 81 mg PO DAILY chew 08/02/18 [Rx] Atorvastatin [Lipitor] 40 mg PO DAILY 30 Days #30 tab 08/02/18 [Rx] Insulin Aspart [NovoLOG (formulary)] 0 unit SQ ACHS vial 08/02/18 [Rx] Isosorbide Mononitrate ER [Imdur] 30 mg PO DAILY 30 Days #30 tab.er.24h [Rx] Metoprolol Tartrate [Lopressor] 50 mg PO TID 90 Days #90 tab 08/02/18 [Rx] Pantoprazole [Protonix] 40 mg PO AC-BRKFST 30 Days #30 tablet. 08/02/18 [Rx] Torsemide [Demadex] 40 mg PO DAILY 30 Days #30 tab 08/02/18 [Rx] hydrALAZINE HCL [Apresoline] 50 mg PO BID 60 Days #60 tab 08/02/18 [Rx] Follow up Appointment(s)/Referral(s): Judd Stanley MD [Primary Care Provider] - 08/04/18 2:30 pm Chris Freire MD [STAFF PHYSICIAN] - 1 Week Rehan Spencer MD [STAFF PHYSICIAN] - 1 Week (Cardiology office will contact you with confirmation of care switched to Dr. Spencer and appointment can be made at that time. Office stated it could take a couple days. If you do not received a call in two days from the office please call. Call if you have not received a call back.) Roly Kim DO [STAFF PHYSICIAN] - 1 Week (please call and makd a follow up appointment) Patient Instructions/Handouts: *[facility] - After Heart Catheterization - Pharmacy Buyer Instructions, How to Stop Smoking (GEN), Heart Healthy Diet (GEN ), Cigarette Smoking and Your Health (GEN), Weight Management (DC), Managing Diabetes During Sick Days (ED), Implantable Cardioverter Defibrillator (GEN), Hypertension and Diabetes (GEN), Diabetes and Nutrition (ED) Discharge Disposition: HOME SELF-CARE
--- NOTE | 2018-08-03 16:16 | CDI ---
Documentation Clarification Form Date: 08/03/2018 4:04:25 PM From: SABINE Montalvo; Alesia Snider [employer] Level[employer] Machine Phone: If you have a question about this query, please contact Alesia Snider Be[employer] Leveling Machine at [phone] between 8am and 5pm. Admit Date: 07/28/2018 10:03:00 PM Patient Name: Cricket Brown Visit Number: [id number] Discharge Date: 08/02/2018 ATTENTION: The Clinical Documentation Specialists (CDI) and [facility] Coding Staff appreciate your assistance in clarifying documentation. Please respond to the clarification below the line at the bottom and electronically sign. The CDI & [facility] Coding staff will review the response and follow-up if needed. Please note: Queries are made part of the Legal Health Record. If you have any questions, please contact the author of this message via ITS. Judd Cano MD Rule out sepsis is documented on the H&P. The progress notes state possible sepsis, but it is not clear by the time of the discharge summary whether this diagnosis is ruled in or out. Patient history/risk factors: Admitted with acute respiratory failure, CHF exacerbation and pneumonia w/severe metabolic acidosis. Clinical Indicators: ED vitals; temp 97.5, pulse 144, BP 227/183, WBC 18.3. Treatment: Intubation, bronchodilators, antibiotics. In your professional opinion, can you please clarify? Sepsis ruled in Sepsis ruled out Other, please specify Unable to determine MTDD
--- NOTE | 2018-08-11 09:33 | CDI ---
Documentation Clarification Form Date: 08/11/2018 From: SABINE Montalvo; Alesia Snider Instructional Developer Phone: If you have a question , please contact Alesia Snider Instructional Developer at [phone] between 8am &5pm. Admit Date: 07/28/2018 10:03:00 PM Patient Name: Cricket Brown Visit Number: [id number] Discharge Date: 08/02/2018 ATTENTION: The Clinical Documentation Specialists (CDI) and [facility] Coding Staff appreciate your assistance in clarifying documentation. Please respond to the clarification below the line at the bottom and electronically sign. The CDI & [facility] Coding staff will review the response and follow-up if needed. Please note: Queries are made part of the Legal Health Record. If you have any questions, please contact the author of this message via ITS. Judd Cano MD Rule out sepsis is documented on the H&P. The progress notes state possible sepsis, but it is not clear in the discharge summary whether this diagnosis is ruled in or out. Patient history/risk factors: Admitted with acute respiratory failure, CHF exacerbation and pneumonia w/severe metabolic acidosis. Clinical Indicators: ED vitals; temp 97.5, pulse 144, BP 227/183, WBC 18.3. Treatment: Intubation, bronchodilators, antibiotics. In your professional opinion, can you please clarify? Sepsis ruled in Sepsis ruled out Other, please specify Unable to determine MTDD
--- NOTE | 2018-08-26 08:22 | P.PN ---
Progress Note - Text addendum specialist not diagnosing sepsis respiratory failure secondary to flash pulmonary edema chf systolic dysfunction EF 20-25% required ventilation with intubation
== END 2018-08-02 11:30 | disposition home or self-care (01) | DRG 280 ==
LOC: EC 20:43 → 2SICU 22:03
PROVIDERS: ADMIT Family Medicine; ATTEND Family Medicine
PROC: 5A1945Z Respiratory Ventilation, 24-96 Consecutive Hours (ICD-10-PCS; principal; 2018-07-28)
PROC: 0BH18EZ Insertion of Endotracheal Airway into Trachea, Via Natural or Artificial Opening Endoscopic (ICD-10-PCS; principal; 2018-07-28)
DX: I13.0 Hypertensive heart and chronic kidney disease with heart failure and stage 1 through stage 4 chronic kidney disease, or unspecified chronic kidney disease (principal); I21.4 Non-ST elevation (NSTEMI) myocardial infarction; I50.23 Acute on chronic systolic (congestive) heart failure; J18.9 Pneumonia, unspecified organism; J96.01 Acute respiratory failure with hypoxia; J96.02 Acute respiratory failure with hypercapnia; N17.0 Acute kidney failure with tubular necrosis; G93.41 Metabolic encephalopathy; I16.1 Hypertensive emergency; J44.0 Chronic obstructive pulmonary disease with (acute) lower respiratory infection; J98.11 Atelectasis; E87.2 Acidosis; I42.9 Cardiomyopathy, unspecified; N18.3 Chronic kidney disease, stage 3 (moderate); Z79.82 Long term (current) use of aspirin; I08.1 Rheumatic disorders of both mitral and tricuspid valves; F17.210 Nicotine dependence, cigarettes, uncomplicated; E78.5 Hyperlipidemia, unspecified; E66.9 Obesity, unspecified; E11.21 Type 2 diabetes mellitus with diabetic nephropathy; E11.22 Type 2 diabetes mellitus with diabetic chronic kidney disease; Z79.899 Other long term (current) drug therapy; Z82.49 Family history of ischemic heart disease and other diseases of the circulatory system; Z83.3 Family history of diabetes mellitus; Z91.19 Patient's noncompliance with other medical treatment and regimen; Z68.37 Body mass index [BMI] 37.0-37.9, adult
CPT/HCPCS: 31500; 36415; 36600; 51702; 71045; 80048; 80053; 80306; 81001; 82550; 82553; 82805; 83036; 83605; 83735; 83880; 84100; 84484; 85025; 85610; 85730; 87040; 87070; 87077; 87086; 87186; 87205; 87502; 93005; 93306; 94002; 94003; 94640; 96365; 96368; 96374; 96375; 96376; 99291

== ENCOUNTER 2018-12-16 12:57 | Inpatient (IN) | payer OTHER ==
[2018-12-16 13:13] LABS: Glucose,Whole Blood >600 mg/dL (75-99)
[2018-12-16 14:25] LABS: Basophils # (A) 0.1 k/uL (0-0.2); Basophils % (A) 1 %; Eosinophils # (A) 0.3 k/uL (0-0.7); Eosinophils % (A) 2 %; HCT 46.1 % (39.0-53.0); Lymphocytes # (A) 1.3 k/uL (1.0-4.8); Lymphocytes % (A) 9 %; MCH 28.2 pg (25.0-35.0); MCHC 32.5 g/dL (31.0-37.0); MCV 86.7 fL (80.0-100.0); Mean Platelet Volume 7.5; Monocytes % (A) 6 %; Neutrophils # (A) 12.7 k/uL (1.3-7.7); Neutrophils % (A) 82 %; Platelet Count 265 k/uL (150-450); RBC 5.31 m/uL (4.30-5.90); RDW 13.3 % (11.5-15.5); WBC 15.5 k/uL (3.8-10.6)
[2018-12-16 14:43] LABS: Albumin 4.2 g/dL (3.5-5.0); Calcium 9.5 mg/dL (8.4-10.2); INR 0.9 (<1.2); Prothrombin Time 9.4 sec (9.0-12.0); Total Bilirubin 0.8 mg/dL (0.2-1.3); Total Protein 6.8 g/dL (6.3-8.2)
[2018-12-16 15:08] LABS: Partial Thromboplastin Time 20.4 sec (22.0-30.0)
[2018-12-16] MEDS ORDERED: SODIUM CHLORIDE 0.9% 1,000 ML IV ONE ×2 (15:13→17:08)
[2018-12-16] MEDS ORDERED: INSULIN REGULAR BOLUS (FROM DRIP BAG) IV ONE (15:13)
[2018-12-16 15:44] LABS: Glucose,Whole Blood >600 mg/dL (75-99)
[2018-12-16] MEDS: SODIUM CHLORIDE 0.9% 1,000 ML IV SCH ×3 (15:44→18:39)
[2018-12-16 15:45] LABS: Appearance,Urine Clear (Clear); Bilirubin,Urine Negative (Negative); Blood,Urine Negative (Negative); Color,Urine Light Yellow; Glucose,Urine (UA) 4+ (Negative); Ketones,Urine Negative (Negative); Leukocyte Esterase,Urine Negative (Negative); Nitrite,Urine Negative (Negative); Protein,Urine Trace (Negative); Specific Gravity,Urine 1.031 (1.001-1.035); Urobilinogen,Urine <2.0 mg/dL (<2.0)
[2018-12-16] MEDS: INSULIN REGULAR 100 UNIT in SODIUM CHLORIDE 0.9% 100 ML IV SCH ×2 (15:46→22:20)
--- NOTE | 2018-12-16 15:52 | ED ---
Recheck HPI - General Chief Complaint: Recheck/Abnormal Lab/Rx Stated Complaint: Hyperglycemia, 1000 BS Time Seen by Provider: 12/16/18 14:59 Source: patient, RN notes reviewed, old records reviewed Mode of arrival: ambulatory Limitations: no limitations - History of Present Illness Initial Comments: Patient is a 53-year-old male known diabetic presents emergency department today with elevated blood sugar episodes. He went to his PCP yesterday for diabetic neuropathy pain. They did some lab work. They called him and his blood sugar was greater than 1000. They sent him in for evaluation. Patient states she's been off of his insulin for 3 months. He was did this because the openstack developer told him he needed to lose weight and I would get him to lose weight if he stopped taking insulin. Patient states that he hasn't been feeling well conside ring his blood sugars been this elevated. - Related Data Home Medications Medication Instructions Recorded Confirmed Aspirin 325 mg PO DAILY 12/16/18 12/16/18 Carvedilol [Coreg] 12.5 mg PO BID 12/16/18 12/16/18 INSULIN LISPRO (humaLOG) [humaLOG] 10 units SQ DAILY 12/16/18 12/16/18 Insulin Detemir (Levemir) [Levemir] 20 unit SQ HS 12/16/18 12/16/18 Sacubitril/Valsartan [Entresto 49 1 tab PO DAILY 12/16/18 12/16/18 mg-51 mg Tablet] metFORMIN HCL [Glucophage] 1,000 mg PO BID 12/16/18 12/16/18 Previous Rx's Medication Instructions Recorded Atorvastatin [Lipitor] 40 mg PO DAILY 30 Days #30 tab 08/02/18 Pantoprazole [Protonix] 40 mg PO AC-[id number] 30 Days #30 08/02/18 tablet. Torsemide [Demadex] 40 mg PO DAILY 30 Days #30 tab 08/02/18 Allergies Allergy/AdvReac Type Severity Reaction Status Date / Time No Known Allergies Allergy Verified 12/16/18 15:53 Review of Systems ROS Statement: Those systems with pertinent positive or pertinent negative responses have been documented in the HPI. ROS Other: All systems not noted in ROS Statement are negative. Past Medical History Past Medical History: Heart Failure, COPD, Diabetes Mellitus, Hyperlipidemia, Hypertension History of Any Multi-Drug Resistant Organisms: None Reported Past Surgical History: No Surgical Hx Reported Past Anesthesia/Blood Transfusion Reactions: No Reported Reaction Past Psychological History: No Psychological Hx Reported Smoking Status: Current some day smoker Past Alcohol Use History: None Reported Past Drug Use History: None Reported - Past Family History Father History Unknown: Yes Family Medical History: No Reported History Mother History Unknown: Yes Family Medical History: Coronary Artery Disease (CAD), Diabetes Mellitus Additional Family Medical History / Comment(s): cabg Brother(s) History Unknown: Yes Family Medical History: No Reported History Sister(s) History Unknown: Yes Family Medical History: No Reported History Son(s) History Unknown: Yes Family Medical History: No Reported History General Exam - General Exam Comments Initial Comments: This is a 53-year-old male. Alert and oriented 3. Patient appears in no significant distress. Limitations: no limitations General appearance: alert, in no apparent distress Head exam: Present: atraumatic, normocephalic, normal inspection Eye exam: Present: normal appearance, PERRL, EOMI. Absent: scleral icterus, conjunctival injection, periorbital swelling ENT exam: Present: normal exam, mucous membranes moist Neck exam: Present: normal inspection. Absent: tenderness, meningismus, lym phadenopathy Respiratory exam: Present: normal lung sounds bilaterally. Absent: respiratory distress, wheezes, rales, rhonchi, stridor Cardiovascular Exam: Present: regular rate, normal rhythm, normal heart sounds. Absent: systolic murmur, diastolic murmur, rubs, gallop, clicks GI/Abdominal exam: Present: soft, normal bowel sounds. Absent: distended, tenderness, guarding, rebound, rigid Extremities exam: Present: normal inspection, full ROM, normal capillary refill. Absent: tenderness, pedal edema, joint swelling, calf tenderness Back exam: Present: normal inspection Neurological exam: Present: alert, oriented X3, CN II-XII intact Psychiatric exam: Present: normal affect, normal mood Course Vital Signs 12/16/18 12/16/18 12/16/18 13:05 16:00 16:30 Temperature 98.2 F Pulse Rate 115 H 101 H 105 H Respiratory 22 18 18 Rate Blood Pressure 163/87 103/78 115/80 O2 Sat by Pulse 96 96 93 L Oximetry 12/16/18 12/16/18 17:00 17:30 Temperature Pulse Rate 102 H 99 Respiratory 14 18 Rate Blood Pressure 102/68 93/66 O2 Sat by Pulse 94 L 98 Oximetry Medical Decision Making - Medical Decision Making is a 53-year-old male present emergency department today for outpatient lab work showing significant hyperglycemia. Patient had outpatient blood sugar of over 1000. He stopped his insulin for the past 3 months because he was told that if he did so he would lose weight. He reports that his openstack developer told him to do this. At this time Patient denies any significant pain signs or bilateral diabetic neuropathy. He is sent in by his PCP today for admission and restarting insulin. Upon arrival patient's blood sugar was greater than 600. Labwork was initiated. Blood sugar was 750. Patient was started on insulin bolus and insulin protocol. Acetone is negative. Patient initial laboratory show elevated potassium 6.0. On redraw after receiving insulin at 4.7. Patient at this time will be admitted for uncontrolled diabetes hyperglycemia. - Lab Data Result diagrams: 12/16/18 14:11 12/16/18 17:30 Lab Results 12/16/18 12/16/18 12/16/18 Range/Units 13:10 14:11 14:11 WBC 15.5 H (3.8-10.6) k/uL RBC 5.31 (4.30-5.90) m/uL Hgb 15.0 (13.0-17.5) gm/dL Hct 46.1 (39.0-53.0) % MCV 86.7 (80.0-100.0) fL MCH 28.2 (25.0-35.0) pg MCHC 32.5 (31.0-37.0) g/dL RDW 13.3 (11.5-15.5) % Plt Count 265 (150-450) k/uL Neutrophils % 82 % Lymphocytes % 9 % Monocytes % 6 % Eosinophils % 2 % Basophils % 1 % Neutrophils # 12.7 H (1.3-7.7) k/uL Lymphocytes # 1.3 (1.0-4.8) k/uL Monocytes # 1.0 (0-1.0) k/uL Eosinophils # 0.3 (0-0.7) k/uL Basophils # 0.1 (0-0.2) k/uL PT (9.0-12.0) sec INR (<1.2) APTT (22.0-30.0) sec Sodium 128 L (137-145) mmol/L Potassium 6.0 H (3.5-5.1) mmol/L Chloride 95 L (98-107) mmol/L Carbon Dioxide 20 L (22-30) mmol/L Anion Gap 13 mmol/L BUN 47 H (9-20) mg/dL Creatinine 1.86 H (0.66-1.25) mg/dL Est GFR (CKD-EPI)AfAm 46 (>60 ml/min/1.73 sqM) Est GFR (CKD-EPI)NonAf 40 (>60 ml/min/1.73 sqM) Glucose 751 H* (74-99) mg/dL POC Glucose (mg/dL) >600 H (75-99) mg/dL POC Glu Boat Outboard Engine Mechanic ID Parminder Ocampo Calcium 9.5 (8.4-10.2) mg/dL Total Bilirubin 0.8 (0.2-1.3) mg/dL AST 22 (17-59) U/L ALT 32 (21-72) U/L Alkaline Phosphatase 88 (38-126) U/L Troponin I (0.000-0.034) ng/mL Total Protein 6.8 (6.3-8.2) g/dL Albumin 4.2 (3.5-5.0) g/dL Urine Color Urine Appearance (Clear) Urine pH (5.0-8.0) Ur Specific [place] (1.001-1.035) Urine Protein (Negative) Urine Glucose (UA) (Negative) Urine Ketones (Negative) Urine Blood (Negative) Urine Nitrite (Negative) Urine Bilirubin (Negative) Urine Urobilinogen (<2.0) mg/dL Ur Leukocyte Esterase (Negative) Acetone, Qual (Negative) 12/16/18 12/16/18 12/16/18 Range/Units 14:11 14:11 14:11 WBC (3.8-10.6) k/uL RBC (4.30-5.90) m/uL Hgb (13.0-17.5) gm/dL Hct (39.0-53.0) % MCV (80.0-100.0) fL MCH (25.0-35.0) pg MCHC (31.0-37.0) g/dL RDW (11.5-15.5) % Plt Count (150-450) k/uL Neutrophils % % Lymphocytes % % Monocytes % % Eosinophils % % Basophils % % Neutrophils # (1.3-7.7) k/uL Lymphocytes # (1.0-4.8) k/uL Monocytes # (0-1.0) k/uL Eosinophils # (0-0.7) k/uL Basophils # (0-0.2) k/uL PT 9.4 (9.0-12.0) sec INR 0.9 (<1.2) APTT 20.4 L (22.0-30.0) sec Sodium (137-145) mmol/L Potassium (3.5-5.1) mmol/L Chloride (98-107) mmol/L Carbon Dioxide (22-30) mmol/L Anion Gap mmol/L BUN (9-20) mg/dL Creatinine (0.66-1.25) mg/dL Est GFR (CKD-EPI)AfAm (>60 ml/min/1.73 sqM) Est GFR (CKD-EPI)NonAf (>60 ml/min/1.73 sqM) Glucose (74-99) mg/dL POC Glucose (mg/dL) (75-99) mg/dL POC Glu Boat Outboard Engine Mechanic ID Calcium (8.4-10.2) mg/dL Total Bilirubin (0.2-1.3) mg/dL AST (17-59) U/L ALT (21-72) U/L Alkaline Phosphatase (38-126) U/L Troponin I <0.012 (0.000-0.034) ng/mL Total Protein (6.3-8.2) g/dL Albumin (3.5-5.0) g/dL Urine Color Urine Appearance (Clear) Urine pH (5.0-8.0) Ur Specific [place] (1.001-1.035) Urine Protein (Negative) Urine Glucose (UA) (Negative) Urine Ketones (Negative) Urine Blood (Negative) Urine Nitrite (Negative) Urine Bilirubin (Negative) Urine Urobilinogen (<2.0) mg/dL Ur Leukocyte Esterase (Negative) Acetone, Qual Negative (Negative) 04/11/19 04/11/19 04/11/19 Range/Units 15:33 15:42 16:34 WBC (3.8-10.6) k/uL RBC (4.30-5.90) m/uL Hgb (13.0-17.5) gm/dL Hct (39.0-53.0) % MCV (80.0-100.0) fL MCH (25.0-35.0) pg MCHC (31.0-37.0) g/dL RDW (11.5-15.5) % Plt Count (150-450) k/uL Neutrophils % % Lymphocytes % % Monocytes % % Eosinophils % % Basophils % % Neutrophils # (1.3-7.7) k/uL Lymphocytes # (1.0-4.8) k/uL Monocytes # (0-1.0) k/uL Eosinophils # (0-0.7) k/uL Basophils # (0-0.2) k/uL PT (9.0-12.0) sec INR (<1.2) APTT (22.0-30.0) sec Sodium (137-145) mmol/L Potassium (3.5-5.1) mmol/L Chloride (98-107) mmol/L Carbon Dioxide (22-30) mmol/L Anion Gap mmol/L BUN (9-20) mg/dL Creatinine (0.66-1.25) mg/dL Est GFR (CKD-EPI)AfAm (>60 ml/min/1.73 sqM) Est GFR (CKD-EPI)NonAf (>60 ml/min/1.73 sqM) Glucose (74-99) mg/dL POC Glucose (mg/dL) >600 H >600 H (75-99) mg/dL POC Glu Boat Outboard Engine Mechanic ID Dora Aguirre Ashley Calcium (8.4-10.2) mg/dL Total Bilirubin (0.2-1.3) mg/dL AST (17-59) U/L ALT (21-72) U/L Alkaline Phosphatase (38-126) U/L Troponin I (0.000-0.034) ng/mL Total Protein (6.3-8.2) g/dL Albumin (3.5-5.0) g/dL Urine Color Light Yellow Urine Appearance Clear (Clear) Urine pH 5.0 (5.0-8.0) Ur Specific [place] 1.031 (1.001-1.035) Urine Protein Trace H (Negative) Urine Glucose (UA) 4+ H (Negative) Urine Ketones Negative (Negative) Urine Blood Negative (Negative) Urine Nitrite Negative (Negative) Urine Bilirubin Negative (Negative) Urine Urobilinogen <2.0 (<2.0) mg/dL Ur Leukocyte Esterase Negative (Negative) Acetone, Qual (Negative) 12/16/18 12/16/18 Range/Units 17:28 17:30 WBC (3.8-10.6) k/uL RBC (4.30-5.90) m/uL Hgb (13.0-17.5) gm/dL Hct (39.0-53.0) % MCV (80.0-100.0) fL MCH (25.0-35.0) pg MCHC (31.0-37.0) g/dL RDW (11.5-15.5) % Plt Count (150-450) k/uL Neutrophils % % Lymphocytes % % Monocytes % % Eosinophils % % Basophils % % Neutrophils # (1.3-7.7) k/uL Lymphocytes # (1.0-4.8) k/uL Monocytes # (0-1.0) k/uL Eosinophils # (0-0.7) k/uL Basophils # (0-0.2) k/uL PT (9.0-12.0) sec INR (<1.2) APTT (22.0-30.0) sec Sodium (137-145) mmol/L Potassium 4.2 (3.5-5.1) mmol/L Chloride (98-107) mmol/L Carbon Dioxide (22-30) mmol/L Anion Gap mmol/L BUN (9-20) mg/dL Creatinine (0.66-1.25) mg/dL Est GFR (CKD-EPI)AfAm (>60 ml/min/1.73 sqM) Est GFR (CKD-EPI)NonAf (>60 ml/min/1.73 sqM) Glucose (74-99) mg/dL POC Glucose (mg/dL) 553 H (75-99) mg/dL POC Glu Boat Outboard Engine Mechanic ID Dora Aguirre Calcium (8.4-10.2) mg/dL Total Bilirubin (0.2-1.3) mg/dL AST (17-59) U/L ALT (21-72) U/L Alkaline Phosphatase (38-126) U/L Troponin I (0.000-0.034) ng/mL Total Protein (6.3-8.2) g/dL Albumin (3.5-5.0) g/dL Urine Color Urine Appearance (Clear) Urine pH (5.0-8.0) Ur Specific [place] (1.001-1.035) Urine Protein (Negative) Urine Glucose (UA) (Negative) Urine Ketones (Negative) Urine Blood (Negative) Urine Nitrite (Negative) Urine Bilirubin (Negative) Urine Urobilinogen (<2.0) mg/dL Ur Leukocyte Esterase (Negative) Acetone, Qual (Negative) - Radiology Data Radiology results: report reviewed Chest x-ray. Heart size appears smaller than old exam. Disposition Clinical Impression: Diabetes, Uncontrolled blood glucose Disposition: ADMITTED IP TO THIS [facility] Condition: Stable Is patient prescribed a controlled substance at d/c from ED?: No Referrals: Judd Stanley MD [Primary Care Provider] - 1-2 days Time of Disposition: 18:05
[2018-12-16 16:36] LABS: Glucose,Whole Blood >600 mg/dL (75-99)
[2018-12-16] MEDS ORDERED: ALBUTEROL NEB (CONC) 2.5 MG/0.5 ML INHALATION ONE (17:13)
[2018-12-16] MEDS ORDERED: SODIUM POLYSTYRENE SULFONATE 15 GM/60 ML BOTTLE PO STA (17:13)
--- NOTE | 2018-12-16 17:28 | XR ---
EXAMINATION TYPE: XR chest 2V DATE OF EXAM: 12/16/2018 COMPARISON: 08/02/2018 HISTORY: Cardiopulmonary disease chest pain TECHNIQUE: Frontal and lateral views of the chest are obtained. FINDINGS: Heart and mediastinum are normal. Lungs are clear. Diaphragm is normal. Bony thorax appear s normal. IMPRESSION: Normal chest. Heart size appears smaller than old exam.
[2018-12-16 17:30] LABS: Glucose,Whole Blood 553 mg/dL (75-99)
[2018-12-16] MEDS ORDERED: NALOXONE 0.4 MG/ML 1 ML VIAL IV PRN (18:05)
[2018-12-16] MEDS ORDERED: IBUPROFEN 400 MG TAB PO PRN (18:05)
[2018-12-16] MEDS ORDERED: traMADol 50 MG TAB PO PRN (18:05)
[2018-12-16] MEDS ORDERED: ACETAMINOPHEN TAB 325 MG TAB PO PRN (18:05)
[2018-12-16] MEDS ORDERED: ONDANSETRON 4 MG/2 ML VIAL IVP PRN (18:05)
[2018-12-16] MEDS ORDERED: oxyCODONE-APAP 5-325MG 1 EACH TAB PO PRN (18:05)
[2018-12-16 18:32] LABS: Glucose,Whole Blood 450 mg/dL (75-99)
[2018-12-16 19:42] LABS: Glucose,Whole Blood 251 mg/dL (75-99)
[2018-12-16] MEDS ORDERED: D5-0.45% NACL WITH KCL 20MEQ/L 1,000 ML IV ONE (20:00)
[2018-12-16 20:24] LABS: Glucose,Whole Blood 179 mg/dL (75-99)
[2018-12-16] MEDS ORDERED: INSULIN DETEMIR (LEVEMIR) 100 UNIT/ML SYR SQ SCH (21:00)
[2018-12-16 21:57] LABS: Glucose,Whole Blood 147 mg/dL (75-99)
[2018-12-16] MEDS: metFORMIN 500 MG TAB PO SCH (22:55)
[2018-12-16] MEDS: CARVEDILOL 12.5 MG TAB PO SCH (22:55)
[2018-12-16 23:07] LABS: Glucose,Whole Blood 239 mg/dL (75-99)
[2018-12-17 00:35] LABS: Glucose,Whole Blood 316 mg/dL (75-99)
[2018-12-17] MEDS: SODIUM CHLORIDE 0.9% 1,000 ML IV SCH ×8 (00:39→11:00)
[2018-12-17 02:22] LABS: Glucose,Whole Blood 292 mg/dL (75-99)
[2018-12-17 03:06] LABS: Glucose,Whole Blood 273 mg/dL (75-99)
[2018-12-17] MEDS: D5-0.45% NACL WITH KCL 20MEQ/L 1,000 ML IV SCH ×3 (03:08→14:28)
[2018-12-17 04:13] LABS: Glucose,Whole Blood 242 mg/dL (75-99)
[2018-12-17 05:57] LABS: Glucose,Whole Blood 206 mg/dL (75-99)
[2018-12-17 07:04] LABS: Glucose,Whole Blood 208 mg/dL (75-99)
[2018-12-17] MEDS ORDERED: PANTOPRAZOLE 40 MG TABLET PO SCH (07:30)
[2018-12-17] MEDS ORDERED: INSULIN ASPART (NovoLOG) 100 UNIT/ML VIAL SQ SCH (07:30)
[2018-12-17 08:04] LABS: Glucose,Whole Blood 250 mg/dL (75-99)
[2018-12-17 08:56] LABS: Glucose,Whole Blood 289 mg/dL (75-99)
[2018-12-17] MEDS ORDERED: PANTOPRAZOLE 40 MG/10 ML VIAL IV SCH (09:00)
[2018-12-17 09:57] LABS: Glucose,Whole Blood 250 mg/dL (75-99)
[2018-12-17] MEDS ORDERED: Magnesium Replacement Protocol 1 EACH MISC MISCELLANE PRN (10:01)
[2018-12-17] MEDS ORDERED: Potassium Replacement Protocol 1 EACH MISC MISCELLANE PRN (10:01)
[2018-12-17] MEDS ORDERED: INSULIN REGULAR 100 UNIT in SODIUM CHLORIDE 0.9% 100 ML IV SCH (10:15)
[2018-12-17] MEDS: INSULIN REGULAR 100 UNIT in SODIUM CHLORIDE 0.9% 100 ML IV SCH (10:34)
[2018-12-17] MEDS: ATORVASTATIN 40 MG TAB PO SCH (10:44)
[2018-12-17] MEDS: CARVEDILOL 12.5 MG TAB PO SCH ×2 (10:44→17:28)
[2018-12-17] MEDS: PREGABALIN 50 MG CAP PO SCH ×3 (10:44→20:54)
[2018-12-17] MEDS: metFORMIN 500 MG TAB PO SCH ×2 (10:44→20:54)
[2018-12-17] MEDS: SACUBITRIL/VALSARTAN 49 MG-51 MG TABLET PO SCH (10:45)
[2018-12-17] MEDS: TORSEMIDE 20 MG TAB PO SCH (10:45)
[2018-12-17 10:55] LABS: Glucose,Whole Blood 212 mg/dL (75-99)
[2018-12-17 10:56] VITALS: BMI 39.3
[2018-12-17 12:10] LABS: Glucose,Whole Blood 211 mg/dL (75-99)
[2018-12-17 12:33] LABS: Basophils # (A) 0.1 k/uL (0-0.2); Basophils % (A) 1 %; Eosinophils # (A) 0.2 k/uL (0-0.7); Eosinophils % (A) 2 %; HCT 39.4 % (39.0-53.0); HGB 13.6 gm/dL (13.0-17.5); Lymphocytes # (A) 1.9 k/uL (1.0-4.8); Lymphocytes % (A) 16 %; MCHC 34.4 g/dL (31.0-37.0); MCV 84.3 fL (80.0-100.0); Mean Platelet Volume 7.6; Monocytes # (A) 0.8 k/uL (0-1.0); Monocytes % (A) 7 %; Neutrophils % (A) 74 %; Platelet Count 263 k/uL (150-450); RBC 4.68 m/uL (4.30-5.90); RDW 13.6 % (11.5-15.5); WBC 12.1 k/uL (3.8-10.6)
[2018-12-17 12:43] LABS: Phosphorus 3.3 mg/dL (2.5-4.5); Potassium 4.5 mmol/L (3.5-5.1)
[2018-12-17] MEDS: INSULIN ASPART (NovoLOG) 100 UNIT/ML VIAL SQ SCH ×3 (13:00→20:54)
[2018-12-17 13:03] LABS: Glucose,Whole Blood 283 mg/dL (75-99)
[2018-12-17] MEDS ORDERED: INSULIN DETEMIR (LEVEMIR) 100 UNIT/ML SYR SQ ONE (13:13)
[2018-12-17 14:02] LABS: Glucose,Whole Blood 291 mg/dL (75-99)
--- NOTE | 2018-12-17 16:07 | HP ---
HISTORY AND PHYSICAL DATE OF SERVICE: 12/17/2018 I am covering for Dr. Stanley. CHIEF COMPLAINTS: Uncontrolled blood sugars. HISTORY OF PRESENT ILLNESS: This 53-year-old gentleman with a past medical history of multiple medical problems including CHF exacerbation, history of COPD, diabetes type 2, hypertension, hyperlipidemia, being followed by Dr. Stanley in the outpatient setting is apparently also seeing cardiology. Patient apparently was recommended to stop the insulin, take metformin. For the last about 90 days, the patient is off insulin. The patient is having progressive high blood sugar levels and the patient also has some diabetic neuropathy in the feet and the patient was taken to [facility] and was admitted for further evaluation and treatment. Blood sugars more than 100. There is no evidence of diabetic ketoacidosis. The patient was given IV insulin drip and about 5-7 units/hour and the sugars are around 200 at this time. There is no history of fever, rigors or chills. No history of headache, loss of consciousness, seizures. PAST MEDICAL HISTORY: COPD, CHF, diabetes, hypertension, hyperlipidemia. MEDICATIONS: Prior to admission home medications are: 1. Metformin 1000 mg p.o. b.i.d. 2. Entresto 49/250 one p.o. daily. 3. Levemir 20 units subcu q.h.s. 4. Humalog 10 units daily. 5. Coreg 12.5 mg b.i.d. 6. Aspirin 320 mg. 7. Demadex 40 mg p.o. daily. 8. Protonix 40 mg at breakfast. 9. Lipitor 40 mg. 10.Lyrica 50 mg. ALLERGIES: None. FAMILY HISTORY: History of CABG in the family. SOCIAL HISTORY: Previous history of smoking. No history of current smoking. No alcohol intake. REVIEW OF SYSTEMS: ENT: No diminished vision. No diminished hearing. CARDIOVASCULAR: No angina. RESPIRATORY: No cough. GI as mentioned earlier. : No dysuria. NERVOUS SYSTEM: No numbness or weakness. ALLERGY/IMMUNOLOGY: No asthma or hayfever. MUSCULOSKELETAL: As mentioned earlier. HEMATOLOGY/ONCOLOGY: No history of anemia. ENDOCRINE: No history of diabetes. CONSTITUTIONAL: As mentioned earlier. Dermatology: Negative. Rheumatology: Negative. Psychiatry: As mentioned earlier. PHYSICAL EXAMINATION: GENERAL: Alert and oriented times three. VITAL SIGNS: Pulse is 93, blood pressure 116/68. Respiratory rate 12, temperature 97.8, pulse ox 97% on room air. HEENT: Conjunctivae normal. NECK: No jugular venous distention. CARDIOVASCULAR: S1, S2 muffled. RESPIRATORY: Breath sounds diminished in the bases. A few scattered rhonchi. No crackles. ABDOMEN: Soft, obese, nontender. Legs no edema. No swelling. NERVOUS SYSTEM: Higher functions as mentioned earlier. Moves all 4 limbs. No focal motor or sensory deficits. SKIN: No ulcer, no rash. No bleeding. JOINTS: No active deforming arthropathy. LAB STUDIES: WBC 12.8, hemoglobin 16.5 and . Accu-Cheks noted. ASSESSMENT: 1. Diabetes type 2, uncontrolled with hyperosmolar state with no evidence of ketosis. 2. Hyponatremia. 3. Increased WBC. 4. History of congestive heart failure with chronic systolic dysfunction, ejection fraction 20 to 25%. 5. History of chronic kidney disease stage III. 6. Hypertension. 7. Hyperlipidemia. 8. History of congestive heart failure. 9. History of chronic obstructive pulmonary disease. 10.Remote nicotine dependence. 11.Obesity with body mass index of 39. RECOMMENDATIONS AND DISCUSSION: This 53-year-old gentleman who presented with multiple complex medical issues, we will monitor the patient closely, continue the current medications, symptomatic treatment. I recommend to stop the insulin drip in 2 hours and initiate Lantus at home dose, with some extra additional dose for coverage. Otherwise, we will follow the patient closely and prognosis guarded because of multiple complex medical issues. Further recommendations to follow. A copy of dictation being forwarded to Dr. Stanley who is the primary care physician. NOE / ISISN: [id number] / MTDD
[2018-12-17 16:48] LABS: Glucose,Whole Blood 396 mg/dL (75-99)
[2018-12-17 19:46] LABS: Glucose,Whole Blood 423 mg/dL (75-99)
[2018-12-17] MEDS ORDERED: INSULIN DETEMIR (LEVEMIR) 100 UNIT/ML SYR SQ SCH ×4 (21:00)
[2018-12-18] MEDS: SODIUM CHLORIDE 0.9% 1,000 ML IV SCH ×2 (00:56→08:47)
[2018-12-18 02:38] LABS: Glucose,Whole Blood 231 mg/dL (75-99)
[2018-12-18 07:15] LABS: Glucose,Whole Blood 211 mg/dL (75-99)
[2018-12-18] MEDS ORDERED: PANTOPRAZOLE 40 MG TABLET PO SCH (07:30)
[2018-12-18 08:18] LABS: Calcium 8.9 mg/dL (8.4-10.2); Potassium 4.3 mmol/L (3.5-5.1)
[2018-12-18 08:22] LABS: Basophils # (A) 0.1 k/uL (0-0.2); Basophils % (A) 1 %; Eosinophils # (A) 0.2 k/uL (0-0.7); Eosinophils % (A) 2 %; HCT 40.9 % (39.0-53.0); HGB 13.4 gm/dL (13.0-17.5); Lymphocytes # (A) 1.7 k/uL (1.0-4.8); Lymphocytes % (A) 15 %; MCH 28.4 pg (25.0-35.0); MCHC 32.9 g/dL (31.0-37.0); MCV 86.3 fL (80.0-100.0); Mean Platelet Volume 7.4; Monocytes # (A) 0.9 k/uL (0-1.0); Monocytes % (A) 8 %; Neutrophils # (A) 7.9 k/uL (1.3-7.7); Neutrophils % (A) 72 %; Platelet Count 224 k/uL (150-450); RBC 4.73 m/uL (4.30-5.90)
[2018-12-18] MEDS: TORSEMIDE 20 MG TAB PO SCH (08:58)
[2018-12-18] MEDS: metFORMIN 500 MG TAB PO SCH (08:58)
[2018-12-18] MEDS: ATORVASTATIN 40 MG TAB PO SCH (08:58)
[2018-12-18] MEDS: SACUBITRIL/VALSARTAN 49 MG-51 MG TABLET PO SCH (08:59)
[2018-12-18] MEDS: CARVEDILOL 12.5 MG TAB PO SCH (08:59)
[2018-12-18] MEDS: PREGABALIN 50 MG CAP PO SCH (08:59)
[2018-12-18] MEDS: INSULIN ASPART (NovoLOG) 100 UNIT/ML VIAL SQ SCH ×4 (08:59→12:29)
[2018-12-18] MEDS ORDERED: ASPIRIN 325 MG TAB PO SCH (09:00)
[2018-12-18 09:08] VITALS: BP 159/86; PULSE 85; RESP 16; TEMP 98.6
[2018-12-18 12:21] LABS: Glucose,Whole Blood 285 mg/dL (75-99)
--- NOTE | 2018-12-18 20:12 | DS ---
DISCHARGE SUMMARY DATE OF SERVICE: 12/18/2018. FINAL DIAGNOSES: 1. Diabetes mellitus type 2, uncontrolled with hyperosmolar state with no evidence of ketosis. 2. Hyponatremia. 3. Increased WBC. 4. History of congestive heart failure with chronic systolic dysfunction, ejection fraction 20%-25%. 5. History of chronic kidney disease stage III. 6. Hypertension. 7. Hyperlipidemia. 8. History of congestive heart failure. 9. History of chronic obstructive pulmonary disease. 10.Remote history of nicotine dependence. 11.Obesity with body mass index of 39. DISCHARGE DISPOSITION: The patient will be discharged in stable condition with guarded prognosis. HISTORY OF PRESENT ILLNESS: This 53-year-old gentleman who was admitted with diabetes type 2 uncontrolled with hyperosmolar state was treated with insulin drip. Patient improved significantly. Patient apparently stopped insulin recently. The patient follows with Dr. Judd Stanley in the outpatient setting. The patient improved significantly. On exam, vitals are stable. Cardiovascular: S1, S2. Abdomen: Soft. Nervous System: No focal deficits. Sugars are controlled 237, 285. The patient is also on glucose as an outpatient. DISCHARGE ADVICE AND MEDICATIONS: 1. Diet is consistent carbohydrate. 2. Activity limited until followup. 3. Follow up with Dr. Judd Stanley in 1-2 days. 4. Follow with Cardiology as recommended. 5. Medications are as follows: Aspirin 325 mg p.o. daily. 6. Coreg 12.5 mg p.o. b.i.d. 7. Entresto 49/50 one p.o. daily. 8. Glucophage 1000 mg p.o. b.i.d. 9. Humalog scale 10 units subcu t.i.d. 10.Lyrica 50 mg p.o. as before. 11.Demadex 40 mg daily. 12.Levemir 30 units subcu q.h.s. 13.Accu-Cheks a.c. and at bedtime with results to Dr. Stanley. 14.Lipitor 40 mg p.o. daily. 15.Protonix 40 mg p.o. daily. Once again the patient is discharged in stable condition with guarded prognosis. MMODL / IJN: [id number] /
[2018-12-18 20:45] LABS: Hemoglobin A1C 16.7 % (4.0-6.0)
== END 2018-12-18 14:40 | disposition home or self-care (01) | DRG 638 ==
LOC: EC 12:57 → 4MS4W 16:50 → 4SSUR 21:55
PROVIDERS: ADMIT Hospitalist; ATTEND Hospitalist
DX: E11.00 Type 2 diabetes mellitus with hyperosmolarity without nonketotic hyperglycemic-hyperosmolar coma (NKHHC) (principal); E87.1 Hypo-osmolality and hyponatremia; I50.22 Chronic systolic (congestive) heart failure; I13.0 Hypertensive heart and chronic kidney disease with heart failure and stage 1 through stage 4 chronic kidney disease, or unspecified chronic kidney disease; E11.40 Type 2 diabetes mellitus with diabetic neuropathy, unspecified; E11.22 Type 2 diabetes mellitus with diabetic chronic kidney disease; N18.3 Chronic kidney disease, stage 3 (moderate); E11.65 Type 2 diabetes mellitus with hyperglycemia; E78.5 Hyperlipidemia, unspecified; J44.9 Chronic obstructive pulmonary disease, unspecified; E66.9 Obesity, unspecified; Z68.39 Body mass index [BMI] 39.0-39.9, adult; Z79.82 Long term (current) use of aspirin; Z79.4 Long term (current) use of insulin; Z79.899 Other long term (current) drug therapy; Z87.891 Personal history of nicotine dependence; Z82.49 Family history of ischemic heart disease and other diseases of the circulatory system; Z83.3 Family history of diabetes mellitus
CPT/HCPCS: 36415; 71046; 80048; 80051; 80053; 81003; 82009; 82565; 83036; 84100; 84132; 84484; 84520; 85025; 85610; 85730; 93005; 96365; 96366; 99285

== ENCOUNTER → 2021-09-05 | Outpatient (CLI) | payer OTHER ==
--- NOTE | 2021-09-05 11:47 | CONS ---
CONSULTATION DATE OF SERVICE: 09/05/2021 This 56-year-old gentleman has been evaluated in Sleep Center for possible obstructive sleep apnea-hypopnea syndrome. HISTORY OF PRESENT ILLNESS/SLEEP-WAKE EVALUATION: Patient's usual sleep schedule is from 10 p.m. to 7 a.m. basically 7 days a week. No problems with falling asleep, although he has a TV set in the bedroom. He sleeps on the back and side positions. According to his , he has very loud snoring and he wakes up from sleep 2 times with nocturia. In the morning the patient wakes up tired. He usually does not take naps. [place] Sleepiness Scale is 4. No history of hypnagogic hallucinations, sleep paralysis or cataplexy. The patient described that sometimes he has episodes of awakenings from sleep multiple times, and he believes that possibly he does have some breathing problems at those moments. PAST MEDICAL HISTORY: Positive for hypertension, diabetes, hyperlipidemia, CHF. PAST SURGICAL HISTORY: None. MEDICATIONS: 1. Entresto twice a day. 2. Hydralazine 50 mg 3 times a day. 3. Pantoprazole 40 mg once a day. 4. Atorvastatin 80 mg once a day. 5. Carvedilol 12.5 mg twice a day. 6. Torsemide 10 mg 2 or 3 times a day. 7. Aspirin 325 mg once a day. SOCIAL HISTORY: Negative for smoking or using alcohol. FAMILY HISTORY: Positive for heart problems, hypertension, diabetes. REVIEW OF SYSTEMS: Multiple awakenings from sleep, loud snoring, feeling tiredness. No fevers. No double vision. No recent chest pain. No shortness of breath. No abdominal pain. No bleeding episodes. No blood in the urine. No seizure episodes. PHYSICAL EXAMINATION: GENERAL: Pleasant gentleman without distress. VITAL SIGNS: BP 162/79, HR 105, RR 18, height 6 feet, weight 331.2 pounds, body mass index 44.8, temperature 96.6, oxygen saturation at room air 97%. HEENT: PERRLA, EOMI, evaluation of oropharynx showed tongue protrudes midline. Extremely low position of soft palate; Mallampati IV. NECK: Supple, no JVD. Thyroid is not palpable. Neck is extremely wide, 22 inches in circumference. LUNGS: Clear to percussion and to auscultation. Good air exchange. No wheezing or rhonchi. HEART: S1, S2 regular. No murmurs, gallops, or rubs. ABDOMEN: Obese. EXTREMITIES: One plus ankle edema. PHOTOGRAPHIC PLATEMAKER: Awake, alert, and oriented X3. Cranial nerves 2 to 7 intact. There is no fasciculation or atrophy. noted. No focal deficits observed. IMPRESSION: 1. Snoring, multiple awakenings from sleep, extremely low position of soft palate, Mallampati IV, wide neck, 22 inches in circumference; obstructive sleep apnea- hypopnea syndrome. 2. Obesity; body mass index 44.8. 3. History of congestive heart failure. 4. Hypertension. 5. Diabetes mellitus. 6. Hyperlipidemia. PLAN: 1. Polysomnography for evaluation of patient's breathing during sleep. 2. CPAP/BiPAP titration if sleep study confirms obstructive sleep apnea-hypopnea syndrome. 3. Preferable position during sleep on the side. 4. No driving if patient feels any sleepiness. 5. I will see patient for follow up visit to explain results of testing and following plan. Thank you very much for referring this patient for consultation. Sincerely, Mohinder Gross MD, PhD, FAASM Diplomat of [employer] Sleep Medicine Board of [place] [employer] [facility] [place] MMODL / ISISN: [id number] /
== END ==
LOC: SLEEP 10:32
PROVIDERS: ATTEND Internal Medicine
DX: G47.33 Obstructive sleep apnea (adult) (pediatric) (principal); E11.9 Type 2 diabetes mellitus without complications; I11.0 Hypertensive heart disease with heart failure; I50.9 Heart failure, unspecified; E78.5 Hyperlipidemia, unspecified; E66.9 Obesity, unspecified; Z68.41 Body mass index [BMI] 40.0-44.9, adult; Z79.82 Long term (current) use of aspirin; Z79.899 Other long term (current) drug therapy; Z87.891 Personal history of nicotine dependence
CPT/HCPCS: 99211

== ENCOUNTER → 2023-03-04 | Outpatient (CLI) | payer OTHER ==
[2023-03-04 16:16] LABS: Creatinine,Urine Random 113.6 mg/dL; Protein/Creatinine Ratio,Urine 0.836
[2023-03-04 20:53] LABS: Albumin 4.4 d/dL (3.8-4.9); BUN/Creat Ratio 16.68 Ratio (12.00-20.00); Blood Urea Nitrogen 31.7 mg/dL (9.0-27.0); Calcium 9.9 mg/dL (8.7-10.3); Carbon Dioxide 22.5 mmol/L (21.6-31.8); Chloride 105 mmol/L (96-109); Ferritin 61.7 ng/mL (22.0-322.0); Glucose 101 mg/dL (70-110); Iron 86 UG/DL (65-175); Magnesium 2.1 mg/dL (1.5-2.4); Phosphorus 4.3 mg/dL (2.4-5.1); Potassium 4.5 mmol/L (3.5-5.5); Sodium 141 mmol/L (135-145); Total Iron Binding Capacity 332 UG/DL (228-460); Uric Acid 9.3 mg/dL (3.7-8.7)
[2023-03-04 20:57] LABS: Basophils % (A) 0.7 %; Eosinophils # (A) 0.17 X 10*3/uL (0.04-0.35); Eosinophils % (A) 1.1 %; HCT 53.5 % (39.6-50.0); HGB 16.5 d/dL (12.0-15.0); Lymphocytes # (A) 1.53 X 10*3/uL (0.90-5.00); Lymphocytes % (A) 10.1 %; MCH 27.5 pg (27.0-32.0); MCHC 30.8 d/dL (32.0-37.0); Mean Platelet Volume 9.8 FL (9.5-12.2); Monocytes # (A) 1.47 X 10*3/uL (0.20-1.00); Monocytes % (A) 9.7 %; NRBC Per 100 WBC 0 X 10*3/uL (0.00-0.01); Neutrophils # (A) 11.72 X 10*3/uL (1.80-7.70); Neutrophils % (A) 77.5 %; Platelet Count 257 X 10*3/uL (140-440); RBC 6.01 X 10*6/uL (4.40-5.60); RDW 14.3 % (11.5-14.5); WBC 15.13 X 10*3/uL (4.50-10.00)
[2023-03-04 21:32] LABS: Hepatitis A Antibody IgM Nonreactive; Hepatitis B Core IgM Nonreactive; Hepatitis B Surface Antigen Nonreactive; Hepatitis C IgG Antibody Nonreactive
[2023-03-04 22:14] LABS: Anti-DNA, DS unit <1.0 IU/mL; DNA Double-Stranded Negative (Negative)
[2023-03-04 22:23] LABS: HIV 2 AB Non-Reactive (Non-Reactive); HIV AB P24 Non-Reactive (Non-Reactive); HIV P24 AG Non-Reactive (Non-Reactive)
[2023-03-05 02:40] LABS: Appearance,Urine Clear (Clear); Bilirubin,Urine Negative (Negative); Blood,Urine Negative (Negative); Color,Urine Yellow (Yellow); Ketones,Urine Negative (Negative); Nitrite,Urine Negative (Negative); Specific Gravity,Urine 1.012 (1.001-1.030); Urobilinogen,Urine 0.2 E.U./DL
[2023-03-05 13:43] LABS: C-ANCA <1:20 Titer (<1:20)
[2023-03-06 11:34] LABS: Free Kappa Lt Chain Qnt, Serum 6.26 mg/dL (0.33-1.94); Free Lambda Lt Chain Qnt, Seru 4.03 mg/dL (0.57-2.63)
== END | disposition home or self-care (01) ==
LOC: LABWHC1 13:59
PROVIDERS: ATTEND Internal Medicine Nephrology
DX: E55.9 Vitamin D deficiency, unspecified (principal); N18.32 Chronic kidney disease, stage 3b; N25.81 Secondary hyperparathyroidism of renal origin; M10.9 Gout, unspecified; N39.0 Urinary tract infection, site not specified; D63.1 Anemia in chronic kidney disease; R53.83 Other fatigue; R80.9 Proteinuria, unspecified
CPT/HCPCS: 36415; 80048; 80074; 81001; 82040; 82043; 82306; 82570; 82728; 83516; 83540; 83550; 83735; 83883; 83970; 84100; 84156; 84550; 85025; 86038; 86160; 86162; 86225; 86255; 86334; 87390

== ENCOUNTER → 2023-03-05 | Outpatient (CLI) | payer OTHER ==
--- NOTE | 2023-03-05 13:34 | P.PN ---
Subjective DATE: 03/05/2023 FOLLOW UP VISIT. Patient returned to sleep center for follow-up visit. I so patient for consultation in August 2021, recommended to proceed with the sleep study, but for different reason sleep study was not done. Patient continued to snore, has multiple awakenings from sleep. [place] sleepiness scale is[]. MEDICATIONS:1. Hydralazine 100 mg 3 times a day 2. Atorvastatin 80 mg once a day 3. Carvedilol 12.5 mg twice a day 4. Pantoprazole 40 mg once a day 5. Torsemide 10 mg twice a day 6. Entresto 7. Insulin During physical exam: GENERAL: A pleasant patient without any distress. VITAL SIGNS: BP 168/98, HR 108, RR 16 , weight 324.0, temperature 97.6, oxygen saturation at room air 96 . HEENT: PERRLA, EOMI. NECK: Supple. No JVD. LUNGS: Clear to percussion and to auscultation. Good air exchange. No wheezing or rhonchi. HEART: S1, S2 regular. ABDOMEN: Soft and nontender. EXTREMITIES: No clubbing or cyanosis. CODING TECH: Awake, alert, and oriented x3. No focal deficit. Impressions: 1. Snoring, multiple awakenings from sleep, extremely low position of soft palate Mallampati 4, wide neck. Obstructive sleep apnea hypopnea syndrome 2. Obesity, BMI 43.9. 3. Diabetes mellitus. 4. Hypertension. 5. History of CHF. 6. Hyperlipidemia. 7. Kidney problems. Plan: 1. Polysomnogram for ablation of patient breathing during the sleep 2. CPAP titration for correction of respiratory abnormalities during sleep 3. Losing weight 4. Precautions related to driving. No driving if feel any sleepiness. Patient is aware about civil and criminal liability for unsafe driving, promised to follow recommendations. 5. Sleep hygiene with regular time in bed for at least 8 hours. Thank you very much for allowing me to participate in the management of your patient. Mohinder Gross MD, PhD, FAASM. Diplomat of [place], Sleep Medicine Board by [place] Graphics Editor [facility] [place]
== END ==
LOC: 3 N SLEEP 12:59
PROVIDERS: ATTEND Internal Medicine
DX: G47.33 Obstructive sleep apnea (adult) (pediatric) (principal); E66.9 Obesity, unspecified; E78.5 Hyperlipidemia, unspecified; I50.9 Heart failure, unspecified; I11.0 Hypertensive heart disease with heart failure; E11.9 Type 2 diabetes mellitus without complications; Z79.899 Other long term (current) drug therapy; Z68.41 Body mass index [BMI] 40.0-44.9, adult; Z86.69 Personal history of other diseases of the nervous system and sense organs; Z79.4 Long term (current) use of insulin; Z79.84 Long term (current) use of oral hypoglycemic drugs; Z87.891 Personal history of nicotine dependence
CPT/HCPCS: 99212